=== PATIENT | male | born 1980 | race Caucasian/White ===

== ENCOUNTER 2019-10-04 11:47 | Emergency (ER) | payer OTHER, SELFPAY ==
--- NOTE | ~2019-10-04 | CT_ITS ---
EXAMINATION: CT shoulder LT wo con DATE: 10/04/2019 13:17 INDICATION: Left shoulder pain. TECHNIQUE: Computed tomography (CT) of the left shoulder was performed without intravenous contrast. Automated exposure control and iterative reconstruction technique were employed. The dose-length prod uct was 510.49 mGy-cm. COMPARISON: None FINDINGS: Bone alignment is normal. No fracture. Glenohumeral joint is normal. There is moderate acro mioclavicular joint osteoarthritis. The rotator cuff muscle bellies are normal. IMPRESSION: 1. Moderate left acromioclavicular joint osteoarthritis. Reviewed, dictated and finalized at location B.
--- NOTE | ~2019-10-04 | CT_ITS ---
EXAMINATION: CT cervical spine wo con DATE: 10/04/2019 13:17 INDICATION: Neck pain with radiculopathy. TECHNIQUE: Computed tomography (CT) of the cervical spine was performed without intravenous contrast. Automated exposure control and iterative reconstruction technique were employed. The dose-length pro duct was 373.44 mGy-cm. COMPARISON: None FINDINGS: There is mild kyphosis of cervical spine. Vertebral body heights are normal. There is mildl y decreased disc height at C5-C6. The following disc levels are specifically discussed: C2-C3: There is mild bilateral uncovertebral joint osteoarthritis. There is no facet joint osteoarthr itis. There is no neural foraminal stenosis. There is no central canal stenosis. C3-C4: There is mild bilateral uncovertebral joint osteoarthritis. There is no facet joint osteoarthr itis. There is no neural foraminal stenosis. There is no central canal stenosis. C4-C5: There is no uncovertebral joint osteoarthritis. There is no facet joint osteoarthritis. There is no neural foraminal stenosis. There is no central canal stenosis. C5-C6: There is moderate right and severe left uncovertebral joint osteoarthritis. There is no facet joint osteoarthritis. There is mild left neural foraminal stenosis. There is moderate central canal s tenosis. C6-C7: There is no uncovertebral joint osteoarthritis. There is no facet joint osteoarthritis. There is no neural foraminal stenosis. There is mild central canal stenosis. C7-T1: There is no uncovertebral joint osteoarthritis. There is mild bilateral facet joint osteoarthr itis. There is no neural foraminal stenosis. There is no central canal stenosis. IMPRESSION: 1. Moderate spondylosis at C5-C6 and mild spondylosis at other levels. Reviewed, dictated and finalized at location B.
[2019-10-04 11:51] VITALS: BP 157/93; PULSE 91; RESP 17; TEMP 36.6; O2SAT 100
--- NOTE | 2019-10-04 14:30 | ED.UPPEXIN ---
HPI - Extremity Injury (Upper) General Chief Complaint: Extremity Injury, Upper Stated Complaint: lt shoulder pain Time Seen by Provider: 10/04/19 12:14 Source: patient Mode of arrival: ambulatory Limitations: no limitations History of Present Illness HPI narrative: Patient presents with chief complaint of left shoulder pain and spasming that has occurred over the past week. Patient states that he was seen at [facility] but wants a second opinion as he felt that his care was rushed. 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 Patient states he has had trouble sleeping as he is a natural side sleeper and when any pressure is light on the shoulder the pain becomes intense. Patient states that he has been taking ibuprofen at home for discomfort. Patient states that he is also felt some sharp pains radiating from his neck and intermittent tingling to his left fingers. Patient states he has attempted to contact his primary care Dr. Griggs has that but has not been able to obtain a appointment. Related Data Allergies Allergy/AdvReac Type Severity Reaction Status Date / Time ketorolac [From Toradol] AdvReac Nausea and Verified 10/04/19 11:54 Vomiting Review of Systems Review of Systems: Narrative: EYES: Denies visual changes, redness, or discharge. ENT: Denies rhinorrhea, congestion, sore throat, or otalgia. CARDIOVASCULAR: Denies chest pain, palpitations, or edema. RESPIRATORY: Denies cough or dyspnea. GASTROINTESTINAL: Denies abdominal pain, nausea, vomiting, or diarrhea. GENITOURINARY: Denies dysuria or hematuria. SKIN: Denies rash or itching. MUSCULOSKELETAL: Reports left shoulder pain with intermittent left finger tingling and radiculopathy denies back pain, joint pain, or myalgia. NEUROLOGIC: Denies headache, numbness, dizziness, or weakness. [facility] Past Medical History Medical History (Updated 10/04/19 @ 14:42 by Ofe Duncan PA-C) Depression Elevated liver enzymes Headache Heart burn Hyperlipidemia Kidney stone Removed 2018 Family History Family History (Updated 07/14/17 @ 09:07 by DOCTOR UNKNOWN) Sibling Diabetes mellitus Father Family history of lung cancer Mother Family history of malignant neoplasm of breast in first degree relative Social History Social History (Updated 02/15/19 @ 08:43 by Zuleyma Russell [facility]) Tobacco type: smokeless tobacco Smokeless tobacco user: chewing tobacco Alcohol intake: never Gender identity (if verbalized by the patient): Male Exam Narrative: Exam Narrative: GENERAL: Well-appearing, well-nourished, and in no acute distress. HEAD: Normocephalic, atraumatic. EYES: PERRLA and EOMI. NECK: Supple. No adenopathy or masses. Spasming of the upper left trapezial muscle CHEST: Clear to auscultation. No respiratory distress. No wheezes rales or rhonchi HEART: Regular rate and rhythm. No murmur heard. Normal peripheral pulses. ABDOMEN: Soft, nontender, nondistended, normal active bowel sounds. EXTREMITIES: No outward signs of injury noted to left shoulder. Patient reports occasional sharp pain with abduction of the left shoulder above 70 degrees-patient states from neck to all fingertips. Sensation intact. Network Systems Consultant strength intact. SKIN: Warm, dry, no rash. NEURO: No focal deficits. Alert and oriented x3. PSYCH: Normal mood and affect. Course Vital Signs Vital signs: Vital Signs Temperature 98 F 10/04/19 11:51 Pulse Rate 91 10/04/19 11:51 Respiratory Rate 17 10/04/19 11:51 Blood Pressure 157/93 H 10/04/19 11:51 Pulse Oximetry 100 10/04/19 11:51 Temperature 98 F 10/04/19 11:51 Pulse Rate 99 10/04/19 14:50 Respiratory Rate 18 10/04/19 14:50 Blood Pressure 140/97 H 10/04/19 14:50 Pulse Oximetry 100 10/04/19 14:50 MDM - Extremity Injury (Upper) MDM Narrative Medical decision making narrative: Discussed with patient the lester
[2019-10-04 14:50] VITALS: BP 140/97; PULSE 99; RESP 18; O2SAT 100
== END 2019-10-04 14:55 | disposition home or self-care (01) ==
PROVIDERS: Emergency Provider Emergency Medicine; PCP Internal Medicine
DX: S46.912A Strain of unspecified muscle, fascia and tendon at shoulder and upper arm level, left arm, initial encounter (principal); M54.12 Radiculopathy, cervical region; F32.9 Major depressive disorder, single episode, unspecified; E78.5 Hyperlipidemia, unspecified; X58.XXXA Exposure to other specified factors, initial encounter
CPT/HCPCS: 72125; 73200; 99283

== ENCOUNTER 2019-11-19 02:14 | Outpatient (CLI) | payer OTHER, SELFPAY ==
[2019-11-19 18:59] LABS: SARS-CoV-2 RNA PCR Negative
== END 2019-11-19 02:15 | disposition home or self-care (01) ==
LOC: ANHCOVIDDT 02:14
PROVIDERS: PCP Internal Medicine; Visit Provider Internal Medicine Gastroenterology
DX: Z20.828 Contact with and (suspected) exposure to other viral communicable diseases (principal); M25.512 Pain in left shoulder; G89.29 Other chronic pain
CPT/HCPCS: 87635; C9803; U0003

== ENCOUNTER 2019-11-22 01:31 | Day surgery (SDC) | payer OTHER, SELFPAY ==
[2019-11-16 10:28] VITALS: BMI 29.9
[2019-11-22] MEDS: LACTATED RINGERS 1,000 ML 150 ML IV CONT (11:08)
[2019-11-22 11:12] VITALS: BP 153/98; PULSE 78; RESP 20; TEMP 36.1; O2SAT 98; BMI 30.2
--- NOTE | 2019-11-22 11:16 | WPDANESEPPF ---
Anes - Initial Pre Proc Eval Procedure: Operation Date: 11/22/19 12:15 Proposed Procedures p Esophagogastroduodenoscopy - Aidan Acuna MD Date/Time: 11/22/19 11:16 Surgeon: Aidan Acuna MD Pre Op Diagnosis: GERD Patient Data Age: 39 Gender: M Height: 5 ft 9 in Weight: 92 kg Allergies Allergy/AdvReac Type Severity Reaction Status Date / Time ketorolac [From Toradol] AdvReac Nausea and Verified 11/22/19 10:45 Vomiting Home Medications Medication Instructions Recorded Confirmed Type trazodone 50 mg tablet 50 mg PO .COMPLEX #30 tablet 07/13/19 11/22/19 Rx fluticasone propionate 50 1 spray NASAL BID #18.2 ml 10/06/19 11/22/19 Rx mcg/actuation nasal spray,suspension diltiazem HCl 60 mg 60 mg PO BID #60 cap 11/14/19 11/22/19 Rx capsule,extended release 12 hr nabumetone 500 mg tablet 500 mg PO BID PRN #30 tablet 11/14/19 11/22/19 Rx pantoprazole 20 mg tablet,delayed 20 mg PO QAM #30 tablet 11/21/19 11/22/19 Rx release Patient hx anesthesia problems: none Family hx anesthesia problems: none PMFSH Past Medical History Medical History (Updated 11/14/19 @ 14:40 by Rivera Griggs DO) Depression Elevated liver enzymes Essential hypertension Headache Heart burn Hyperlipidemia Kidney stone Removed 2018 Family History Family History Sibling Diabetes mellitus Father Family history of lung cancer Mother Family history of malignant neoplasm of breast in first degree relative Social History Social History Smoking status: Never smoker Tobacco type: smokeless tobacco Smokeless tobacco user: chewing tobacco Alcohol intake: never Substance use type: does not use Living arrangements: alone Gender identity (if verbalized by the patient): Male Spiritual care concerns: No Anes - Eval Final PreProcedure Day of Procedure 11/22/19 11:16 Patient weight: overweight Heart: regular rate and rhythm Lungs: clear to auscultation Airway: Mallampati scale class III Neurological: alert and oriented Last oral intake: >/= 8 hours ASA classification: III Emergent: no Anesthetic plan: proceed Anesthesia type and monitoring: general GIVS and standard monitoring Informed Consent: The patient's anesthetic plan and its attendant risks and benefits were discussed with the patient/family/POA. Questions were solicited and answers provided to the satisfaction of the patient/family/POA.
--- NOTE | 2019-11-22 12:02 | WPDHPUPDATE1 ---
History and Physical Update Update Date/Time: 11/22/19 12:02 History and Physical has been reviewed, including an updated exam of the patient. There are NO changes in the patient's condition. Risks, benefits, and alternatives have been discussed and questions answered. Patient agrees to proceed with procedure.
[2019-11-22 12:22] VITALS: BP 124/82; PULSE 90; RESP 20; O2SAT 98
[2019-11-22 12:32] VITALS: BP 118/78; PULSE 75; RESP 20; O2SAT 95
[2019-11-22 12:42] VITALS: BP 126/76; PULSE 75; RESP 20; O2SAT 96
== END 2019-11-22 13:05 | disposition home or self-care (01) ==
PROVIDERS: PCP Internal Medicine; Visit Provider Internal Medicine Gastroenterology
PROC: 0DJ08ZZ Inspection of Upper Intestinal Tract, Via Natural or Artificial Opening Endoscopic (ICD-10-PCS; CPT 43235; principal; 2019-11-22 12:15)
DX: K21.00 Gastro-esophageal reflux disease with esophagitis, without bleeding (principal); K44.9 Diaphragmatic hernia without obstruction or gangrene; K29.50 Unspecified chronic gastritis without bleeding; I10 Essential (primary) hypertension; E78.5 Hyperlipidemia, unspecified; F32.9 Major depressive disorder, single episode, unspecified; F17.220 Nicotine dependence, chewing tobacco, uncomplicated
CPT/HCPCS: 43239; 88305; J2704; J7120

== ENCOUNTER 2019-12-26 17:00 | Outpatient (RCR) | payer OTHER, SELFPAY ==
[2019-11-28 16:28] VITALS: BP_SYST 136
--- NOTE | 2019-11-28 17:19 | PTOPEVAL ---
PHYSICAL THERAPY EVALUATION AND PLAN OF CARE Thank you for referring Reynaldo Magallanes to [facility].? The patient is scheduled to be seen for therapy? 2x/week for 4 weeks. Please review, sign, date and return this plan of care CARRIE. I agree with and certify that the following plan of care is medically necessary. Referring Physician Date Attending Provider: Rivera Griggs, DO Evaluation Cardiovascular History Hx Hypertension Yes Gastrointestinal History Hx Gastroesophageal Reflux Disease Yes Genitourinary History Diagnosis left shoulder pain Onset August 2019 Cause insidious Subjective Information Reynaldo reports that his left Query Text:As Reported By Patient/ shoulder started bothering him Family in August 2019. He went on vacation which helped to reduce the pain for that time, he thinks because he was not working. States that now the left shoulder hurts too much to even sleep well. States that he holds his arm tucked up by his chest most of the time. Increased shoulder pain with driving, lifting, pulling, or anything with force. 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 Self Report Pain Assessment Left Shoulder(s) Reported Pain Level 7 Pain Description Aching Pain Frequency Acute,Continuous Greatest Pain Intensity 10 Pain Aggravating Factors Exercise/Activity,Lifting Pain Behaviors Irritable Pain Score Pain Score 7: Self Report Interventions Used Interventions Used By Clinicians Exercise,Heat Pain Relief Interventions Used By Lying Supine,Medication Patient Upper Extremity Range of Motion Scapular/ Shoulder Range of Motion Left Shoulder Flexion - Active 144 Shoulder Abduction - Active 112 Shoulder Abduction - Passive 136 Shoulder Medial Rotation - Active PSIS Query Text:Reach Behind the Back Shoulder Lateral Rotation - Active T1 Query Text:Reach Behind the Head Upper Extremity Muscle Strength Testing Scapular/Shoulder Left Shoulder Flexion Strength 4+ Good + Shoulder Abduction Strength 4+ Good + Shoulder Medial Rotation Strength 5 Normal Shoulder Lateral Rotation Strength 5 Normal Palpation Assessment Palpation Palpation trigger points noted to left infraspinatus, upper trapezius , and pectorlis major - noted tender to palpation
--- NOTE | 2019-12-15 18:01 | PCPTNOTE ---
Patient called & cancelled scheduled appointment this date no reason given.
--- NOTE | 2019-12-22 17:34 | PCPTNOTE ---
Patient called & cancelled scheduled appointment this date stating he is unable to make it.
--- NOTE | 2019-12-26 17:33 | PTOPEVAL ---
PHYSICAL THERAPY DISCHARGE NOTE Thank you for referring Reynaldo Magallanes to [facility] [place]. Please review, sign, date and return this plan of care [facility]. I agree with and certify that the following plan of care is medically necessary. Referring Physician Date Discharge Diagnosis left shoulder pain Onset August 2019 Cause insidious Subjective Information Reynaldo reports that his pain is Query Text:As Reported By Patient/ really about the same. His Family pain management doctor gave him medication. Since he started the pain medication, he started experiencing panic attacks. He doesn't know if the medication caused the pain attacks but it is the only thing that is different. Pain management is trying to get him an MRI. Self Report Pain Assessment Left Shoulder(s) Reported Pain Level 6 Pain Description Aching Pain Frequency Acute,Continuous Pain Aggravating Factors Exercise/Activity,Lifting Pain Behaviors Irritable Pain Score Pain Score 6: Self Report Interventions Used Interventions Used By Clinicians Electrical Stimulation, Exercise,Heat Pain Relief Interventions Used By Lying Supine,Medication Patient Upper Extremity Range of Motion Scapular/ Shoulder Range of Motion Left Shoulder Flexion - Active 144 Shoulder Abduction - Active 150 Shoulder Medial Rotation - Active lateral L3 Query Text:Reach Behind the Back Shoulder Lateral Rotation - Active T1 Query Text:Reach Behind the Head Upper Extremity Muscle Strength Testing Scapular/Shoulder Left Shoulder Flexion Strength 4+ Good + Shoulder Abduction Strength 4+ Good + Shoulder Medial Rotation Strength 5 Normal Shoulder Lateral Rotation Strength 5 Normal Special Tests-Upper Extremity Shoulder Special Tests Empty Can (supraspinatus) Test Positive Left Painful Arc Negative Left Hawkin's Wilman Test Negative Left PT Clinical Summary Reynaldo is a 39 yo male presenting to outpatient physical therapy with chronic left shoulder pain. He presents today with improved ROM compared to initial visit and is strength is WFL. He does have a positive empty can sign today, which he did not
== END 2020-02-08 15:40 | disposition home or self-care (01) ==
LOC: ANHPT 17:00
PROVIDERS: PCP Internal Medicine; Visit Provider Internal Medicine
DX: M25.512 Pain in left shoulder (principal); G89.29 Other chronic pain
CPT/HCPCS: 97014; 97110; 97140; 97161; G0283

== ENCOUNTER 2020-01-07 10:43 | Outpatient (CLI) | payer OTHER, SELFPAY ==
--- NOTE | ~2020-01-07 | MR_ITS ---
EXAMINATION: MR shoulder LT wo con DATE: 01/07/2020 11:59 INDICATION: Left shoulder pain. TECHNIQUE: Magnetic resonance imaging (MRI) of the left shoulder was performed without intravenous co ntrast. Sequences included axial PD-weighted FS FSE, coronal oblique PD-weighted FS FSE and T2-weight ed FS FSE, and sagittal oblique T2-weighted FS FSE and T1-weighted FSE. COMPARISON: Head CT 10/04/2019 FINDINGS: Coracoacromial arch: The acromion undersurface is flat in morphology (type I). There is a stellate fracture of distal clav icle with low signal fracture lines and bone marrow edema. There is severe acromioclavicular joint os teoarthritis. There is mild subacromial/subdeltoid bursitis. Rotator cuff: There is mild supraspinatus and infraspinatus tendinopathy. There is an interstitial tear of infraspi natus tendon at its distal insertion measuring 1.3 cm anterior to posterior by 2 mm proximal to dista l by 30% tendon thickness. Teres minor tendon is normal. There is mild subscapularis tendinopathy. Th ere is mild fatty atrophy of infraspinatus muscle belly. Biceps tendon and glenoid labrum: Biceps tendon is in bicipital groove. There is mild intra-articular biceps tendinopathy. There is deg eneration of superior labrum without well-defined tear. Fluid: There is no glenohumeral joint effusion. Bones/cartilage: Glenoid cartilage is normal. Humeral head cartilage is normal. IMPRESSION: 1. Stellate subchondral fracture of distal clavicle. 2. Severe acromioclavicular joint osteoarthritis. 3. Mild subacromial/subdeltoid bursitis. 4. Partial-thickness tear of infraspinatus tendon. 5. Mild intra-articular biceps tendinopathy. Reviewed, dictated and finalized at location A. 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
== END 2020-01-07 10:44 | disposition home or self-care (01) ==
PROVIDERS: PCP Internal Medicine; Visit Provider Nurse Practitioner
DX: S42.035A Nondisplaced fracture of lateral end of left clavicle, initial encounter for closed fracture (principal); M19.012 Primary osteoarthritis, left shoulder; S46.812A Strain of other muscles, fascia and tendons at shoulder and upper arm level, left arm, initial encounter; M75.52 Bursitis of left shoulder
CPT/HCPCS: 73221

== ENCOUNTER 2020-01-09 23:14 | Emergency (ER) | payer OTHER, SELFPAY ==
[2020-01-09 23:20] VITALS: BP 182/96; PULSE 111; RESP 16; TEMP 36.6; O2SAT 100
--- NOTE | 2020-01-09 23:32 | ED.GENADULT ---
HPI - General Adult General Chief complaint: Unspecified Stated complaint: wants a COVID test Time Seen by Provider: 01/09/20 23:24 Source: patient Mode of arrival: ambulatory Limitations: no limitations History of Present Illness HPI narrative: Patient is a 39-year-old male requesting for Covid test. Patient states that his girlfriend's been exposed to Covid and he just wants to get tested. Patient denies any symptoms. Related Data Allergies Allergy/AdvReac Type Severity Reaction Status Date / Time cortisone Allergy Nausea and Verified 01/09/20 23:22 Vomiting ketorolac [From Toradol] AdvReac Nausea and Verified 01/09/20 23:22 Vomiting Review of Systems Review of Systems: All systems reviewed & are unremarkable except as noted in HPI and below Constitutional: Constitutional: Denies body ache(s), Denies chills, Denies excessive sweating, Denies fatigue, Denies fever(s), Denies headache(s), Denies lethargy, Denies malaise, Denies weakness and Denies weight loss Eyes: Eyes: Denies blurry vision, Denies change in vision and Denies loss of vision ENT: Denies dizziness, Denies ear discharge, Denies headache(s), Denies lip swelling, Denies epistaxis, Denies nasal congestion, Denies neck pain, Denies throat swelling and Denies tongue swelling Cardiovascular: Cardiovascular: Denies chest pain, Denies chest pain at rest, Denies chest pain with activity, Denies diaphoresis, Denies rapid heart rate, Denies edema, Denies irregular heart rhythm, Denies lightheadedness, Denies palpitations, Denies dyspnea and Denies dyspnea on exertion Respiratory: Respiratory: Denies chest congestion, Denies cough, Denies hemoptysis, Denies dyspnea and Denies dyspnea on exertion Gastrointestinal: Gastrointestinal: Denies abdominal pain, Denies melena, Denies hematochezia, Denies diarrhea, Denies nausea, Denies vomiting and Denies hematemesis Musculoskeletal: Musculoskeletal: Denies abnormal gait, Denies deformity, Denies joint swelling, Denies limited range of motion, Denies neck pain and Denies numbness Neurologic: Denies Abnormal speech present, Denies abnormal gait, Denies confusion, Denies dizziness, Denies headache(s), Denies focal weakness, Denies loss of vision, Denies numbness, Denies Other visual disturbances, Denies Sensory deficit (Neuro) and Denies weakness Psychiatric: Psychiatric: Denies confusion, Denies depression, Denies auditory hallucinations, Denies homicidal ideation and Denies suicidal ideation Endocrine: Endocrine: Denies cold intolerance, Denies excessive sweating, Denies fatigue, Denies heat intolerance and Denies palpitations Hematologic/Lymphatic: Hematologic/Lymphatic: Denies easy bleeding and Denies easy bruising Allergic/Immunologic: Allergic/Immunologic: Denies lip swelling, Denies throat swelling and Denies tongue swelling [facility] Past Medical History Medical History (Updated 01/09/20 @ 23:35 by Darshan Busby MD) Clavicle fracture Depression Elevated liver enzymes Essential hypertension Headache Heart burn Hyperlipidemia Kidney stone Removed 2019 Rotator cuff tear Family History Family History (System 12/30/19 @ 10:38 by Dedra Lemon) Sibling Diabetes mellitus Father Family history of lung cancer Mother Family history of malignant neoplasm of breast in first degree relative Social History Social History (System 12/30/19 @ 10:38 by Dedra Lemon) Smoking status: Never smoker Tobacco type: smokeless tobacco Smokeless tobacco user: chewing tobacco Alcohol intake: never Substance use type: does not use Gender identity (if verbalized by the patient): Male Spiritual care concerns: No Exam Const: General: cooperative, healthy appearing, comfortable, no acute distress, well developed, alert and awake; No confusion Orientation/consciousness: oriented to person, oriented to place, oriented to time, patient oriented x3 and No confusion Limitations: no limitation
== END 2020-01-09 23:53 | disposition home or self-care (01) ==
PROVIDERS: Emergency Provider Emergency Medicine; PCP Internal Medicine
DX: Z20.828 Contact with and (suspected) exposure to other viral communicable diseases (principal); I10 Essential (primary) hypertension; E78.5 Hyperlipidemia, unspecified; Z87.442 Personal history of urinary calculi; F17.220 Nicotine dependence, chewing tobacco, uncomplicated
CPT/HCPCS: 99281

== ENCOUNTER 2020-10-19 09:01 | Outpatient (CLI) | payer OTHER, SELFPAY ==
[2020-10-19 10:06] LABS: Basophils Absolute Auto 0.1 K/mm3 (0.0-0.1); Basophils Percent Auto 0.7 % (0.2-1.2); Eosinophils Absolute Auto 0.1 K/mm3 (0-0.3); Eosinophils Percent Auto 1.9 % (0-4.4); Hematocrit 43.3 % (42.0-52.0); Hemoglobin 14.6 g/dL (14.0-18.0); Immature Granulocyte Absolute 0.02 K/mm3 (0.00-0.031); Immature Granulocyte Percent A 0.3 % (0-0.5); Lymphocytes Absolute Auto 1.67 K/mm3 (0.9-3.2); Lymphocytes Percent Auto 24.6 % (18.3-44.2); Mean Corpuscular HGB Conc 33.7 g/dl (32-36); Mean Corpuscular Hemoglobin 30.5 pg (26-34); Mean Corpuscular Volume 90.4 fl (80-100); Mean Platelet Volume 8.8 fl (7.4-10.4); Monocytes Absolute Auto 0.5 K/mm3 (0.1-0.6); Monocytes Percent Auto 7.7 % (2.6-8.5); Neutrophils Absolute Auto 4.4 K/mm3 (1.3-6.7); Neutrophils Percent Auto 64.8 % (45.5-73.1); Platelet Count Result 256 k/mm3 (150-375); Red Blood Count 4.79 M/mm3 (4.6-6.20); Red Cell Distribution Width 12.5 % (11.5-14.5); White Blood Count 6.8 K/mm3 (4.5-10.0)
[2020-10-19 10:18] LABS: Alanine Aminotransferase 50 U/L (4-50); Albumin Level 4.2 g/dL (3.5-5.1); Alkaline Phosphatase 88 U/L (38-126); Anion Gap 6 mmol/L (8-16); Aspartate Amino Transferase 32 U/L (17-59); Bilirubin,Total 0.6 mg/dL (0.2-1.3); Blood Urea Nitrogen 12 mg/dL (9-20); Calcium 9.1 mg/dL (8.4-10.2); Carbon Dioxide 25 mmol/L (22-30); Chloride 106 mmol/L (98-107); Cholesterol 233 mg/dL (0-200); Estimated Glomerular Filt Rate > 60; Glucose 123 mg/dL (65-110); HDL Direct 41 mg/dL; Potassium 3.9 mmol/L (3.4-5.0); Sodium 137 mmol/L (137-145); Triglycerides 206 mg/dL (<150)
[2020-10-19 10:29] LABS: LDL Cholesterol Direct 130 mg/dL
== END 2020-10-19 09:02 | disposition home or self-care (01) ==
PROVIDERS: PCP Internal Medicine; Visit Provider Clinical Nurse Specialist
DX: I10 Essential (primary) hypertension (principal)
CPT/HCPCS: 36415; 80053; 80061; 85025

== ENCOUNTER 2020-11-02 09:03 | Outpatient (CLI) | payer OTHER, SELFPAY ==
[2020-11-02 10:19] LABS: Hemoglobin A1C 5.4 % (<5.7)
== END 2020-11-02 09:04 | disposition home or self-care (01) ==
PROVIDERS: PCP Internal Medicine; Visit Provider Nurse Practitioner
DX: R73.9 Hyperglycemia, unspecified (principal)
CPT/HCPCS: 36415; 83036

== ENCOUNTER 2021-03-15 11:56 | Outpatient (CLI) | payer BC, SELFPAY ==
--- NOTE | ~2021-03-15 | XR_ITS ---
XR knee RT 2V DATE: 03/15/2021 12:17 INDICATION: Knee pain for years. No known injury. TECHNIQUE: Standing AP and lateral views COMPARISON: None FINDINGS: Small suprapatellar knee joint effusion is suggested. No fracture or dislocation, periosteal reaction or bone destruction, radiopaque intra-articular loose body or chondrocalcinosis is noted. The joint spaces are preserved. IMPRESSION: Possible small knee joint effusion Reviewed, dictated and finalized at location B. 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
--- NOTE | ~2021-03-15 | XR_ITS ---
XR knee LT 2V DATE: 03/15/2021 12:17 INDICATION: Knee pain for years. No known injury. TECHNIQUE: Standing AP and lateral views COMPARISON: None FINDINGS: Mild suprapatellar knee joint effusion is suggested. No fracture or dislocation, periosteal reaction or bone destruction, radiopaque intra-articular loose body or chondrocalcinosis or signific ant joint space narrowing is noted. IMPRESSION: Mild knee joint effusion is suggested Reviewed, dictated and finalized at location B. N TENDER
== END 2021-03-15 11:57 | disposition home or self-care (01) ==
PROVIDERS: PCP Internal Medicine; Visit Provider Nurse Practitioner
DX: M25.561 Pain in right knee (principal); M25.562 Pain in left knee
CPT/HCPCS: 73560

== ENCOUNTER 2021-06-04 13:49 | Outpatient (CLI) | payer BC, SELFPAY ==
--- NOTE | ~2021-06-04 | XR_ITS ---
EXAMINATION: XR abdomen/kub 1V INDICATION: Left ureteral stone TECHNIQUE: Supine views of the abdomen were obtained on 2 radiographs. COMPARISON: None FINDINGS: There is a 10 mm stone in the lower pole of the left kidney. A 15 mm density projects below the left L3 transverse process. The bowel gas pattern is normal. The visualized lung bases are clear . IMPRESSION: 1. Left nephrolithiasis. 2. 15 mm density projecting below the left L3 transverse process which may reflect stone versus bowel contents. Reviewed, dictated and finalized at location F. IMPRESSION: 1. Left nephrolithiasis. 2. 15 mm density projecting below the left L3 transverse process which may refl ect stone versus bowel contents.
== END 2021-06-04 13:50 | disposition home or self-care (01) ==
PROVIDERS: PCP Internal Medicine; Visit Provider Nurse Practitioner Family
DX: N20.2 Calculus of kidney with calculus of ureter (principal)
CPT/HCPCS: 74018

== ENCOUNTER 2021-06-11 13:02 | Outpatient (CLI) | payer BC, SELFPAY ==
--- NOTE | ~2021-06-11 | US_ITS ---
EXAMINATION: US retroperitoneal comp DATE: 06/11/2021 13:24 INDICATION: Left ureteral stone TECHNIQUE: Multiple grayscale and Doppler ultrasound images of the kidneys were obtained. COMPARISON: None. FINDINGS: The right kidney measures 12.1 x 5.8 x 6.1 cm. The left kidney measures 11.4 x 5.0 x 5.5 cm . There is a 1.6 cm cyst in the upper pole of the kidney. There is a nonobstructing 1.2 cm stone in t he lower pole of the left kidney. The kidneys demonstrate normal parenchymal echogenicity. There is n o hydronephrosis. The bladder is normal. IMPRESSION: 1. Nonobstructing left nephrolithiasis. Reviewed, dictated and finalized at location A.
== END 2021-06-11 13:03 ==
LOC: MICIMG 13:03
PROVIDERS: PCP Nurse Practitioner Family; Visit Provider Nurse Practitioner Family
DX: N20.0 Calculus of kidney (principal)
CPT/HCPCS: 76770

== ENCOUNTER 2021-06-26 10:08 | Outpatient (CLI) | payer BC, SELFPAY ==
--- NOTE | 2021-06-26 10:45 | ECG_ITS ---
Measurements Intervals [place] Rate: 71 P: 28 [place]: 159 QRS: 59 QRSD: 103 T: 29 QT: 359 QTc: 391 Interpretive Statements SINUS RHYTHM BORDERLINE T WAVE ABNORMALITY- INFERIOR LEADS BASELINE WANDER- I, II, V1-V3 BORDERLINE ECG Electronically Signed On 06-26-2021 12:07:27 CDT by Josh Pandya D.O.
[2021-06-26 11:00] LABS: INR 0.9; Prothrombin Time 12.1 Seconds (11.1-14.7)
== END 2021-06-26 10:09 | disposition home or self-care (01) ==
PROVIDERS: PCP Internal Medicine; Visit Provider Urology
DX: N20.0 Calculus of kidney (principal); I10 Essential (primary) hypertension; Z01.818 Encounter for other preprocedural examination; R94.31 Abnormal electrocardiogram [ECG] [EKG]
CPT/HCPCS: 36415; 85610; 85730; 87086; 93005

== ENCOUNTER 2021-06-28 00:37 | Day surgery (SDC) | payer BC, OTHER, SELFPAY ==
[2021-06-24 15:07] VITALS: BMI 31.2
--- NOTE | 2021-06-24 15:35 | PC.NURSE ---
Report to the Outpatient Waiting Room, entrance under the green pavilion located off [facility], at time 0630 on date 06/28/21. OR Time: 0830____. - You and your visitor will be asked a series of questions to screen for COVID 19 for your protection. - Only one visitor is allowed at this time. - The patient visitor is requested to leave or wait in car when not with patient. - A mask is required within the hospital. Patients may have clear liquids (water, carbonated beverages, clear teas, apple juice) until 3 hours prior to surgery with a maximum of 20 ounces. - No food from midnight until time of surgery - Infants may have breast milk until 4 hours before surgery, infant formula 6 hours prior to surgery. - Children will be allowed to drink immediately following surgery. If applicable, please bring a bottle or sippy cup to assist with drinking. Juice, water, soda, and popsicles are readily available. For infants on formula, please bring formula the day of surgery. Pacifiers are allowed. Take the following medications with a SIP of water the morning of surgery: diltiazem Medications to discontinue per physician Date to take last dose Please no make-up, nail wolof, hairspray, perfume, deodorant, or body powder the day of surgery. No jewelry (including any body piercings) or valuables the day of surgery, leave them at home. Please take a shower or bath the night before, or the morning of, surgery with an antibacterial soap. Wear comfortable, loose fitting clothing. Children are encouraged to wear pajamas. - Jewelry must be removed prior to entering the operating room. Rings and piercings that are not removed may be cut off. - The hospital will not accept responsibility for valuables. - Please leave all valuables, including medications, at home the day of surgery. If you are going home after surgery, a licensed equipment driver must drive you home. - NO public transportation without another adult. - We recommend that an adult stay with you for 24 hours following discharge. - We also recommend that you do not drive, make important decision, drink alcoholic beverages, or take any drugs that were not prescribed by your health care provider for at least 24 hours after your discharge time. For Pediatric surgeries, we recommend two adults accompany the child home (only one inside the building at this time). Follow any additional instructions given to you from your surgeon. If you or anyone in your household have experienced Covid symptoms in the past week, please notify your surgeon or the nurse liaison at the phone number below for possible testing. Telephone instructions given to Reynaldo Magallanes and asked if any additional questions and then verbalized understanding. Patient advised to call surgeon office or pre surgery nurse liaison [phone] if any additional questions.
--- NOTE | 2021-06-27 13:39 | WPDANESEPPF ---
Anes - Initial Pre Proc Eval Procedure: Operation Date: 06/28/21 08:30 Proposed Procedures p Left Extracorporeal Shock Wave Lithotripsy - Ishan Hernandez MD s Possible Left Ueteroscopy, Posible Left Stent Placement - Ishan Hernandez MD Date/Time: 06/27/21 13:39 Surgeon: Ishan Hernandez MD Pre Op Diagnosis: Lt Renal Stone Patient Data Age: 40 Gender: M Height: 1.75 m Weight: 96 kg Allergies Allergy/AdvReac Type Severity Reaction Status Date / Time cortisone Allergy Intermediate Nausea and Verified 06/28/21 07:07 Vomiting ketorolac [From Toradol] AdvReac Intermediate Nausea and Verified 06/28/21 07:07 Vomiting Home Medications Medication Instructions Recorded Confirmed Type pantoprazole 40 mg tablet,delayed 40 mg PO BID #60 tablet 11/20/20 06/28/21 Rx release diltiazem HCl 60 mg tablet 60 mg PO BID #180 tablet 01/07/21 06/28/21 Rx fluticasone propionate 50 1 spray NASAL BID #18.2 ml 01/17/21 06/28/21 Rx mcg/actuation nasal spray,suspension sumatriptan succinate 25 mg tablet See Rx Instructions PO .COMPLEX #9 02/26/21 06/24/21 Rx tablet nabumetone 500 mg tablet 500 mg PO BID PRN #30 tablet 03/12/21 06/28/21 Rx tamsulosin 0.4 mg capsule 0.4 mg PO QHS #90 cap 05/31/21 06/28/21 Rx doxepin 10 mg capsule 10 mg PO QHS #30 cap 06/07/21 06/28/21 Rx hydroxyzine HCl 25 mg PO DAILY PRN 06/24/21 06/28/21 History Patient hx anesthesia problems: none Family hx anesthesia problems: none Results Review: All pre-operative results and documents have been reviewed as part of the pre-operative evaluation. [facility] Past Medical History Medical History Claustrophobia Clavicle fracture Depression Elevated liver enzymes Essential hypertension Headache Heart burn Hyperlipidemia Kidney stone Removed 2019 Rotator cuff tear Family History Family History Sibling Diabetes mellitus Father Family history of lung cancer Mother Family history of malignant neoplasm of breast in first degree relative Social History Social History Smoking status: Never smoker Tobacco type: smokeless tobacco Smokeless tobacco user: chewing tobacco Alcohol intake: never Substance use: never Substance use type: does not use Living arrangements: with friend(s) Gender identity (if verbalized by the patient): Male Spiritual care concerns: No Anes - Eval Final PreProcedure Day of Procedure 06/27/21 13:39 Patient weight: obese Heart: regular rate and rhythm Lungs: clear to auscultation and normal air movement Airway: Mallampati scale class II Neurological: alert and oriented Last oral intake: >/= 8 hours ASA classification: III Emergent: no Anesthetic plan: proceed Anesthesia type and monitoring: general LMA Results Review: All pre-operative results and documents have been reviewed as part of the pre-operative evaluation. Informed Consent: The patient's anesthetic plan and its attendant risks and benefits were discussed with the patient/family/POA. Questions were solicited and answers provided to the satisfaction of the patient/family/POA.
[2021-06-28] VITALS (8 sets, daily range): BP systolic 89–160; BP diastolic 46–91; PULSE 71–107; RESP 13–20; TEMP 36.1–36.5; O2SAT 93–100
--- NOTE | ~2021-06-28 | XR_ITS ---
EXAMINATION: XR abdomen/kub 1V DATE: 06/28/2021 06:29 INDICATION: Nephrolithiasis for planned shockwave lithotripsy. TECHNIQUE: A supine view of the abdomen on 2 radiographs was obtained. COMPARISON: None. FINDINGS: Unchanged teardrop shaped no other urolithiasis. No dilated loops of gas-filled bowel to suggest obst ruction. Lung bases are clear. Bones are unremarkable. 11 mm stone projecting over the mid left kidne y. IMPRESSION: 1. Unchanged 11 mm left renal stone. Reviewed, dictated and finalized at location A.
--- NOTE | 2021-06-28 06:50 | WPDHPUPDATE1 ---
History and Physical Update Update Date/Time: 06/28/21 06:50 Pt. having no flank pain and KUB x2 shows he's passed his left ureteral stone. Will forego left ureteroscopy and just plan left ESWL. History and Physical has been reviewed, including an updated exam of the patient. There are NO changes in the patient's condition. Risks, benefits, and alternatives have been discussed and questions answered. Patient agrees to proceed with procedure.
[2021-06-28] MEDS: LACTATED RINGERS 1,000 ML 30 ML IV CONT ×2 (07:25→09:33)
[2021-06-28] MEDS: ceFAZolin 2 GM/D5W 50 ML 2 GM/50 ML BAG IVPB (08:16)
--- NOTE | 2021-06-28 08:47 | W.PM.PROC2 ---
Procedure Note - Detailed Date of Procedure 06/28/21 Pre-op Diagnosis Lt Renal Stone Post-op Diagnosis Same Procedure Performed Left ESWL Surgeon Ishan Hernandez MD Anesthesia General Description of Procedure The patient was brought to the operative suite where he was placed in the supine position on the Dornier lithotripsy table. The focal point of the lithotripter was placed at a 10mm left renal calculus. A total of 2500 shocks were delivered at a power setting of 3. There appeared to be good fragmentation of the stone. The patient tolerated the procedure well and was taken to the recovery room in good condition. Drains No Packing No Pathology None sent Complications No immediate complications Condition Stable Disposition PACU
[2021-06-28] MEDS: oxyCODONE HCL (*CRX) 5 MG TAB IR PO (10:05)
== END 2021-06-28 10:51 | disposition home or self-care (01) ==
PROVIDERS: PCP Internal Medicine; Visit Provider Urology
PROC: (CPT 50590; principal; 2021-06-28 08:30)
DX: N20.0 Calculus of kidney (principal); I10 Essential (primary) hypertension; F32.9 Major depressive disorder, single episode, unspecified; F17.220 Nicotine dependence, chewing tobacco, uncomplicated; E66.9 Obesity, unspecified; Z68.31 Body mass index [BMI] 31.0-31.9, adult
CPT/HCPCS: 50590; 74018; A9270; J0690; J2250; J2405; J2704; J3010; J7120

== ENCOUNTER 2022-05-02 15:31 | Outpatient (CLI) | payer BC, OTHER, SELFPAY ==
--- NOTE | ~2022-05-02 | XR_ITS ---
XR_KNEE1-2VLT_CR 05/02/2022 15:52 Indication: Knee pain Procedure: 2 views left knee Comparison: No prior studies for comparison. Findings: There is anatomic alignment. No significant joint space narrowing. No fracture, subluxation or dislocation. No significant joint effusion. Impression: 1: No significant bone or joint abnormality. Reviewed, dictated and finalized at location A. Impression: 1: No significant bone or joint abnormality.
--- NOTE | ~2022-05-02 | XR_ITS ---
XR_KNEE1-2VRT_CR 05/02/2022 15:53 Indication: Right knee pain Procedure: 2 views right knee Comparison: No prior studies for comparison. Findings: No fracture, subluxation or dislocation. No significant joint effusion. Anatomic alignment. No joint space narrowing. Impression: 1: No significant bone or joint abnormality. Reviewed, dictated and finalized at location A. Impression: 1: No significant bone or joint abnormality.
== END 2022-05-02 15:32 | disposition home or self-care (01) ==
PROVIDERS: PCP Internal Medicine; Visit Provider Pain Medicine Interventional Pain Medicine
DX: M75.50 Bursitis of unspecified shoulder (principal); Z79.891 Long term (current) use of opiate analgesic; M25.569 Pain in unspecified knee; F41.1 Generalized anxiety disorder; G89.4 Chronic pain syndrome
CPT/HCPCS: 73560

== ENCOUNTER 2023-03-04 10:12 | Outpatient (CLI) | payer BC, SELFPAY ==
--- NOTE | ~2023-03-04 | XR_ITS ---
XR_KNEE1-2VRT_CR 03/04/2023 10:41 INDICATION: Right knee pain PROCEDURE: 2 views right knee COMPARISON: 05/02/2022 FINDINGS: Fracture, dislocation or subluxation is not identified. No significant joint effusion. The soft tissues appear within normal limits. No foreign bodies are identified. IMPRESSION: 1: NO ACUTE BONE OR JOINT ABNORMALITY IDENTIFIED. Reviewed, dictated and finalized at location B. CTOR PAYMENT
--- NOTE | ~2023-03-04 | XR_ITS ---
XR_KNEE1-2VLT_CR 03/04/2023 10:41 Indication: Left knee pain Procedure: 2 views left knee Comparison: 05/02/2022 Findings: No fracture, subluxation or dislocation. There is anatomic alignment. Small joint effusion. Impression: 1: Small joint effusion. Reviewed, dictated and finalized at location B. ET RESEARCH INTERN Impression: 1: Small joint effusion.
--- NOTE | ~2023-03-04 | XR_ITS ---
Lumbosacral Spine: AP and lateral views Clinical History: Pain Findings: The normal lordotic curve is maintained. The vertebral bodies and posterior elements are i ntact. The intervertebral disc spaces are preserved. The sacroiliac joints are normally outlined. Impression: No significant abnormality. Reviewed, dictated [place] [facility] [place] MACHINE Impression: No significant abnormality.
== END 2023-03-04 10:13 | disposition home or self-care (01) ==
LOC: ANHIMG 10:18
PROVIDERS: PCP Internal Medicine; Visit Provider Pain Medicine Interventional Pain Medicine
DX: M17.9 Osteoarthritis of knee, unspecified (principal); M54.17 Radiculopathy, lumbosacral region; F41.1 Generalized anxiety disorder; M25.462 Effusion, left knee
CPT/HCPCS: 72100; 73560

== ENCOUNTER 2023-04-16 11:22 | Outpatient (CLI) | payer BC, SELFPAY ==
[2023-04-16 11:36] LABS: Basophils Absolute Auto 0.1 K/mm3 (0.0-0.1); Eosinophils Absolute Auto 0.2 K/mm3 (0-0.3); Hematocrit 46.2 % (42.0-52.0); Immature Granulocyte Absolute 0.03 K/mm3 (0.00-0.031); Immature Granulocyte Percent A 0.4 % (0-0.5); Lymphocytes Absolute Auto 2.76 K/mm3 (0.9-3.2); Lymphocytes Percent Auto 35.2 % (18.3-44.2); Mean Corpuscular HGB Conc 32.5 g/dl (32-36); Mean Corpuscular Hemoglobin 30.3 pg (26-34); Mean Corpuscular Volume 93.3 fl (80-100); Mean Platelet Volume 8.4 fl (7.4-10.4); Monocytes Absolute Auto 0.8 K/mm3 (0.1-0.6); Monocytes Percent Auto 9.9 % (2.6-8.5); Neutrophils Percent Auto 51.5 % (45.5-73.1); Platelet Count Result 257 k/mm3 (150-375); Red Blood Count 4.95 M/mm3 (4.6-6.20); Red Cell Distribution Width 12.9 % (11.5-14.5); White Blood Count 7.8 K/mm3 (4.5-10.0)
[2023-04-16 11:57] LABS: Alanine Aminotransferase 30 U/L (6-50); Albumin Level 4.2 g/dL (3.5-5.1); Alkaline Phosphatase 88 U/L (38-126); Anion Gap 6 mmol/L (8-16); Aspartate Amino Transferase 31 U/L (17-59); Bilirubin,Total 0.7 mg/dL (0.2-1.3); Blood Urea Nitrogen 15 mg/dL (9-20); Calcium 9.3 mg/dL (8.4-10.2); Carbon Dioxide 29 mmol/L (22-30); Chloride 105 mmol/L (98-107); Cholesterol 169 mg/dL (0-200); Estimated Glomerular Filt Rate > 60; Glucose 108 mg/dL (65-110); HDL Direct 35 mg/dL; Potassium 3.7 mmol/L (3.4-5.0); Sodium 140 mmol/L (137-145); Triglycerides 182 mg/dL (<150)
[2023-04-16 12:07] LABS: LDL Cholesterol Direct 110 mg/dL
== END 2023-04-16 11:23 | disposition home or self-care (01) ==
LOC: ANHLAB 11:23
PROVIDERS: PCP Internal Medicine; Visit Provider Nurse Practitioner
DX: I10 Essential (primary) hypertension (principal)
CPT/HCPCS: 36415; 80053; 80061; 84443; 85025

== ENCOUNTER 2024-06-28 12:59 | Outpatient (CLI) | payer BC, MEDICAID, SELFPAY ==
--- NOTE | ~2024-06-28 | XR_ITS ---
XR_KNEE1-2VRT_CR 06/28/2024 13:24 INDICATION: Right knee pain PROCEDURE: 2 views right knee COMPARISON: No prior studies for comparison. FINDINGS: Fracture, dislocation or subluxation is not identified. Mild osteoarthritis of the right kn ee. The soft tissues appear within normal limits. No foreign bodies are identified. IMPRESSION: 1: Mild osteoarthritis of the right knee. Reviewed, dictated and finalized at location B.
--- NOTE | ~2024-06-28 | XR_ITS ---
Lumbosacral Spine: AP and lateral views Clinical History: Pain Findings: The normal lordotic curve is maintained. The vertebral bodies and posterior elements are i ntact. The intervertebral disc spaces are preserved. Moderate facet arthropathy noted at the lower l umbar spine. The sacroiliac joints are normally outlined. Impression: Moderate facet arthropathy at the lower lumbar spine. Reviewed, dictated and finalized at location . Impression: Moderate facet arthropathy at the lower lumbar spine.
--- NOTE | ~2024-06-28 | XR_ITS ---
XR_[id number] 06/28/2024 13:24 INDICATION: Left knee pain PROCEDURE: 2 views left knee COMPARISON: 03/04/2023 FINDINGS: Fracture, dislocation or subluxation is not identified. The soft tissues appear within norm al limits. No foreign bodies are identified. IMPRESSION: 1: NO ACUTE BONE OR JOINT ABNORMALITY IDENTIFIED. Reviewed, dictated and finalized at location B.
--- OUTSIDE RECORDS SUMMARY | 2024-06-28 13:07 | XMS_ITS | CONTINUITY OF CARE DOCUMENT ---
Author Name javad farnsworth Address Unknown Organization [facility] Address [address] [facility] [address] [place] [address] Phone [phone] Care Team Providers Care Recreation Programmer Name Role Phone Rufina RUANO, Jose M Unavailable [phone] MIRELLA RUANO, DLILAN Unavailable [phone] Zander RUANO, Ken Gil Unavailable [phone] INSURANCE PROVIDERS Payer name Policy type / Coverage type [employer] party ID [employer] OPEN ACCESS Other [id number]
--- OUTSIDE RECORDS SUMMARY | 2024-06-28 13:07 | XMS_ITS | Data Portability ---
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 He reports injury on 11/14/2023 when he was at a wedding and dancing, twisted his knee. Since then he has had pain, swelling, and difficulty walking. he reports catching, and his knee also has been giving out on him on a regular basis. He has a history of fluid on the knees and has gotten multiple aspirations and cortisone injections. He has also been wearing a brace which has helped. He rates his pain as 7/10. 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 Review of systems per patient questionnaire Physical exam: Antalgic gait. 1+ effusion. Tenderness over the medial joint line and anterior medial knee. Range of motion 0-130, pain in terminal flexion, positive Dustin's. Guarded with ligament exam but a firm endpoint on Faustina's, posterior drawer, stable varus and valgus stress. X-rays of the knee were reviewed, demonstrating no acute bony abnormality, preserved joint space Given his acute injury with Mechanical symptoms and giving out of the knee, I would like to send him for MRI to evaluate the ligaments and meniscus. In the meantime, we will also send him to physical therapy. He can not take anti-inflammator ies because of history of kidney disease, so he should use topical Voltaren. He currently chews tobacco, we discussed the effects of nicotine on healing and that he should cut back on nicotine as much as possible. He should be off nicotine for elective surgery. 3 minutes were spent discussing this. We will see him back after the MRI. Not available 11/30/2023 11:31:30 12/28/2023 12/28/2023 43-year-old male presents for follow-up of his right knee. He originally had meniscal symptoms and we sent him for MRI. He has been doing physical therapy as well and reports that has been helping, feeling better, he currently rates his pain 6/10. His mechanical symptoms have been improving as well. he has not been taking any anti-inflammator ies. He is chronically on Vicodin. He has tenderness primarily over the anterior lateral knee. No tenderness over the medial joint line. Range of motion 0-140, no pain at terminal flexion MRI was reviewed, demonstrating medial meniscus tear with a horizontal tear of the medial body and a possible ramp lesion Given his improvement with conservative management, We will continue with physical therapy. He may follow-up as needed. We discussed if he has worsening mechanical symptoms, that would be a reason to consider surgery for partial meniscectomy Versus repair. He is in agreement with plan. Not available 12/28/2023 10:30:09 Plan of Treatment Reminders Order Date Submit Date Provider Last Modified By Organization Details Last Modified Time Details Appointments None recorded. Lab None recorded. Referral physical therapist referral - continuatio n of therapy for R knee 2023 [facility], [address] [place], [address], 4 10:31:06 physical therapist referral - eval and treat 2023 024 [facility], [address] [place], [address], 4 10:54:12 Procedures None recorded. Surgeries None recorded. Imaging MRI, knee, w/o contrast [address] [facility] [address] [place], [address], 17:09:33 Medication Orders None recorded. Patient TargetsNo targets recorded. Patient InstructionsNo instructions recorded. Reason for Referral Physical Therapist Referral for Pain of right knee joint eval and treat Referring Physician: Papa Smith, Orthopedic Surgery, Encounter Date: 11/30/2023 Physical Therapist Referral for Pain of right knee joint R knee continuation of therapy for R knee Referring Physician: Papa Smith, Orthopedic Surgery, Encounter Date: 12/28/2023 Results Created Date Observation Date Name Description Value Unit Range Abnormal Flag Note LastModifiedBy Organization Detail LastModifiedTime 11/25/1911/15/2023 XR, knee, 3 view No observ ation record ed. [email or web address] Not Available 11/09 10:43:19 12/22/19 24 12/22/2023 MRI, knee, w/o contr ast No observ ation record ed. [email or web address] [facility] [address] [place], [address], 12/22/2023 22:06:03 02/16/19 25 02/17/2024 CT, abdom en + pelvi s, w/o contr ast No observ ation record ed. [address] [place], [address], 02/17/2024 14:50:55 02/18/19 25 02/19/2024 XR, abdom en No observ ation record ed. [address] [place], [address], 02/19/2024 11:07:34 Result Notes None recorded. Problems Name Problem SNOMED Code Status Onset Date Resolution Date Notes Provider Name and Address Organization Details Recorded Time Pain of right knee joint 940799137877257 Active 2023 PATRICIA Easton, [place] [facility] [place] [employer] [facility] 10:17:29 Problem Notes None recorded. Procedures Surgical History None recorded. Imaging Results Imaging Date Name Status LastModified by Organiz ation Details LastModified Time 11/15/2023 XR, knee, 3 view completed [email or web address] Information not available 11/25/2023 10:43:19 12/22/2023 MRI, knee, w/o contrast completed [email or web address] [facility] [address] [place], [address], 12/22/2023 22:06:03 02/17/2024 CT, abdomen + pelvis, w[facility]o [email or web address] [address] [place], [address], 02/17/2024 14:50:55 02/19/2024 XR, abdomen completed [email or web address] [address] [place], [address], 02/19/2024 11:07:34 Procedure Notes None recorded. Medical Equipment None Reported. Allergies Allergen ID Allergen Name Allergen Category Reaction Reaction Severity Criticality Documentation Date Start Date Code Code System Note Provider Name and Address Organization Details Recorded Time 24826 tramadol medicatio n Not available Not available Not available 11/30/2023 46194 RxNorm PATRICIA Easton, [facility] [employer] [facility] [employer] 4 10:13:22 05086 cortisone medicatio n lighthead edness Not available Not available 11/30/2023 2878 RxNorm PATRICIA Easton, [facility] [employer] [facility] [employer] 10:13:47 Medications Name Sig Start Date Stop Date Status Note LastModified by Organization Details LastModified Time cyclobenzapr ine 10 mg tablet 11/29 completed Not Available Not Available Not Available nicotine 14 mg/24 hr daily transdermal patch 11/29 completed Not Available Not Available Not Available divalproex 250 mg tablet,delay ed release 11/29 completed Not Available Not Available Not Available tizanidine 4 mg tablet TAKE 1 TABLET BY MOUTH TWICE A DAY NEEDED active Not Available Not Available No t Available ranitidine 300 mg tablet 11/29 completed Not Available Not Available Not Available ondansetron HCl 4 mg tablet 11/29 completed Not Available Not Available Not Available amlodipine 5 mg tablet 11/29 completed Not Available Not Available Not Available divalproex 500 mg tablet,delay ed release 11/29 completed Not Available Not Available Not Available doxepin 10 mg capsule TAKE 1 CAPSULE BY MOUTH EVERY DAY AT BEDTIME NEEDED FOR SLEEP active Not Available Not Available No t Available sulfamethoxa zole 800 mg-trimethop rim 160 mg tablet TAKE 1 TABLET BY MOUTH EVERY 12 HOURS FOR 7 DAYS 12/23 completed Not Available Not Available Not Available hydrocodone 10 mg-acetamino phen 325 mg tablet TAKE 1 TABLET BY MOUTH 4 TIMES A DAY NEEDED active Not Available Not Available No t Available hydrocodone 7.5 mg-acetamino phen 325 mg tablet TAKE 1 TABLET BY MOUTH 5 TIMES A DAY NEEDED 12/23 completed Not Available Not Available Not Available cephalexin 500 mg capsule TAKE 1 CAPSULE BY MOUTH EVERY 8 HOURS FOR 10 DAYS 11/29 completed Not Available Not Available Not Available pantoprazole 40 mg tablet,delay ed release TAKE 1 TABLET BY MOUTH TWICE DAILY active Not Available Not Available No t Available acetaminophe n 300 mg-codeine 60 mg tablet 11/29 completed Not Available Not Available Not Available zolpidem 10 mg tablet 11/29 completed Not Available Not Available Not Available diltiazem 60 mg tablet TAKE 1 TABLET BY MOUTH TWICE DAILY 11/29 completed Not Available Not Available Not Available diazepam 5 mg tablet active Not Available Not Available No t Available escitalopram 10 mg tablet 11/29 completed Not Available Not Available Not Available escitalopram 20 mg tablet 11/29 completed Not Available Not Available Not Available Vitals Date Recorded Body height Body mass index (BMI) Body weight Provider Name and Address Organization Details Last Updated DateTime 11/30/2023 152.4 cm 41 kg/m2 69797.4 g PATRICIA Easton [employer] 11/30/2023 10:12:31 Date Recorded Body height Body mass index (BMI) Body weight Provider Name and Address Organization Details Last Updated DateTime 12/28/2023 152.4 cm 41 kg/m2 77656.4 g PATRICIA Easton [employer] 12/28/2023 09:55:47 Social History Question Answer Notes LastModified by Organizat ion Details LastModified Time What Was The Date Of Your Most Recent Tobacco Screening? 11/30/2023 [email or web address] Information not available 11/30/2023 Sex: Unknown Functional Status Question Answer Note LastModified by Organization D etails LastModified Time Do you or have you ever used any other forms of tobacco or nicotine? Yes [email or web address] [email or web address] Information not available 11/30/2023 What is your level of alcohol consumption? None [email or web address] Information not available 11/30/2023 Mental Status None recorded. Family History Relationship Description Onset Age of this Age Resolved Age Notes LastModified by Organization Details LastModified Time Father History of malignant neoplasm [email or web address] Not available 2023 10:16:01 Father Diabetes mellitus Not available 2023 10:16:08 Medical History No medical history recorded. Past Encounters Encounter ID Performer Location Encounter Start Date Encounter Closed Date Diagnosis/Indication Diagnosis SNOMED-CT Code Diagnosis ICD10 Code Diagnosis Note [id number] Papa Smith MD [facility] [address] 11/30/2023 09:56:16 11/30/2023 10:44:20 Pain of right knee joint [id number] 13412 M25.679 [id number] Papa Smith MD [facility] [address] 12/28/2023 09:53:12 12/28/2023 10:18:01 Pain of right knee joint [id number] 70867 M25.561 Health Concerns Section Related Observation LastModified by Organization Detai ls LastModified Time None Recorded Concern Status LastModified by Organization Details LastModified Time None Recorded Advance Directives Directive None Recorded Payers Encounter Date Sequence Insurance Name Policy Number Policy Beth Covered Member ID Beth Member ID Guarantor Name 11/30/2023 1 [facility] (MEDICAID REPLACEMENT - HMO) [id number] Reynaldo Magallanes [id number] Reynaldo Magallanes 12/28/2023 1 [facility] (MEDICAID REPLACEMENT - HMO) [id number] Reynaldo Magallanes [id number] Reynaldo Magallanes
--- OUTSIDE RECORDS SUMMARY | 2024-06-28 13:07 | XMS_ITS | Continuity of Care Document ---
Author Organization [facility] Address [address] [place] [address] [place] [address] Phone Care Team Providers Care Check Totaler Name Role Phone Nehemias Carter MD Unavailable Unavailable Allergies, Adverse Reactions, Alerts Substance Reaction Status Criticality No Known Allergies Active No Inform ation Medications Medication Instructions Dosage Effective Dates (start - stop) Status Comments Zantac 300 mg tablet take 1 tablet by oral route every day at bedtime - Active Ambien 10 mg tablet take 1 tablet by oral route every day at bedtime 10 MG - Active Tylenol-Codeine #4 300 mg-60 mg tablet take 1 tablet by oral route every 6 hours as needed - Active PRN for headache, 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 Valium 5 mg tablet take 1 tablet by oral route 2 times every day 5 MG - Active avoid driving or operate machines Lexapro 20 mg tablet take 1 tablet by oral route every day 20 MG - Active Procedures Procedure Date OFFICE/OUTPATIENT VISIT, EST OFFICE/OUTPATIENT VISIT, EST OFFICE/OUTPATIENT VISIT, EST OFFICE/OUTPATIENT VISIT, EST OFFICE/OUTPATIENT VISIT, EST OFFICE/OUTPATIENT VISIT, EST OFFICE/OUTPATIENT VISIT, EST OFFICE/OUTPATIENT VISIT, EST OFFICE/OUTPATIENT VISIT, EST PREV VISIT, NEW, AGE 18-39 OFFICE/OUTPATIENT VISIT, NEW Advance Directives Directive Yes / No Effective Date File Name No Information Encounters Encounter Description Practice Location Reason(s) For Visit Diagnoses Date Provider Providers Copied on Encounter OFFICE/OUTPA TIENT VISIT, [facility], [address], [place], [place], [address], [place] tel:[phone] [facility] headache1 (chief complaint) GERD1 (chief complaint) anxiety1 (chief complaint) insomnia1 (chief complaint) Generalized anxiety disorderOther insomniaHeadacheGER D w/o esophagitis 6 Raul Del Cid. [address], [place], [place], [address] , [place]. tel:[phone] Referring Provider: [address], [place], [place], [address]. tel:[phone] OFFICE/OUTPA TIENT VISIT, [facility], [address], [place], [place], [address], [place] tel:[phone] [facility] HTN1 (chief complaint) GERD1 (chief complaint) headache1 (chief complaint) anxiety1 (chief complaint) muscle pain1 (chief complaint) HeadacheGERD w/o esophagitisGenerali zed Anxiety DisorderOther insomnia 5 Raul Del Cid. [address], [place], [place], [address] , [place]. tel:[phone] Referring Provider: [address], [place], [place], [address]. tel:[phone] OFFICE/OUTPA TIENT VISIT, [facility], [address], [place], [place], [address], [place] tel:[phone] [facility] HTN1 (chief complaint) headache1 (chief complaint) GERD1 (chief complaint) anxiety (chief complaint) anxiety1 (chief complaint) Essential (primary) hypertensionTobacco useGERD without esophagitisOther insomnia 5 Raul Del Cid. [address], [place], [place], [address] , [place]. tel:[phone] Referring Provider: [address], [place], [place], [address]. tel:[phone] OFFICE/OUTPA TIENT VISIT, [facility], [address], [place], [place], [address], [place] tel:[phone] [facility] headache (chief complaint) HTN (chief complaint) MOod swing (chief complaint) insomnia (chief complaint) GERD (chief complaint) Dietary surveillance and counselingInsomnia, unspecifiedHeadache BP - High blood pressureMood disorder 5 Raul Del Cid. [address], [place], [place], [address] , [place]. tel:[phone] Referring Provider: [address], [place], [place], [address]. tel:[phone] OFFICE/OUTPA TIENT VISIT, [facility], [address], [place], [place], [address], [place] tel:[phone] [facility] HTN (chief complaint) GERD (chief complaint) headache (chief complaint) mood disorder (chief complaint) back pain (chief complaint) HeadacheBP - High blood pressurePersonality disorder characterized by alternating episodes of mood swings from mild to moderate depression to episodes full of hyperactivity, excitement, elevated mood and high energyLumbago 5 Raul Del Cid. [address], [place], [place], [address] , [place]. tel:[phone] Referring Provider: [address], [place], [place], [address]. tel:[phone] OFFICE/OUTPA TIENT VISIT, [facility], [address], [place], [place], [address], [place] tel:[phone] [facility] HTN (chief complaint) headache (chief complaint) GERD (chief complaint) depression (chief complaint) Dietary surveillance and counselingBP - High blood pressureHeadacheIns omnia, unspecifiedGERD - Gastro-esophageal reflux disease 5 Raul Walker [address], [place], [place], [address] , [place]. tel:[phone] Referring Provider: [address], [place], [place], [address]. tel:[phone] OFFICE/OUTPA TIENT VISIT, [facility], [address], [place], [place], [address], [place] tel:[phone] [facility] headache (chief complaint) HLP (chief complaint) HTN (chief complaint) INsomnia (chief complaint) HeadacheInsomnia, unspecifiedOther and unspecified hyperlipidemiaBlood pressure elevated 5 Raul Del Cid. [address], [place], [place], [address] , [place]. tel:[phone] Referring Provider: Nehemias Carter, [address], [place], [place], [address]. tel:[phone] OFFICE/OUTPA TIENT VISIT, [facility], [address], [place], [place], [address], [place] tel:[phone] [facility] headache (chief complaint) Headache 5 Raul Del Cid. [address], [place], [place], [address] , [place]. tel:[phone] Referring Provider: [address], [place], [place], [address]. tel:[phone] OFFICE/OUTPA TIENT VISIT, [facility], [address], [place], [place], [address], [place] tel:[phone] [facility] headache (chief complaint) TG (chief complaint) vitamin D (chief complaint) Insomnia (chief complaint) HeadacheInsomnia, OtherOther and unspecified hyperlipidemiaUnspe cified vitamin d deficiency 5 Raul Del Cid. [address], [place], [place], [address] , [place]. tel:[phone] Referring Provider: [address], [place], [place], [address]. tel:[phone] PREV VISIT, NEW, AGE 18-39 [facility], [address], [place], [place], [address], [place] tel:[phone] [facility] Physical (chief complaint) Routine Medical ExamHeadacheMonocul ar exotropia with a patternInsomnia, OtherRoutine Medical Exam 5 Raul Del Cid. [address], [place], [place], [address] , [place]. tel:[phone] Family History Family Member Type Diagnosis Age At Onset Mother Problem (finding) Coronary artery disease Brother Problem (finding) Diabetes mellitus Father Problem (finding) Diabetes mellitus Father Problem (finding) COPD Payers Payer name Insurance type Covered libertarian ID Authoriza tion(s) No Information Social History Type Description Quantity Date Captured Comments Alcohol Use Details Caffeine Use Details Unknown Tobacco Use Status Chews tobacco Smoking Status Current some day smoker 016 Sex Male Vital Signs Date / Time: Height Weight BMI Pulse Rate Blood Pressure Temperature Respiratory Rate Body Surface Area Head Circumference BMI percentile Pulse Ox Inhaled Ox 7:12 PM 69.00 in 176.00 lbs 25.9 9 kg/m eter (2) 78 /min 130/70 mm[Hg] 98.5 F 18 /min Chief Complaint And Reason For Visit From encounter dated '02/13/2015 19:12'. headache1 (chief complaint). Description: Pt has chronic headache. Pt feels throbbing headache Pt has headache 2-3 per week. Pt feels stressed out. His dad recently. Pt denies any head injury GERD1 (chief complaint). Description: Donig ok with zantac. Pt has not done upper GI yet. anxiety1 (chief complaint). Description: Pt has chornic anxiety and depression and bipolar. Pt has mood swings. Pt states that lexapro works well. Pt still feels angry and also has mood swings. Pt denies any suicidal or homicidal thought, Pt denies any crying spells. Pt denies any feeling of hopelssness. Pt feels anxious insomnia1 (chief complaint). Description: Pt has insomnia. Pt takes ambien qhs PRN and working well. Pt denies any snoring or any trouble with breathing at night. 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 ordered History Of Present Illness Encounter Date Complaint History Of Prese nt Illness headache1 Pt has chronic h eadache. Pt feels throbbing headache Pt has headache 2-3 per week. Pt feels stressed out. His dad recently. Pt denies any head injury GERD1 Donig ok with za ntac. Pt has not done upper GI yet. anxiety1 Pt has chornic a nxiety and depression and bipolar. Pt has mood swings. Pt states that lexapro works well. Pt still feels angry and also has mood swings. Pt denies any suicidal or homicidal thought, Pt denies any crying spells. Pt denies any feeling of hopelssness. Pt feels anxious insomnia1 Pt has insomnia. Pt takes ambien qhs PRN and working well. Pt denies any snoring or any trouble with breathing at night. HTN1 Pt has not been taking norvasc and his BP is borderline today. Pt denies any chest pain or headache GERD1 Pt has not had a ny heartburn since taking zantac. Pt denies any abd pain or GERD symptmos headache1 Pt has chronic i ntermittent throbbing headache with photophobia and nausea. Pt has had the headache for several years Pt denies any worsening headache. Pt has not done MRI yet Pt failed prophylatic med. Pt dneies any acute headache. Pt denies any head injury anxiety1 Pt has chornic a nxiety and depression. Pt tkaes lexapro and depakote and is helping his mood. Pt has mood swings, which is also well controlled by medication. Pt denies any crying spells. Pt denies any suicidal or homicidal thought muscle pain1 Pt c/o bilateral upper back msucle spasm and pain for several months. Pt also feels tightness around the muscle. Pt denies any back pain Pt denies any injury HTN1 Pt has not been taking norvasc and his BP is ok today. Pt denies any chest pain or headache headache1 Pt has chronic h eadache. Pt has headache 4-6 per month. Pt has throbbing and pounding headache. Pt has nasuea, vomiting and photophobia. Pt states that he had MRI scheduled but did not go since his dad is sick now. Pt states that tylenol #4 PRN helps for his headache GERD1 Pt has GERD symp toms and pt states that zantac works great. Pt denies any abd pain anxiety anxiety1 Pt has chronic a nxiety and depression and mood swings Pt states that his mood is very good since taking depakote. Pt is on lexapro also. Pt has some situational depression since his father has lung CA now. Pt denies any suicidal thought. Pt denies any feeling of hopelessness. headache Additional infor mation: Pt has intermittent throbbing headache. Pt states that tylenol #4 works. Pt has headache 8 times last month. Pt still has not done mRI yet. HTN Pt taks norvasc. BP borderline today MOod swing Pt has chronic a nxiety and depression and mood swings. Pt states that depakote and lexapro helps Pt denies any suicidal thought. Pt states that his mood is better and more stable now. insomnia The patient pres ents for insomnia. Relevant history: a BMI of 26.69. The patient has the following risk factors for insomnia: use of alcohol. Additional information: Pt takes ambien and working ok. Pt denies any snoring or any AM fatigue or any trouble with breathing at night. GERD Pertinent negati ves include back pain, constipation, diarrhea, dyspnea, fever, heartburn, hematuria, nausea, rash, vomiting, weight gain and weight loss. HTN Pt takes norvasc . His BP is ok. Pt denies any chset pain GERD Pertinent negati ves include constipation, diarrhea, dyspnea, fever, hematuria, rash, vomiting, weight gain and weight loss.Additional information:Pt denies any further GERD symptoms. Pt denies any abd pain. Pt is off meds. Pt does not know the name of meds. headache Pertinent negati ves include vomiting. Additional information: Pt has chronic headache. Pt c/o throbbing headache with nausea. Pt has not done MRI yet. Pt states that he has headache about 3-4 per month. Pt still has not done MRI of brain yet. Pt denies any worsening hedache. mood disorder Pt has mood swin g and irritability. Pt denies any suicidal or homicidal thought. Pt states that he just feels very irritable and he is angry at his employer. Pt states that he notices depakote and lexapro helped a little but not too much. back pain Additional infor mation: Pt c/o chronic bailateral flank pain and low back pain for at least 3-4 years. Pt denies any loss of bowel or bladder control. Pt denies any UTI symptmos. Pt states that he had history of renal stone which feels the same way. NO fever, chill. Noinjur. HTN Pt has persisten t HTN. Pt denies any chest pain headache Pertinent negati ves include memory loss or vomiting. Additional information: Pt has chronic headache. Pt still has not had MRi done yet. Pt takes tylenol codeine PRN for headache. GERD Associated sympt oms include heartburn. Pertinent negatives include constipation, diarrhea, dyspnea, fever, hematuria, rash, vomiting, weight gain and weight loss.Additional information:Pt has been having GERD symptoms. Pt is taking something from ER and working well but not sure what it is . Pt denies any GERd or abd pain. depression The patient pres ents with anxious/fearful thoughts but denies fatigue. The depression is associated with headache. The patient denies any vomiting and weight gain. Additional information: Pt has depression and anxiety and anger issue and mood swings for long time. Pt denies any suicidal thought. Pt has crying spells and lack of motivation. headache Additional infor mation: Pt has chronic headache. Pt c.o piercing headache all over head. Pt c/o throbbing and nausea, vomiting and photophobia with headache Pt has not done MRI yet. Tylenol #4 works ok. HLP Pt has elevated TG. Pt has been trying to cut down on carb and fat. HTN Pt has mildly HT N. Pt denies any chest pain or worse headache INsomnia The patient pres ents for insomnia. Relevant history: a BMI of 25.25. The patient has the following risk factors for insomnia: use of alcohol. Additional information: Pt takes ambien 5 mg but not working anymore. headache Additional infor mation: Pt has chronic throbbing headache about 2-3 per month. Pt states that propranolol actually gave him headache. Pt has not had MRI done yet. Pt denies any head injury. Instructions Date Instruction Additional Infor mation Prescribed Activity and Exercise Education Related to Dietary Surveillance and Counseling Prescribed Diet Educ ation/Lifestyle Education Regarding Diet Related to Dietary Surveillance and Counseling Prescribed Diet Educ ation/Lifestyle Education Regarding Diet Related to Dietary Surveillance and Counseling Prescribed Activity and Exercise Education Related to Dietary Surveillance and Counseling Prescribed Diet Educ ation/Lifestyle Education Regarding Diet Related to Dietary Surveillance and Counseling Prescribed Activity and Exercise Education Related to Dietary Surveillance and Counseling Prescribed Diet Educ ation/Lifestyle Education Regarding Diet Related to Dietary Surveillance and Counseling Prescribed Activity and Exercise Education Related to Dietary Surveillance and Counseling Prescribed Diet Educ ation/Lifestyle Education Regarding Diet Related to Dietary Surveillance and Counseling Prescribed Activity and Exercise Education Related to Dietary Surveillance and Counseling Assessments Type Assessment Date assessment Generalized anxiety disorder Feb assessment Other insomnia assessment Headache assessment GERD w/o esophagitis Mental Status Date Cognitive Assessment Orientation - [place] ed to time, place, person, situation.
--- OUTSIDE RECORDS SUMMARY | 2024-06-28 13:07 | XMS_ITS ---
Author Organization [facility] Address [address] [place] [address] Care Team Providers Care Sociology Professor Name Role Phone Sebastien Rainey Unavailable [phone] SOCIAL HISTORY Sex Assigned At : Social History Observation Description Sex Assigned At Male Encounters Encounter Location Date Provider Diagnosis [facility] [address] [facility] [address] [place] [address] 03/16/2024 Sebastien Rainey PLAN OF TREATMENT No Information Progress Notes * Reynaldo MAGALLANESDOB:1980 (43 yo M)Acc No.[id number]:03/16/2024 Progress Notes Patient: Reynaldo MAGALLANES Provider: MD KIMANI, Diann.Michael.C.P, F.A.S.N. :1980 Age:43 Y Sex:Male Date:03/16/2024 Address:[address] [place], [place] [id number] Subjective: * Chief Complaints: * * Medical History: Objective: Assessment: Plan: * Treatment: * Billing Information: * Visit Code: * Procedure Codes: * Sign off status: Pending * Provider: MD KIMANI, Diann.Michael.C.P, F.A.S.N. Date: 03/16/2024
--- OUTSIDE RECORDS SUMMARY | 2024-06-28 13:07 | XMS_ITS | Patient Health Record ---
Author Organization [facility] Address [address] [facility] [address] [place] [address] Care Team Providers Care Residence Supervisor Name Role Phone Sebastien Rainey Unavailable [phone] REASON FOR REFERRAL No Information SOCIAL HISTORY Sex Assigned At : Social History Observation Description Sex Assigned At Male PROBLEMS Problem Type ICD Code Onset Dates Problem Status W/U Status Risk SNOMED Code Notes Problem Chronic pain syndrome (G89.4) Active confirmed Chronic meryl n syndrome (690367168) Problem Essential (primary) hypertension (I10) Active confirmed Essential hypertension (99538014) Problem Chronic kidney disease, stage 2 (mild) (N18.2) Active confirmed Chronic kidne y disease stage 2 (401594284) Problem Calculus of kidney (N20.0) Active confirmed Calculus of kidney (01038728) Problem Renal osteodystrophy (N25.0) Active confirmed Renal osteodystrophy (63805779) Problem Atrioventricular septal defect, unspecified as to partial or complete (Q21.20) Active confirmed Encounters Encounter Location Date Provider Diagnosis [facility] [address] [place] [address] 02/26/2024 Sebastien Rainey Chronic kidney disea se, stage 2 (mild) N18.2 ; Calculus of kidney N20.0 ; Essential (primary) hypertension I10 ; Renal osteodystrophy N25.0 and Chronic pain syndrome G89.4 [facility] [address] [place] [address] 03/02/2024 Sebastien Rainey Chronic kidney disea se, stage 2 (mild) N18.2 ; Chronic pain syndrome G89.4 ; Renal osteodystrophy N25.0 ; Essential (primary) hypertension I10 ; Calculus of kidney N20.0 and Atrioventricular septal defect, unspecified as to partial or complete Q21.20 [facility] [address] [place] [address] 03/16/2024 Sebastien Rainey [facility] [address] [address] 03/02/2024 Sebastien Rainey [facility] [address] [address] 03/02/2024 Sebastien Rainey [facility] [address] [address] 03/02/2024 Sebastine Rainey ASSESSMENTS Encounter Date Diagnosis Assessment Notes Treatment Notes Treatment Clinical Notes Section Notes 02/26/2024 Chronic kidney disease, stage 2 (mild) (ICD-10 - N18.2) 02/26/2024 Calculus of kidney (ICD-10 - N20.0) 03/02/2024 Chronic pain syndrome (ICD-10 - G89.4) 03/02/2024 Chronic kidney disease, stage 2 (mild) (ICD-10 - N18.2) 02/26/2024 Essential (primary) hypertension (ICD-10 - I10) 03/02/2024 Renal osteodystrophy (ICD-10 - N25.0) 02/26/2024 Renal osteodystrophy (ICD-10 - N25.0) 03/02/2024 Essential (primary) hypertension (ICD-10 - I10) 03/02/2024 Calculus of kidney (ICD-10 - N20.0) 02/26/2024 Chronic pain syndrome (ICD-10 - G89.4) 03/02/2024 Atrioventricular septal defect, unspecified as to partial or complete (ICD-10 - Q21.20) PLAN OF TREATMENT No Information
--- OUTSIDE RECORDS SUMMARY | 2024-06-28 13:07 | XMS_ITS ---
Author Organization [facility] Address [address] [place] [address] Care Team Providers Care Public Health Microbiologist Name Role Phone Sebastien Rainey Unavailable [phone] MEDICATIONS Medication SIG (Take, Route, Frequency, Duration) Notes Start Date End Date Status Doxycycline Hyclate 100 MG 1 capsule Ora lly twice a day for 14 days 03/02/2024 03/16/2024 Active SOCIAL HISTORY Sex Assigned At : Social History Observation Description Sex Assigned At Male Encounters Encounter Location Date Provider Diagnosis [facility] [address] [place] [address] 03/02/2024 Sebastien Rainey PLAN OF TREATMENT Medication Medication Name Sig Start Date Stop Date Notes Doxycycline Hyclate 100 MG 1 capsule Ora lly twice a day for 14 days 03/02/2024 03/16/2024 Progress Notes * Reynaldo MAGALLANESDOB:1980 (43 yo M)Acc No.[id number]:03/02/2024 Patient: Reynaldo MAGALLANES :1980 Age:43 Y Sex:Male Address:[facility] [place] [address] * Refills Refill Doxycycline Hyclate Capsule, 100 MG, Orally, 28 Capsule, 1 capsule, twice a day, 14 days * * Date:
--- OUTSIDE RECORDS SUMMARY | 2024-06-28 13:07 | XMS_ITS ---
Author Organization [facility] Address [address] [place] [address] Care Team Providers Care Lawn Technician Name Role Phone Sebastien Rainey Unavailable [phone] MEDICATIONS Medication SIG (Take, Route, Frequency, Duration) Notes Start Date End Date Status Doxycycline Hyclate 100 MG 1 capsule Ora lly twice a day for 14 days 03/02/2024 03/16/2024 Active SOCIAL HISTORY Sex Assigned At : Social History Observation Description Sex Assigned At Male Encounters Encounter Location Date Provider Diagnosis [facility] [address] [place] [address] 03/02/2024 Sebastien Rainey PLAN OF TREATMENT Medication Medication Name Sig Start Date Stop Date Notes Doxycycline Hyclate 100 MG 1 capsule Ora lly twice a day for 14 days 03/02/2024 03/16/2024 Progress Notes * Reynaldo MAGALLANESDOB:1980 (43 yo M)Acc No.[id number]:03/02/2024 Patient: Reynaldo MAGALLANES :1980 Age:43 Y Sex:Male Address:[facility] [place] [address] * Refills Refill Doxycycline Hyclate Capsule, 100 MG, Orally, 28 Capsule, 1 capsule, twice a day, 14 days * * Date:
--- OUTSIDE RECORDS SUMMARY | 2024-06-28 13:07 | XMS_ITS | Clinical Summary ---
Author Organization [facility] Address [address] [place] [address] Care Team Providers Care Micrographics Services Supervisor Name Role Phone Ken Fermin MD Primary Care Provider [phone] Source Comments [facility],non-owned Affiliates and Associated Physician Practices is amultiple site organization consisting of ambulatory clinics and hospital sitesin [place], [place], [place] and [place]. This disclosure is being madepursuant to the Care Everywhere program and may not contain all information available regarding this patient. Last updated 17.[facility] [employer] Allergies Active Allergy Reactions Criticality Noted Date Comments Ketorolac GI Discomfort 03/09/2018 Medications * Be aware that medications may not be up to date on this document. Alwaysverify current medications with the patient. raNITIdine (ZANTAC) 150 MG tablet 8 Active acetaminophen (TYLENOL) 500 MG tablet Take 500 mg by mouth every 4 hours as needed for Fever or Pain Maximum allowable Acetaminophen amount = 4 Grams (4000 mg) / 24 hours. Active Active Problems Problem Noted Date Diagnosed Date Acute kidney injury 08/15/2018 Hydronephrosis with obstructing calculus 019 Right nephrolithiasis 08/15/2018 GERD (gastroesophageal reflux disease) 9 Left nephrolithiasis 11/02/2017 Social History Tobacco Use Types Packs/Day Years Used Date Smoking Tobacco: Never Smokeless Tobacco: Current Chew Alcohol Use Standard Drinks/Week Comments No 0 (1 standard drink = 0.6 oz pur e alcohol) Sex and Gender Information Value Date Recorded Sex Assigned at Not on file Legal Sex Male 4:25 PM CDT Gender Identity Not on file Sexual Orientation Not on file Last Filed Vital Signs Vital Sign Reading Time Taken Comments Blood Pressure 136/82 08/24/2018 6:30 PM CDT Pulse 80 08/24/2018 6:30 PM CDT Temperature 37.1 C (98.7 F) 08/24/2018 6:10 PM CDT Respiratory Rate 18 08/24/2018 6:30 PM CDT Oxygen Saturation 100% 08/24/2018 6:30 PM CDT Inhaled Oxygen Concentration 40% 11/04/2017 3 :10 PM CDT Weight 83.5 kg (184 lb) 08/24/2018 4:09 PM CDT Height 175.3 cm (5' 9 ) 08/24/2018 4:09 PM CDT Body Mass Index 27.17 08/24/2018 4:09 PM CDT Plan of Treatment Health Maintenance Due Date Last Done Comments LIPID TESTING 1980 HIV SCREENING 09/28/1994 HEPATITIS C SCREENING 09/24/1997 DTAP/TDAP/TD VACCINES (1 - Tdap) 09/28/1998 HEPATITIS B VACCINE (1 of 3 - 19+ 3-dose series) 09/28/1998 COVID-19 VACCINE ( - 2023-2 5 season) 2023 DEPRESSION SCREENING 02/10/2024 INFLUENZA VACCINE (Season Ended) 2024 ZOSTER VACCINE (1 of 2) 09/28/2029 HIB VACCINE Aged Out No longer eligi ble based on patient's age to complete this topic HPV VACCINE Aged Out No longer eligi ble based on patient's age to complete this topic MENINGOCOCCAL (Group B) VACC INE SHARED DECISION-MAKING Aged Out No longer eligibl e based on patient's age to complete this topic MENINGOCOCCAL GROUPS A/C/Y/W VACCINE Aged Out No longer eligible b ased on patient's age to complete this topic PNEUMOCOCCAL VACCINE Aged Out No long er eligible based on patient's age to complete this topic Medical Devices Implanted Type Area Railroad Track Inspector Device Identifier Shelf Expiration Date Model / Serial / Lot Stent Uret 6fr 26cm Pgtl Crv Tpr Tip Implanted:Qty: 1 on 11/04/2017 by Corrie Clarke DO at [facility] Left: [facility] 04/19/2020 [id number] / / Insurance MED[place]ID - [place] [facility] Advance Directives * Full Code (Latest Code Status on File) Date Activated Date Inactivated Comments 08/15/2018 4:27 PM 08/16/2018 5:47 PM * Full Code Date Activated Date Inactivated Comments 11/04/2017 10:54 AM 11/04/2017 6:01 PM * Full Code Date Activated Date Inactivated Comments 11/02/2017 9:22 PM 11/03/2017 6:42 PM Care Teams Micrographics Services Supervisor Relationship Specialty Start Date End Date Ken Fermin MD [address] [facility] [address] [place] [address] PCP - General 12/16/17
== END 2024-06-28 13:00 | disposition home or self-care (01) ==
PROVIDERS: PCP Internal Medicine; Visit Provider Pain Medicine Interventional Pain Medicine
DX: F41.1 Generalized anxiety disorder (principal); G89.4 Chronic pain syndrome; M17.9 Osteoarthritis of knee, unspecified; M25.519 Pain in unspecified shoulder; M54.16 Radiculopathy, lumbar region; M54.17 Radiculopathy, lumbosacral region; M75.50 Bursitis of unspecified shoulder; Z51.81 Encounter for therapeutic drug level monitoring; Z79.899 Other long term (current) drug therapy; M17.11 Unilateral primary osteoarthritis, right knee; M25.562 Pain in left knee
CPT/HCPCS: 72100; 73560

== ENCOUNTER 2024-08-10 10:05 | Observation (INO) | payer BC, MEDICAID, SELFPAY ==
--- NOTE | ~2024-08-10 | XR_ITS ---
Exam: Abdomen 1V HISTORY: Left ureteral stone position COMPARISON: 06/04/2021. Reference is also made to a plain film evaluation of the lumbar spine dated (which demonstrated the stone still projecting over the lower pole of the left kidney). TECHNIQUE: Supine images of the abdomen FINDINGS: 6 mm calculus projects along the course of the mid left ureter, at the level of L4. This projects jus t over the pelvic brim (the wing of the ilium). Otherwise, nonspecific nonobstructive bowel gas pattern. IMPRESSION: 6 mm calculus projecting over the course of the mid left ureter, as detailed above. Reviewed, dictated and finalized at location [] IMPRESSION: 6 mm calculus projecting over the course of the mid left ureter, as detailed ab ove.
--- NOTE | ~2024-08-10 | XR_ITS ---
XR retrograde pyelo w/stent LT Ordering provider: Ishan Hernandez MD History: . LEFT STENT PLACEMENT . Comparison: None. FINDINGS/impression: Fluoroscopy time is 57 seconds. Cumulative dose is 27.32 mGy. Left retrograde with stent placement. Reviewed, dictated and finalized at location A.
--- OUTSIDE RECORDS SUMMARY | 2024-08-10 19:45 | XMS_ITS ---
Author Organization [facility] Address [address] [address] [place] [address] Care Team Providers Care Staff Genetic Counselor Name Role Phone Sebastien Rainey Unavailable [phone] Social History Sex Assigned At : Social History Observation Description Sex Assigned At Male Problems Problem Type SNOMED Code ICD Code Onset Dates Problem Status W/U Status Risk Notes Problem Atrioventricular septal defect, unspecified as to partial or complete (Q21.20) Active confirmed Encounters Encounter Location Date Provider Diagnosis [place] [facility] [address] [facility] [address] [place] [address] 03/02/2024 Sebastien Rainey Chronic kidney disea se, [...] Notes * Reynaldo MAGALLANESDOB:1980 (43 yo M)Acc No.[id number]:03/02/2024 Progress Notes Patient: Reynaldo PACHECO Provider: Kavitha VASQUEZ MD, F.A.C.P, F.A.S.N. :1980 A ge:43 Y S ex:Male Date:03/02/2024 [facility] Subjective: * Chief Complaints: * * [...] Treatment: * Billing Information: * Visit Code: 39559 Office Visit, Est Pt., Level 4. * Procedure Codes: * Electronic signature of Joi Rainey MD on 08/10/2024 at 07:45 PM CDT Sign off status: Pending * Provider: Kavitha VASQUEZ MD, Diann.RexP, F.A.S.N. Date: 03/02/2024 Generated for Printing/Faxing/eTransmitting on: 08/10/2024 07:45 PM CDT
--- OUTSIDE RECORDS SUMMARY | 2024-08-10 19:45 | XMS_ITS | Clinical Summary ---
Author Organization [facility] Address [address] [place] [address] Care Team Providers Care Hydramatic Specialist Name Role Phone Ken Fermin MD Primary Care Provider [phone] Source Comments [facility],non-owned Affiliates and Associated Physician Practices is amultiple site organization consisting of ambulatory clinics and hospital sitesin [place], [place], [place] and [place]. This disclosure is being madepursuant to the Care Everywhere program and may not contain all information available regarding this patient. Last updated 17.[facility] [employer] Allergies Active Allergy Reactions Criticality Noted Date [...] 4:09 PM CDT Height 175.3 cm (5' 9) 08/24/2018 4:09 PM CDT Body Mass Index [...] this topic Medical Devices Implanted Type Area Barista Device Identifier Shelf Expiration Date Model / Serial / Lot Stent Uret 6fr 26cm Pgtl Crv Tpr Tip Implanted:Qty: 1 on 11/04/2017 by Corrie Clarke DO at [facility] Left: [facility] 04/19/2020 [id number] / / Insurance MEDICAID - [place] [facility] Advance Directives * Full Code (Latest Code Status on File) Date Activated Date Inactivated Comments 08/15/2018 4:27 PM 08/16/2018 5:47 PM * Full Code Date Activated Date Inactivated Comments 11/04/2017 10:54 AM 11/04/2017 6:01 PM * Full Code Date Activated Date Inactivated Comments 11/02/2017 9:22 PM 11/03/2017 6:42 PM Care Teams Hydramatic Specialist Relationship Specialty Start Date End Date Ken Fermin MD [address] [facility] [address] [place] [address] PCP - General 12/16/17
--- OUTSIDE RECORDS SUMMARY | 2024-08-10 19:45 | XMS_ITS | Continuity of Care Document ---
Author Organization [facility] Address [address] [place] [address] [place] [address] Phone Care Team Providers Care Technical Internship Name Role Phone Nehemias Carter MD Unavailable [...] Providers Copied on Encounter OFFICE/OUTPA TIENT VISIT, [facility], [address], [place], [place], [address], [place] tel:[phone] [facility] headache1 (chief complaint) GERD1 (chief complaint) anxiety1 (chief complaint) insomnia1 (chief complaint) Generalized anxiety disorderOther insomniaHeadacheGER D w/o esophagitis 6 Raul [address] Cid[address], [place], [place], [address] , [place]. tel:[phone] Referring Provider: [address], [place], [place], [address]. tel:[phone] OFFICE/OUTPA TIENT VISIT, [facility], [address], [place], [place], [address], [place] tel:[phone] [facility] HTN1 (chief complaint) GERD1 (chief complaint) headache1 (chief complaint) anxiety1 (chief complaint) muscle pain1 (chief complaint) HeadacheGERD w/o esophagitisGenerali zed Anxiety DisorderOther insomnia 5 Raul [address] Cid[address], [place], [place], [address] , [place]. tel:[phone] Referring Provider: [address], [place], [place], [address]. tel:[phone] OFFICE/OUTPA TIENT VISIT, [facility], [address], [place], [place], [address], [place] tel:[phone] [facility] HTN1 (chief complaint) headache1 (chief complaint) GERD1 (chief complaint) anxiety (chief complaint) anxiety1 (chief complaint) Essential (primary) hypertensionTobacco useGERD without esophagitisOther insomnia 5 Raul [address] Cid[address], [place], [place], [address] , [place]. tel:[phone] Referring Provider: [address], [place], [place], [address]. tel:[phone] OFFICE/OUTPA TIENT VISIT, [facility], [address], [place], [place], [address], [place] tel:[phone] [facility] headache (chief complaint) HTN (chief complaint) MOod swing (chief complaint) insomnia (chief complaint) GERD (chief complaint) Dietary surveillance and counselingInsomnia, unspecifiedHeadache BP - High blood pressureMood disorder 5 Raul Del Cid[address], [place], [place], [address] , [place]. tel:[phone] Referring Provider: [address], [place], [place], [address]. tel:[phone] OFFICE/OUTPA TIENT VISIT, [facility], [address], [place], [place], [address], [place] tel:[phone] [facility] HTN (chief complaint) GERD (chief complaint) headache (chief complaint) mood disorder (chief complaint) back pain (chief complaint) HeadacheBP - High blood pressurePersonality disorder characterized by alternating episodes of mood swings from mild to moderate depression to episodes full of hyperactivity, excitement, elevated mood and high energyLumbago 5 Raul Del Cid[address], [place], [place], [address] , [place]. tel:[phone] Referring Provider: [address], [place], [place], [address]. tel:[phone] OFFICE/OUTPA TIENT VISIT, [facility], [address], [place], [place], [address], [place] tel:[phone] [facility] HTN (chief complaint) headache (chief complaint) GERD (chief complaint) depression (chief complaint) Dietary surveillance and counselingBP - High blood pressureHeadacheIns omnia, unspecifiedGERD - Gastro-esophageal reflux disease 5 Raul Walker [address], [place], [place], [address] , [place]. tel:[phone] Referring Provider: [address], [place], [place], [address]. tel:[phone] OFFICE/OUTPA TIENT VISIT, [facility], [address], [place], [place], [address], [place] tel:[phone] [facility] headache (chief complaint) HLP (chief complaint) HTN (chief complaint) INsomnia (chief complaint) HeadacheInsomnia, unspecifiedOther and unspecified hyperlipidemiaBlood pressure elevated 5 Raul [address] C[address], [place], [place], [address] , [place]. tel:[phone] Referring Provider: Neheimas Carter, [address], [place], [place], [address]. tel:[phone] OFFICE/OUTPA TIENT VISIT, [facility], [address], [place], [place], [address], [place] tel:[phone] [facility] headache (chief complaint) Headache 5 Raul [address] Cid[address], [place], [place], [address] , [place]. tel:[phone] Referring Provider: [address], [place], [place], [address]. tel:[phone] OFFICE/OUTPA TIENT VISIT, [facility], [address], [place], [place], [address], [place] tel:[phone] [facility] headache (chief complaint) TG (chief complaint) vitamin D (chief complaint) Insomnia (chief complaint) HeadacheInsomnia, OtherOther and unspecified hyperlipidemiaUnspe cified vitamin d deficiency 5 Raul Del Cid[address], [place], [place], [address] , [place]. tel:[phone] Referring Provider: [address], [place], [place], [address]. tel:[phone] PREV VISIT, NEW, AGE 18-39 [facility], [address], [place], [place], [address], [place] tel:[phone] [facility] Physical (chief complaint) Routine Medical ExamHeadacheMonocul ar exotropia with a patternInsomnia, OtherRoutine Medical Exam 5 Raul Del Cid[address], [place], [place], [address] , [place]. tel:[phone] Family History Family Member Type Diagnosis Age At Onset Mother Problem (finding) Coronary artery disease Brother Problem (finding) Diabetes mellitus Father Problem (finding) Diabetes mellitus Father Problem (finding) COPD Payers Payer name Insurance type Covered green party ID Authoriza tion(s) No Information Social History [...] Date Complaint History Of Prese nt Illness insomnia1 Pt has insomnia. Pt takes ambien qhs PRN and working well. Pt denies any snoring or any trouble with breathing at night. anxiety1 Pt has chornic a nxiety and depression and bipolar. Pt has mood swings. Pt states that lexapro works well. Pt still feels angry and also has mood swings. Pt denies any suicidal or homicidal thought, Pt denies any crying spells. Pt denies any feeling of hopelssness. Pt feels anxious GERD1 Donig ok with za ntac. Pt has not done upper GI yet. headache1 Pt has chronic h eadache. Pt feels throbbing headache Pt has headache 2-3 per week. Pt feels stressed out. His dad recently. Pt denies any head injury GERD1 Pt has not had a ny heartburn since taking zantac. Pt denies any abd pain or GERD symptmos HTN1 Pt has not been taking norvasc and his BP is borderline today. Pt denies any chest pain or headache headache1 Pt has chronic i ntermittent throbbing [...] thought. Pt denies any feeling of hopelessness. GERD Pertinent negati ves include back pain, constipation, diarrhea, dyspnea, fever, heartburn, hematuria, nausea, rash, vomiting, weight gain and weight loss. insomnia The patient pres ents for insomnia. Relevant history: a BMI of 26.69. The patient has the following risk factors for insomnia: use of alcohol. Additional information: Pt takes ambien and working ok. Pt denies any snoring or any AM fatigue or any trouble with breathing at night. MOod swing Pt has chronic a nxiety and depression and mood swings. Pt states that depakote and lexapro helps Pt denies any suicidal thought. Pt states that his mood is better and more stable now. HTN Pt taks norvasc. BP borderline today headache Additional infor mation: Pt has intermittent throbbing headache. Pt states that tylenol #4 works. Pt has headache 8 times last month. Pt still has not done mRI yet. back pain Additional infor mation: Pt c/o chronic bailateral flank pain and low back pain for at least 3-4 years. Pt denies any loss of bowel or bladder control. Pt denies any UTI symptmos. Pt states that he had history of renal stone which feels the same way. NO fever, chill. Noinjur. mood disorder Pt has mood swin g and irritability. Pt denies any suicidal or homicidal thought. Pt states that he just feels very irritable and he is angry at his employer. Pt states that he notices depakote and lexapro helped a little but not too much. headache Pertinent negati ves include vomiting. Additional information: Pt has chronic headache. Pt c/o throbbing headache with nausea. Pt has not done MRI yet. Pt states that he has headache about 3-4 per month. Pt still has not done MRI of brain yet. Pt denies any worsening hedache. GERD Pertinent negati ves include constipation, diarrhea, dyspnea, fever, hematuria, rash, vomiting, weight gain and weight loss.Additional information:Pt denies any further GERD symptoms. Pt denies any abd pain. Pt is off meds. Pt does not know the name of meds. HTN Pt takes norvasc . His BP is ok. Pt denies any chset pain depression The patient pres ents with anxious/fearful thoughts but denies fatigue. The depression is associated with headache. The patient denies any vomiting and weight gain. Additional information: Pt has depression and anxiety and anger issue and mood swings for long time. Pt denies any suicidal thought. Pt has crying spells and lack of motivation. GERD Associated sympt oms include heartburn. Pertinent negatives include constipation, diarrhea, dyspnea, fever, hematuria, rash, vomiting, weight gain and weight loss.Additional information:Pt has been having GERD symptoms. Pt is taking something from ER and working well but not sure what it is . Pt denies any GERd or abd pain. headache Pertinent negati ves include memory loss or vomiting. Additional information: Pt has chronic headache. Pt still has not had MRi done yet. Pt takes tylenol codeine PRN for headache. HTN Pt has persisten t HTN. Pt denies any chest pain INsomnia The patient pres ents for insomnia. Relevant history: a BMI of 25.25. The patient has the following risk factors for insomnia: use of alcohol. Additional information: Pt takes ambien 5 mg but not working anymore. HTN Pt has mildly HT N. Pt denies any chest pain or worse headache HLP Pt has elevated TG. Pt has been trying to cut down on carb and fat. headache Additional infor mation: Pt has chronic headache. Pt c.o piercing headache all over head. Pt c/o throbbing and nausea, vomiting and photophobia with headache Pt has not done MRI yet. Tylenol #4 works ok. headache Additional infor mation: Pt has chronic [...] Mental Status Date Cognitive Assessment Orientation - [place] ed to time, place, person, situation.
--- OUTSIDE RECORDS SUMMARY | 2024-08-10 19:45 | XMS_ITS ---
Author Organization [facility] Address [address] [place] [address] Care Team Providers Care Health And Safety Representative Name Role Phone Sebastien Rainey Unavailable [phone] Social History Sex Assigned At : Social History Observation Description Sex Assigned At Male Encounters Encounter Location Date Provider Diagnosis [place] [facility] [address] [facility] [address] [place] [address] 03/16/2024 Sebastien Rainey Plan Of Treatment No Information Progress Notes * Reynaldo MAGALLANESDOB:1980 (43 yo M)Acc No.[id number]:03/16/2024 Progress Notes Patient: Reynaldo PACHECO Provider: Kavitha VASQUEZ MD, Diann.Michael.C.P, F.A.S.N. :1980 A ge:43 Y S ex:Male Date:03/16/2024 Address:[address] [place] [address] [id number] Subjective: * Chief Complaints: * * Medical History: Objective: * Vitals: Assessment: Plan: * Treatment: * Billing Information: * Visit Code: * Procedure Codes: * Electronic signature of Joi Rainey MD on 08/10/2024 at 07:44 PM CDT Sign off status: Pending * Provider: Kavitha VASQUEZ MD, F.Michael.C.P, F.A.S.N. Date: 03/16/2024 Generated for Printing/Faxing/eTransmitting on: 08/10/2024 07:44 PM CDT
--- OUTSIDE RECORDS SUMMARY | 2024-08-10 19:45 | XMS_ITS | Patient Health Record ---
Author Organization [facility] Address [address] [facility] [address] [facility] [address] [place] [address] Care Team Providers Care Shipping Technician Name Role Phone Sebastien Rainey Unavailable [phone] Reason For Referral No Information Social History Sex Assigned At : Social History Observation Description Sex Assigned At Male Problems Problem Type SNOMED Code ICD Code Onset Dates Problem Status W/U Status Risk Notes Problem Chronic pain syndrome (720157784) Chronic pain syndrome (G89.4) Active confirmed Problem Essential hypertension (19006427) Essential (primary) hypertension (I10) Active confirmed Problem Chronic kidney disease stage 2 (469881646) Chronic kidney disease, stage 2 (mild) (N18.2) Active confirmed Problem Calculus of kidney (26403383) Calculus of kidney (N20.0) Active confirmed Problem Renal osteodystrophy (73284785) Renal osteodystrophy (N25.0) Active confirmed Problem Atrioventricular septal defect, unspecified as to partial or complete (Q21.20) Active confirmed Encounters Encounter Location Date Provider Diagnosis [place] [facility] [address] [place] [address] 02/26/2024 Sebastien Rainey Chronic kidney disea se, stage 2 (mild) N18.2 ; Calculus of kidney N20.0 ; Essential (primary) hypertension I10 ; Renal osteodystrophy N25.0 and Chronic pain syndrome G89.4 [place] [facility] [address] [address] 03/02/2024 Sebastien Rainey Chronic kidney disea se, stage 2 (mild) N18.2 ; Chronic pain syndrome G89.4 ; Renal osteodystrophy N25.0 ; Essential (primary) hypertension I10 ; Calculus of kidney N20.0 and Atrioventricular septal defect, unspecified as to partial or complete Q21.20 [facility] [address] [address] 03/02/2024 Sebastien Rainey [place] [facility] [address] [facility] [address] [place] [address] 03/02/2024 Sebastien Rainey [place] [facility] [address] [facility] [address] [place] [address] 03/02/2024 Sebastien Rainey Assessments Encounter Date Diagnosis (ICD Code) Assessment [...]
--- OUTSIDE RECORDS SUMMARY | 2024-08-10 19:45 | XMS_ITS ---
Author Organization [facility] Address [address] [address] [place] [address] Care Team Providers Care Body Fitter Name Role Phone Sebastien Rainey Unavailable [phone] Social History Sex Assigned At : Social History Observation Description Sex Assigned At Male Problems Problem Type SNOMED Code ICD Code Onset Dates Problem Status W/U Status Risk Notes Problem Chronic kidney disease stage 2 (261415139) Chronic kidney disease, stage 2 (mild) (N18.2) Active confirmed Problem Calculus of kidney (N20.0) Active confirmed Problem Essential hypertension (39632968) Essential (primary) hypertension (I10) Active confirmed Problem Renal osteodystrophy (68270108) Renal osteodystrophy (N25.0) Active confirmed Problem Chronic pain syndrome (930067784) Chronic pain syndrome (G89.4) Active confirmed Encounters Encounter Location Date Provider Diagnosis [place] [facility] [address] [facility] [address] [place] [address] 02/26/2024 Sebastien Rainey Chronic kidney disea se, [...] No Information Progress Notes * Tracy MAGALLANES:1980 (43 yo M)Acc No.[id number]:02/26/2024 Progress Notes Patient: Reynaldo PACHECO Provider: Kavitha VASQUEZ MD, F.Michael.C.P, F.A.S.N. :1980 A ge:43 Y S ex:Male Date:02/26/2024 Address:[address] [place], [place] [id number] Subjective: * Chief Complaints: * * Medical [...] Treatment: * Billing Information: * Visit Code: 38104 Office Visit, New Pt., Level 4. * Procedure Codes: * Electronic signature of Joi Rainey MD on 08/10/2024 at 07:45 PM CDT Sign off status: Pending * Provider: Kavitha VASQUEZ MD, F.Michael.C.P, F.A.S.N. Date: 0 02/26/2024 Generated for Printing/Faxing/eTransmitting on: 0 08/10/2024 07:45 PM CDT
--- OUTSIDE RECORDS SUMMARY | 2024-08-10 19:45 | XMS_ITS | Data Portability ---
Author Organization [place] [facility] Génie Numérique, Main Office Address [address] [place] [address] Care Team Providers Care Commercial Lending Relationship Manager Name Role Phone PAPA VYAS Primary Care Provider [phone] PAPA VYAS Referring Provider [phone] Assessment Encounter Date Assessment Date Assessment LastModified [...] pain as 7/10. 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 Review of systems per patient questionnaire [...] n of therapy for R knee 2023 [facility], [address] [place], [address], 4 10:31:06 physical therapist referral - eval and treat 2023 024 [facility], [address] [place], [address], 4 10:54:12 Procedures None recorded. Surgeries None recorded. Imaging MRI, knee, w/o contrast 2023 024 [facility] ([facility]), [address] [place], [address], 17:09:33 Medication Orders None recorded. Patient TargetsNo [...] contr ast No observ ation record ed. [address] [place], [address], 12/22/2023 22:06:03 02/16/19 25 02/17/2024 CT, abdom en + pelvi s, w/o contr ast No observ ation record ed. [address] [place], [address], 02/17/2024 14:50:55 02/18/19 25 02/19/2024 XR, abdom en No observ ation record ed. [address] [place], [address], 02/19/2024 11:07:34 Result Notes None recorded. Problems Name Problem SNOMED Code Status Onset Date Resolution Date Notes Provider Name and Address Organization Details Recorded Time Pain of right knee joint [id number] Active 2023 PATRICIA [place], [place] [facility] 10:17:29 Problem Notes None recorded. Medical Equipment None Reported. Allergies Allergen ID Allergen Name Allergen Category Reaction Reaction Severity Criticality Documentation Date Start Date Code Code System Note Provider Name and Address Organization Details Recorded Time 15292 tramadol medicatio n Not available Not available Not available 11/30/2023 67628 RxPATRICIA Jones, [facility] 4 10:13:22 79340 cortisone medicatio n lighthead edness Not available Not available 11/30/2023 2878 RxPATRICIA Jones, [facility] 4 10:13:47 Medications Name Sig Start Date Stop [...] Updated DateTime 11/30/2023 152.4 cm 41 kg/m2 10482.4 g Joy [facility] 11/30/2023 10:12:31 Date Recorded Body height Body mass index (BMI) Body weight Provider Name and Address Organization Details Last Updated DateTime 12/28/2023 152.4 cm 41 kg/m2 53139.4 g Joy Moran [facility] [employer] [facility] [employer] 12/28/2023 09:55:47 Social History Question Answer Notes LastModified by Organizat ion Details LastModified Time What Was The Date Of Your Most Recent Tobacco Screening? 11/30/2023 [email or web address] Information not available 11/30/2023 Sex: Unknown Functional Status Question Answer Note LastModified by Organization D etails LastModified Time Do you or have you ever used any other forms of tobacco or nicotine? Yes [email or web address] Information not available 11/30/2023 What is your level of alcohol consumption? None [email or web address] Information not available 11/30/2023 Mental Status None recorded. Family History Relationship Description Onset Age of this Age Resolved Age Notes LastModified by Organization Details LastModified Time Father History of malignant neoplasm [email or web address] Not available 2023 10:16:01 Father Diabetes mellitus [email or web address] Not available 2023 10:16:08 Medical History No medical history recorded. Past Encounters Encounter ID Performer Location Encounter Start Date Encounter Closed Date Diagnosis/Indication Diagnosis SNOMED-CT Code Diagnosis ICD10 Code Diagnosis Note [id number] Papa Smith MD [facility] [address] [address] 11/30/2023 09:56:16 11/30/2023 10:44:20 Pain of right knee joint 0753738203 17771 M25.100 [id number] Papa Smith MD [facility] [address] [place] [address] 12/28/2023 09:53:12 12/28/2023 10:18:01 Pain of right knee joint 3676856650 64098 M25.561 Health Concerns Section Related Observation LastModified by Organization Detai ls LastModified Time None Recorded Concern Status LastModified by Organization Details LastModified Time None Recorded Advance Directives Directive None Recorded Payers Insurance Date Sequence Insurance Name Policy Number Policy Beth Covered Member ID Beth Member ID Guarantor Name 03/17/2024 1 [facility] (MEDICAID REPLACEMENT - HMO) [id number] Reynaldo Magallanes [id number] Reynaldo Magallanes 11/30/2023 1 [facility] (PPO) [id number] Reynaldo Magallanes [id number] Reynaldo Magallanes 11/30/2023 2 [facility] (MEDICAID HMO) [id number] Reynaldo Magallanes [id number] Reynaldo Magallanes 11/30/2023 1 [facility] [employer]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
[2024-08-10 20:20] VITALS: BMI 29.7
--- NOTE | 2024-08-10 20:28 | ADMGEN ---
This patient, Reynaldo Magallanes, was admitted to 3 [facility] Surg Room 300-01. Patient/family oriented to hospital policies and general routines including ID bracelet, bed and alarms, visiting hours, pain management, procedures, bathroom and other care routines, personal items, smoking policy, room service/diet, and visiting hours. Information on how to activate the Rapid Response Team has been discussed. Patient/Family are encouraged to report perceived risks to care and to ask questions if they do not understand what they are told or what they should do.
[2024-08-10 20:46] LABS: Hematocrit 40.5 % (42.0-52.0); Hemoglobin 13.7 g/dL (14.0-18.0); Immature Granulocyte Percent A 0.1 % (0-0.5); Lymphocytes Absolute Auto 1.97 K/mm3 (0.9-3.2); Mean Corpuscular HGB Conc 33.8 g/dl (32-36); Mean Corpuscular Hemoglobin 30.7 pg (26-34); Mean Corpuscular Volume 90.8 fl (80-100); Nucleated Red Blood Cells Absolute Auto 0.000 K/mm3 (0.0-0.012); Nucleated Red Blood Cells Perc 0.0 % (0.0-0.2); Platelet Count Result 214 k/mm3 (150-375); Red Blood Count 4.46 M/mm3 (4.6-6.20); White Blood Count 7.2 K/mm3 (4.5-10.0)
[2024-08-10 20:50] VITALS: BP 153/98; PULSE 85; RESP 18; TEMP 36.2; O2SAT 98
[2024-08-10 20:58] LABS: Alanine Aminotransferase 60 U/L (6-50); Albumin Level 4.0 g/dL (3.5-5.1); Alkaline Phosphatase 98 U/L (38-126); Anion Gap 8 mmol/L (4-12); Aspartate Amino Transferase 42 U/L (17-59); Bilirubin,Total 0.4 mg/dL (0.2-1.3); Blood Urea Nitrogen 14 mg/dL (9-20); Calcium 9.2 mg/dL (8.4-10.2); Carbon Dioxide 30 mmol/L (22-30); Chloride 101 mmol/L (98-107); Estimated Glomerular Filt Rate 45; Glucose 96 mg/dL (65-110); Potassium 3.8 mmol/L (3.4-5.0); Sodium 139 mmol/L (137-145); Total Protein 6.8 g/dL (6.3-8.2)
--- NOTE | 2024-08-10 22:05 | P.HP_ITS ---
H&P: HPI History of Present Illness Date/Time: 08/10/24 22:05 Chief Complaint: Left back and flank pain Narrative: This is a very pleasant 43-year-old male patient who was accepted to [facility] as a transfer from [facility] for an obstructive ureterolithiasis on the left side for expert urological evaluation and management. Patient has history of multiple kidney stones status post multiple ureteroscopy 80s and stent placements, hypertension, GERD, bilateral knee osteoarthritis who had acute onset of pain at 4:00 a.m. this morning causing him to present to [facility] for evaluation. Their workup was performed that was remarkable for findings of blood in the urine and CT scan that showed a left ureteral obstructing stone with hydroureteronephrosis. The stone measures 8 mm. Patient without acute urinary tract infection or renal compromise. He last saw a urologist at [facility] multiple years ago but does not follow with them routinely. He reports that he passed a small stone at home last night and he did not want transfer to [place] so he opted for transfer to [place] for further urological management at this time. He denies any chest pain, dyspnea. He reports he did have some nausea and vomiting with onset of pain at 4:00 a.m. this morning. Review of Systems Review of Systems: All systems reviewed & are unremarkable except as noted in HPI and below PMFSH Past Medical History Medical History (Updated 08/10/24 @ 22:11 by DENIA Carranza) Chronic pain GERD (gastroesophageal reflux disease) Hydroureteronephrosis Claustrophobia Clavicle fracture Rotator cuff tear Essential hypertension Kidney stone Removed 2018 Depression Headache Heart burn Elevated liver enzymes Hyperlipidemia Family History Family History Sibling Diabetes mellitus Father Family history of lung cancer Mother Family history of malignant neoplasm of breast in first degree relative Social History Social History Smoking status: Current every day smoker Tobacco type: smokeless tobacco Smokeless tobacco user: chewing tobacco Alcohol intake: never Substance use: never Substance use type: does not use Do You Feel Safe in your Home?: Yes Lack of Transportation: No Lack of Food: Never True Current Housing: I Have Housing Concerned About Future Housing: No Difficulty Paying Gas/Electric Bills: No Difficulty Paying for Meds: No Currently Unemployed: No Education: High School Diploma/GED Difficulty w/ Childcare or Family Care: No Living arrangements: with friend(s) Gender identity (if verbalized by the patient): Male Spiritual care concerns: No Meds Home Medications and Allergies Home Medications ?Medication ?Instructions ?Recorded ?Confirmed ?Type hydrocodone 5 mg-acetaminophen 325 1 - 2 tablet PO Q6H PRN pain #30 06/28/21 08/10/24 Rx mg tablet tabs pantoprazole 40 mg tablet,delayed See Rx Instructions .Route 04/27/24 08/10/24 Rx release .COMPLEX #60 tabs diltiazem HCl 60 mg tablet 60 mg PO BID #180 tabs 07/15/24 08/10/24 Rx (Cardizem) hydrocodone 10 mg-acetaminophen 1 tablet PO Q4H PRN pain 08/10/24 08/10/24 History 325 mg tablet Allergies Allergy/AdvReac Type Severity Reaction Status Date / Time cortisone Allergy Intermediate Nausea and Verified 04/23/23 08:20 Vomiting Vital Signs Vital Signs - 24 hr 08/10/24 20:50 Temperature 97.1 F L Pulse Rate 85 Respiratory Rate 18 Blood Pressure 153/98 H Pulse Oximetry 98 Exam Const: General: comfortable and no acute distress HENMT: Face/Nose/Sinus: Normal nares present Mouth: Yes moist mucous membranes Eyes: General: appearance normal, both eyes and all related structures Sclera: sclerae normal Pupils: Equal, round and reactive pupils present EOM: EOMs intact bilaterally Neck: Neck: supple and no JVD Lymphatic: lymphadenopathy not noted Resp: Effort & Inspection: normal respiratory effort Auscultation: clear to auscultation bilaterally Cardio: Rate: regular rate Rhythm: regular rhythm Heart sounds: no gallops, no murmurs and no rubs GI: Inspection: non-distended GI Palp: Yes Soft to palpation and Yes Tenderness to palpation present (GI) (Left flank) Auscultation: normal bowel sounds Skin: General skin exam: normal color, no rashes or lesions noted and no erythema Lesions: no lesions noted Rashes: no rashes noted Wounds: no wounds Neuro: General: gait normal Speech: normal speech Motor exam (neuro): 5/5 motor strength present throughout and Normal motor muscle tone present throughout Sensory Exam: normal sensation Extrem: General: normal to inspection, no edema and no pedal edema Other: Fully and equally moves all extremities well without deficit Psych: Mental Status: mental status grossly normal Affect: normal affect H&P: Results Labs Labs: Short CBC 08/10/24 Range/Units 20:41 WBC 7.2 (4.5-10.0) K/mm3 Hgb 13.7 L (14.0-18.0) g/dL Hct 40.5 L (42.0-52.0) % Plt Count 214 (150-375) k/mm3 BMP 08/10/24 20:41 Sodium 139 Potassium 3.8 Chloride 101 Carbon Dioxide 30 BUN 14 Creatinine 1.67 H Glucose 96 Calcium 9.2 Liver Function 08/10/24 Range/Units 20:41 Total Bilirubin 0.4 (0.2-1.3) mg/dL AST 42 (17-59) U/L ALT 60 H (6-50) U/L Alkaline Phosphatase 98 (38-126) U/L Albumin 4.0 (3.5-5.1) g/dL Assessment and Plan Assessment and plan (1) Hydroureteronephrosis: Code(s): N13.30 - Unspecified hydronephrosis Status: Acute Assessment and Plan: * As evidence by CT scan from outside facility. * Repeat labs performed here showing normal wbc's. * Creatinine and BUN at 1.67 in 14 respectively. Patient's baseline creatinine is 1.1 * Awaiting repeat urine * Urology consulted * NPO after midnight * P.r.n. fentanyl 50 mcg IVP for pain q.4 hours * P.r.n. Zofran 4 mg IV push for nausea q.4 hours * P.r.n. Toradol q.6 hours IV push * Trend daily labs and vitals (2) Renal stone: Code(s): N20.0 - Calculus of kidney Status: Acute Assessment and Plan: * See 1. (3) Essential hypertension: Code(s): I10 - Essential (primary) hypertension Status: Acute Assessment and Plan: * Diltiazem 60 mg b.i.d. free ordered * Trend and monitor labs and vital signs (4) GERD (gastroesophageal reflux disease): Code(s): K21.9 - Gastro-esophageal reflux disease without esophagitis Status: Acute Assessment and Plan: * Continue PPI pantoprazole 40 mg daily (5) Chronic pain: Code(s): G89.29 - Other chronic pain Status: Chronic Assessment and Plan: * Secondary to chronic arthritic knees. * Hold home dose of [place] * See IV pain medication options and 1. Quality VTE Prophylaxis VTE prophylaxis: mechanical ordered Hospitalist MIPS Advance Care Plan I have confirmed that the patient's Advanced Care Plan is present, code status is documented, or surrogate decision maker is listed in patient medical record.: Yes Medication Reconciliation I have utilized all available resources to obtain, update and review the patients current medications (includes all prescriptions, OTC, herbals, cannabis, and nutritional supplements).: Yes
[2024-08-10] MEDS: PANTOPRAZOLE 40 MG TABLET BY MOUTH (22:35)
[2024-08-10] MEDS: TAMSULOSIN HCL 0.4 MG CAPSULE PO (22:35)
[2024-08-10] MEDS: SODIUM CHLORIDE 0.9% IV 1,000 ML 100 ML IV CONT (22:36)
[2024-08-10] MEDS: fentaNYL CITRATE INJ (*CRX) 100 MCG/2 ML VIAL 50 MCG IV PUSH (22:43)
[2024-08-10] MEDS: ONDANSETRON INJ 4 MG/2 ML VIAL IV PUSH (22:44)
[2024-08-11] VITALS (7 sets, daily range): BP systolic 114–146; BP diastolic 67–89; PULSE 70–87; RESP 12–18; TEMP 36.6–36.7; O2SAT 96–99
[2024-08-11 05:46] LABS: Hematocrit 40.5 % (42.0-52.0); Hemoglobin 13.7 g/dL (14.0-18.0); Immature Granulocyte Percent A 0.3 % (0-0.5); Lymphocytes Absolute Auto 1.94 K/mm3 (0.9-3.2); Mean Corpuscular HGB Conc 33.8 g/dl (32-36); Mean Corpuscular Hemoglobin 30.8 pg (26-34); Mean Corpuscular Volume 91.0 fl (80-100); Nucleated Red Blood Cells Absolute Auto 0.000 K/mm3 (0.0-0.012); Nucleated Red Blood Cells Perc 0.0 % (0.0-0.2); Platelet Count Result 221 k/mm3 (150-375); Red Blood Count 4.45 M/mm3 (4.6-6.20); White Blood Count 6.2 K/mm3 (4.5-10.0)
[2024-08-11 06:00] LABS: Alanine Aminotransferase 55 U/L (6-50); Albumin Level 3.8 g/dL (3.5-5.1); Alkaline Phosphatase 94 U/L (38-126); Anion Gap 5 mmol/L (4-12); Aspartate Amino Transferase 37 U/L (17-59); Bilirubin,Total 0.6 mg/dL (0.2-1.3); Blood Urea Nitrogen 15 mg/dL (9-20); Calcium 8.7 mg/dL (8.4-10.2); Carbon Dioxide 29 mmol/L (22-30); Chloride 103 mmol/L (98-107); Estimated Glomerular Filt Rate > 60; Glucose 98 mg/dL (65-110); Potassium 3.7 mmol/L (3.4-5.0); Sodium 137 mmol/L (137-145); Total Protein 6.6 g/dL (6.3-8.2)
--- NOTE | 2024-08-11 07:14 | P.CONUR_ITS ---
Assessment and Plan Assessment and plan (1) Left ureteral stone: Code(s): N20.1 - Calculus of ureter Status: Acute Assessment and Plan: * Cystoscopy, left ureteral stent placement today * Likely discharge this afternoon after today's procedure * Left ESWL [id number] Urology Consult Note HPI Date Seen: 08/11/24 Requesting Physician: Celeste Shen MD Primary Care Provider: Rivera Griggs DO Consult Narrative Narrative: Reynaldo Magallanes is a 43 year old male known to our practice another urologist with a history of recurrent urolithiasis. Yesterday he developed acute renal colic and was seen in the emergency department in [facility] where CT scan demonstrated obstructing 8 mm left proximal / mid ureteral stone. He was transferred here her overnight hydration and analgesics were administered. After discussion of options we plan to place a left ureteral stent today with a subsequent ESWL down the road. Review of Systems 2 Cardiovascular: Cardiovascular: Denies chest pain, Denies lightheadedness, Denies palpitations and Denies dyspnea Respiratory: Respiratory: Denies dyspnea Gastrointestinal: Gastrointestinal: Denies diarrhea, Denies nausea and Denies vomiting Genitourinary: Genitourinary: Denies hematuria and Denies dysuria Endocrine: Endocrine: Denies palpitations [facility] Past Medical History Medical History (Updated 08/11/24 @ 07:16 by Ishan Hernandez MD) Chronic pain GERD (gastroesophageal reflux disease) Hydroureteronephrosis Claustrophobia Clavicle fracture Rotator cuff tear Essential hypertension Kidney stone Removed 2018 Depression Headache Heart burn Elevated liver enzymes Hyperlipidemia Family History Family History Sibling Diabetes mellitus Father Family history of lung cancer Mother Family history of malignant neoplasm of breast in first degree relative Social History Social History Smoking status: Current every day smoker Tobacco type: smokeless tobacco Smokeless tobacco user: chewing tobacco Alcohol intake: never Substance use: never Substance use type: does not use Do You Feel Safe in your Home?: Yes Lack of Transportation: No Lack of Food: Never True Current Housing: I Have Housing Concerned About Future Housing: No Difficulty Paying Gas/Electric Bills: No Difficulty Paying for Meds: No Currently Unemployed: No Education: High School Diploma/GED Difficulty w/ Childcare or Family Care: No Living arrangements: with friend(s) Gender identity (if verbalized by the patient): Male Spiritual care concerns: No Meds Home Medications and Allergies Home Medications ?Medication ?Instructions ?Recorded ?Confirmed ?Type hydrocodone 5 mg-acetaminophen 325 1 - 2 tablet PO Q6H PRN pain #30 06/28/21 08/10/24 Rx mg tablet tabs pantoprazole 40 mg tablet,delayed See Rx Instructions .Route 04/27/24 08/10/24 Rx release .COMPLEX #60 tabs diltiazem HCl 60 mg tablet 60 mg PO BID #180 tabs 07/15/24 08/10/24 Rx (Cardizem) hydrocodone 10 mg-acetaminophen 1 tablet PO Q4H PRN pain 08/10/24 08/10/24 History 325 mg tablet Allergies Allergy/AdvReac Type Severity Reaction Status Date / Time cortisone Allergy Intermediate Nausea and Verified 04/23/23 08:20 Vomiting Vital Signs Vital Signs - 24 hr 08/10/24 20:50 08/10/24 22:09 08/11/24 06:00 Temperature 97.1 F L 97.8 F Pulse Rate 85 77 Respiratory Rate 18 18 Blood Pressure 153/98 H 133/76 Pulse Oximetry 98 98 Oxygen Delivery Room Air Exam 2 Const: General: no acute distress Resp: Effort & Inspection: normal respiratory effort GI: Inspection: non-distended GI Palp: No abdominal tenderness and No Guarding due to palpation present (GI) Auscultation: normal bowel sounds Results Labs 08/11/24 05:19 08/11/24 05:19 Labs: Short CBC 08/10/24 08/11/24 Range/Units 20:41 05:19 WBC 7.2 6.2 (4.5-10.0) K/mm3 Hgb 13.7 L 13.7 L (14.0-18.0) g/dL Hct 40.5 L 40.5 L (42.0-52.0) % Plt Count 214 221 (150-375) k/mm3 BMP 08/10/24 08/11/24 20:41 05:19 Sodium 139 137 Potassium 3.8 3.7 Chloride 101 103 Carbon Dioxide 30 29 BUN 14 15 Creatinine 1.67 H 1.14 Glucose 96 98 Calcium 9.2 8.7 Liver Function 08/10/24 08/11/24 Range/Units 20:41 05:19 Total Bilirubin 0.4 0.6 (0.2-1.3) mg/dL AST 42 37 (17-59) U/L ALT 60 H 55 H (6-50) U/L Alkaline Phosphatase 98 94 (38-126) U/L Albumin 4.0 3.8 (3.5-5.1) g/dL
--- NOTE | 2024-08-11 07:17 | WPDHPUPDATE1 ---
History and Physical Update Update Date/Time: 08/11/24 07:17 History and Physical has been reviewed, including an updated exam of the patient. There are NO changes in the patient's condition. Risks, benefits, and alternatives have been discussed and questions answered. Patient agrees to proceed with procedure.
--- NOTE | 2024-08-11 07:21 | WPDHPUPDATE1 ---
History and Physical Update Update Date/Time: 08/11/24 07:21 History and Physical has been reviewed, including an updated exam of the patient. There are NO changes in the patient's condition. Risks, benefits, and alternatives have been discussed and questions answered. Patient agrees to proceed with procedure.
[2024-08-11] MEDS: fentaNYL CITRATE INJ (*CRX) 100 MCG/2 ML VIAL 50 MCG IV PUSH (08:20)
[2024-08-11] MEDS: ONDANSETRON INJ 4 MG/2 ML VIAL IV PUSH (08:20)
[2024-08-11] MEDS: PANTOPRAZOLE 40 MG TABLET BY MOUTH (08:20)
[2024-08-11] MEDS: ACETAMINOPHEN 325 MG TABLET 650 MG PO (10:53)
--- OUTSIDE RECORDS SUMMARY | 2024-08-11 12:09 | XMS_ITS ---
Author Organization [facility] Address [address] [address] [place] [address] Care Team Providers Care Admissions Evaluator Name Role Phone Redd Sebastien Unavailable [phone] Social History Sex Assigned At : Social History Observation Description Sex Assigned At Male Problems Problem Type SNOMED Code ICD Code Onset Dates Problem Status W/U Status Risk Notes Problem Chronic kidney disease stage 2 (008248191) Chronic kidney disease, stage 2 (mild) (N18.2) Active confirmed Problem Calculus of kidney (80062647) Calculus of kidney (N20.0) Active confirmed Problem Essential hypertension (70492807) Essential (primary) hypertension (I10) Active confirmed Problem Renal osteodystrophy (35464440) Renal osteodystrophy (N25.0) Active confirmed Problem Chronic pain syndrome (407554009) Chronic pain syndrome (G89.4) Active confirmed Encounters Encounter Location Date Provider Diagnosis [place] [facility] [address] [facility] [address] [place] [address] 02/26/2024 Sebastien Rainey Chronic kidney disea se, [...] Notes * Tracy MAGALLANES:1980 (43 yo M)Acc No.[id number]:02/26/2024 Progress Notes Patient: Reynaldo PACHECO Provider: Kavitha VASQUEZ MD, F.A.C.P, F.A.S.N. :1980 A ge:43 Y S ex:Male Date:02/26/2024 Address:[address] [place], [place] [id number] Subjective: * Chief Complaints: * * Medical [...] Treatment: * Billing Information: * Visit Code: 29969 Office Visit, New Pt., Level 4. * Procedure Codes: * Electronic signature of Joi Rainey MD on 08/11/2024 at 12:09 PM CDT Sign off status: Pending * Provider: Kavitha VASQUEZ MD, F.A.C.P, F.A.S.N. Date: 0 02/26/2024 Generated for Printing/Faxing/eTransmitting on: 0 08/11/2024 12:09 PM CDT
--- OUTSIDE RECORDS SUMMARY | 2024-08-11 12:09 | XMS_ITS ---
Author Organization [facility] Address [address] [place] [address] Care Team Providers Care Brick Offbearer Name Role Phone Sebastien Rainey Unavailable [phone] Social History Sex Assigned At : Social History Observation Description Sex Assigned At Male Encounters Encounter Location Date Provider Diagnosis [place] [facility] [address] [facility] [address] [place] [address] 03/16/2024 Sebastien Rainey Plan Of Treatment No Information Progress Notes * Reynaldo MAGALLANESDOB:1980 (43 yo M)Acc No.[id number]:03/16/2024 Progress Notes Patient: Reynaldo PACHECO Provider: Kavitha VASQUEZ MD, Diann.Michael.C.P, F.A.S.N. :1980 A ge:43 Y S ex:Male Date:03/16/2024 Address:[address] [place], [place] [id number] Subjective: * Chief Complaints: * * Medical History: Objective: * Vitals: Assessment: Plan: * Treatment: * Billing Information: * Visit Code: * Procedure Codes: * Electronic signature of Joi Rainey MD on 08/11/2024 at 12:08 PM CDT Sign off status: Pending * Provider: Kavitha VASQUEZ MD, F.Michael.C.P, F.A.S.N. Date: 03/16/2024 Generated for Printing/Faxing/eTransmitting on: 08/11/2024 12:08 PM CDT
--- OUTSIDE RECORDS SUMMARY | 2024-08-11 12:09 | XMS_ITS | Patient Health Record ---
Author Organization [facility] Address [address] [facility] [address] [facility] [address] [place] [address] Care Team Providers Care Leadership Intern Name Role Phone Sebastien Rainey Unavailable [phone] Reason For Referral No Information Social History Sex Assigned At : Social History Observation Description Sex Assigned At Male Problems Problem Type SNOMED Code ICD Code Onset Dates Problem Status W/U Status Risk Notes Problem Chronic pain syndrome (134844631) Chronic pain syndrome (G89.4) Active confirmed Problem Essential hypertension (08950266) Essential (primary) hypertension (I10) Active confirmed Problem Chronic kidney disease stage 2 (206710609) Chronic kidney disease, stage 2 (mild) (N18.2) Active confirmed Problem Calculus of kidney (69664665) Calculus of kidney (N20.0) Active confirmed Problem Renal osteodystrophy (11690751) Renal osteodystrophy (N25.0) Active confirmed Problem Atrioventricular septal defect, unspecified as to partial or complete (Q21.20) Active confirmed Encounters Encounter Location Date Provider Diagnosis [facility] [address] [place] [address] 02/26/2024 Sebastien Rainey Chronic kidney disea se, stage 2 (mild) N18.2 ; Calculus of kidney N20.0 ; Essential (primary) hypertension I10 ; Renal osteodystrophy N25.0 and Chronic pain syndrome G89.4 [facility] [address] [address] 03/02/2024 Sebastien Rainey Chronic kidney disea se, stage 2 (mild) N18.2 ; Chronic pain syndrome G89.4 ; Renal osteodystrophy N25.0 ; Essential (primary) hypertension I10 ; Calculus of kidney N20.0 and Atrioventricular septal defect, unspecified as to partial or complete Q21.20 [facility] [address] [place] [address] 03/02/2024 Sebastien Rainey [facility] [address] [facility] [address] [place] [address] 03/02/2024 Sebastien Rainey [facility] [address] [facility] [address] [place] [address] 03/02/2024 Sebastien Rainey Assessments Encounter Date Diagnosis [...]
--- OUTSIDE RECORDS SUMMARY | 2024-08-11 12:09 | XMS_ITS | Continuity of Care Document ---
Author Organization [facility] Address [address] [place] [address] [place] [address] Phone Care Team Providers Care Material Dispatcher Name Role Phone Nehemias Carter MD Unavailable Unavailable Allergies, Adverse Reactions, Alerts Substance Reaction Status Criticality No Known Allergies Active No Inform ation Medications Medication Instructions Dosage Effective Dates (start - stop) Status Comments Valium 5 mg tablet take 1 tablet by oral route 2 times every day 5 MG - Active avoid driving or operate machines Tylenol-Codeine #4 300 mg-60 mg tablet take 1 tablet by oral route every 6 hours as needed - Active PRN for headache, 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 Ambien 10 mg tablet take 1 tablet by oral route every day at bedtime 10 MG - Active Zantac 300 mg tablet take 1 tablet by oral route every day at bedtime - Active Lexapro 20 mg tablet take 1 tablet [...] Providers Copied on Encounter OFFICE/OUTPA TIENT VISIT, [facility], [address], [place], [place], [address], [place] tel:[phone] [facility] headache1 (chief complaint) GERD1 (chief complaint) anxiety1 (chief complaint) insomnia1 (chief complaint) Generalized anxiety disorderOther insomniaHeadacheGER D w/o esophagitis 6 Raul [address], [place], [place], [address] , [place]. tel:[phone] Referring Provider: [address], [place], [place], [address]. tel:[phone] OFFICE/OUTPA TIENT VISIT, [facility], [address], [place], [place], [address], [place] tel:[phone] [facility] HTN1 (chief complaint) GERD1 (chief complaint) headache1 (chief complaint) anxiety1 (chief complaint) muscle pain1 (chief complaint) HeadacheGERD w/o esophagitisGenerali zed Anxiety DisorderOther insomnia 5 Raul Del Cid. [address], [place], [place], [address] , [place]. tel:[phone] Referring Provider: [address], [place], [place], [address]. tel:[phone] OFFICE/OUTPA TIENT VISIT, [facility], [address], [place], [place], [address], [place] tel:[phone] [facility] HTN1 (chief complaint) headache1 (chief complaint) GERD1 (chief complaint) anxiety (chief complaint) anxiety1 (chief complaint) Essential (primary) hypertensionTobacco useGERD without esophagitisOther insomnia 5 Raul Del Cid[address], [place], [place], [address] , [place]. tel:[phone] Referring Provider: [address], [place], [place], [address]. tel:[phone] OFFICE/OUTPA TIENT VISIT, [facility], [address], [place], [place], [address], [place] tel:[phone] [facility] headache (chief complaint) HTN (chief complaint) MOod swing (chief complaint) insomnia (chief complaint) GERD (chief complaint) Dietary surveillance and counselingInsomnia, unspecifiedHeadache BP - High blood pressureMood disorder 5 Raul Del Cid[address], [place], [place], [address] , [place]. tel:[phone] Referring Provider: [address], [place], [place], [address]. tel:[phone] OFFICE/OUTPA TIENT VISIT, [facility], [address], [place], [place], [address], [place] tel:[phone] [facility] HTN (chief complaint) GERD (chief complaint) headache (chief complaint) mood disorder (chief complaint) back pain (chief complaint) HeadacheBP - High blood pressurePersonality disorder characterized by alternating episodes of mood swings from mild to moderate depression to episodes full of hyperactivity, excitement, elevated mood and high energyLumbago 5 Raul Del Cid[address], [place], [place], [address] , [place]. tel:[phone] Referring Provider: [address], [place], [place], [address]. tel:[phone] OFFICE/OUTPA TIENT VISIT, [facility], [address], [place], [place], [address], [place] tel:[phone] [facility] HTN (chief complaint) headache (chief complaint) GERD (chief complaint) depression (chief complaint) Dietary surveillance and counselingBP - High blood pressureHeadacheIns omnia, unspecifiedGERD - Gastro-esophageal reflux disease 5 Raul Walker [address], [place], [place], [address] , [place]. tel:[phone] Referring Provider: [address], [place], [place], [address]. tel:[phone] OFFICE/OUTPA TIENT VISIT, [facility], [address], [place], [place], [address], [place] tel:[phone] [facility] headache (chief complaint) HLP (chief complaint) HTN (chief complaint) INsomnia (chief complaint) HeadacheInsomnia, unspecifiedOther and unspecified hyperlipidemiaBlood pressure elevated 5 Raul Del Cid[address], [place], [place], [address] , [place]. tel:[phone] Referring Provider: Nehemias Carter, [address], [place], [place], [address]. tel:[phone] OFFICE/OUTPA TIENT VISIT, [facility], [address], [place], [place], [address], [place] tel:[phone] [facility] headache (chief complaint) Headache 5 Raul [address]id[address], [place], [place], [address] , [place]. tel:[phone] Referring Provider: [address], [place], [place], [address]. tel:[phone] OFFICE/OUTPA TIENT VISIT, [facility], [address], [place], [place], [address], [place] tel:[phone] [facility] headache (chief complaint) TG (chief complaint) vitamin D (chief complaint) Insomnia (chief complaint) HeadacheInsomnia, OtherOther and unspecified hyperlipidemiaUnspe cified vitamin d deficiency 5 Raul Del Cid. [address], [place], [place], [address] , [place]. tel:[phone] Referring Provider: [address], [place], [place], [address]. tel:[phone] PREV VISIT, NEW, AGE 18-39 [facility], [address], [place], [place], [address], [place] tel:[phone] [facility] Physical (chief complaint) Routine Medical ExamHeadacheMonocul ar exotropia with a patternInsomnia, OtherRoutine Medical Exam 5 Raul Del Cid. [address], [place], [place], [address] , [place]. tel:[phone] Family History Family Member Type Diagnosis Age At Onset Mother Problem (finding) Coronary artery disease Brother Problem (finding) Diabetes mellitus Father Problem (finding) Diabetes mellitus Father Problem (finding) COPD Payers Payer name Insurance type Covered republican ID Authoriza tion(s) No Information Social History [...] Mental Status Date Cognitive Assessment Orientation - [place] ed to time, place, person, situation.
--- OUTSIDE RECORDS SUMMARY | 2024-08-11 12:10 | XMS_ITS | Clinical Summary ---
Author Organization [facility] Address [address] [place] [place] [address] Care Team Providers Care Attendance Officer Name Role Phone Ken Fermin MD Primary Care Provider [phone] Source Comments [facility],non-owned Affiliates and Associated Physician Practices is amultiple site organization consisting of ambulatory clinics and hospital sitesin [place], [place], [place] and [place]. This disclosure is being madepursuant to the Care Everywhere program and may not contain all information available regarding this patient. Last updated 17.[facility] [email or web address] Allergies Active Allergy Reactions Criticality Noted Date [...] this topic Medical Devices Implanted Type Area Day Haul Youth Supervisor Device Identifier Shelf Expiration Date Model / Serial / Lot Stent Uret 6fr 26cm Pgtl Crv Tpr Tip Implanted:Qty: 1 on 11/04/2017 by Corrie Clarke DO at [facility] Left: [facility] 04/19/2020 [id number] / / Insurance MEDICAID - [place] [facility] Advance Directives * Full Code (Latest Code Status on File) Date Activated Date Inactivated Comments 08/15/2018 4:27 PM 08/16/2018 5:47 PM * Full Code Date Activated Date Inactivated Comments 11/04/2017 10:54 AM 11/04/2017 6:01 PM * Full Code Date Activated Date Inactivated Comments 11/02/2017 9:22 PM 11/03/2017 6:42 PM Care Teams Attendance Officer Relationship Specialty Start Date End Date Ken Fermin MD [address] [facility] [address] [place] [address] PCP - General 12/16/17
--- OUTSIDE RECORDS SUMMARY | 2024-08-11 12:10 | XMS_ITS ---
Author Organization [facility] Address [address] [address] [place] [address] Care Team Providers Care Care Aid Name Role Phone Sebastien Rainey Unavailable [phone] Social History Sex Assigned At : Social History Observation Description Sex Assigned At Male Problems Problem Type SNOMED Code ICD Code Onset Dates Problem Status W/U Status Risk Notes Problem Atrioventricular septal defect, unspecified as to partial or complete (Q21.20) Active confirmed Encounters Encounter Location Date Provider Diagnosis [facility] [address] [facility] [address] [place] [address] 03/02/2024 Sebastien Rainey Chronic kidney disea se, [...] Notes * Reynaldo MAGALLANESDOB:1980 (43 yo M)Acc No.[id number]:03/02/2024 Progress Notes Patient: Reynaldo PACHECO Provider: Kavitha VASQUEZ MD, F.A.C.P, F.A.S.N. :1980 A ge:43 Y S ex:Male Date:03/02/2024 [facility] Subjective: * Chief Complaints: * [...] Treatment: * Billing Information: * Visit Code: 38092 Office Visit, Est Pt., Level 4. * Procedure Codes: * Electronic signature of Joi Rainey MD on 08/11/2024 at 12:09 PM CDT Sign off status: Pending * Provider: Kavitha VASQUEZ MD, Diann.RexP, F.A.S.N. Date: 03/02/2024 Generated for Printing/Faxing/eTransmitting on: 08/11/2024 12:09 PM CDT
--- NOTE | 2024-08-11 13:33 | WPDANESEPPF ---
Anes - Initial Pre Proc Eval Procedure: Operation Date: 08/11/24 14:30 Proposed Procedures p Cystoscopy, Left Stent Placement - Ishan Hernandez MD Date/Time: 08/11/24 13:33 Surgeon: Celeste Shen MD Pre Op Diagnosis: Renal Stone Patient Data Age: 43 Gender: M Height: 1.75 m Weight: 91.4 kg Last Vital Signs Temp 36.6 C 08/11/24 06:00 Pulse 77 08/11/24 06:00 Resp 18 08/11/24 06:00 BP 133/76 08/11/24 06:00 Pulse Ox 98 08/11/24 06:00 O2 Del Method Room Air 08/11/24 08:00 Allergies Allergy/AdvReac Type Severity Reaction Status Date / Time cortisone Allergy Intermediate Nausea and Verified 04/23/23 08:20 Vomiting Home Medications ?Medication ?Instructions ?Recorded ?Confirmed ?Type hydrocodone 5 mg-acetaminophen 325 1 - 2 tablet PO Q6H PRN pain #30 06/28/21 08/10/24 Rx mg tablet tabs pantoprazole 40 mg tablet,delayed See Rx Instructions .Route 04/27/24 08/10/24 Rx release .COMPLEX #60 tabs diltiazem HCl 60 mg tablet 60 mg PO BID #180 tabs 07/15/24 08/10/24 Rx (Cardizem) hydrocodone 10 mg-acetaminophen 1 tablet PO Q4H PRN pain 08/10/24 08/10/24 History 325 mg tablet Laboratory Tests 08/10/24 08/11/24 20:41 05:19 WBC 7.2 K/mm3 6.2 K/mm3 (4.5-10.0) (4.5-10.0) RBC 4.46 L M/mm3 4.45 L M/mm3 (4.6-6.20) (4.6-6.20) Hgb 13.7 L g/dL 13.7 L g/dL (14.0-18.0) (14.0-18.0) Hct 40.5 L % 40.5 L % (42.0-52.0) (42.0-52.0) MCV 90.8 fl 91.0 fl (80-100) (80-100) MCH 30.7 pg 30.8 pg (26-34) (26-34) MCHC 33.8 g/dl 33.8 g/dl (32-36) (32-36) RDW 12.6 % 12.5 % (11.5-14.5) (11.5-14.5) Plt Count 214 k/mm3 221 k/mm3 (150-375) (150-375) MPV 8.4 fl 8.8 fl (7.4-10.4) (7.4-10.4) Immature Gran % (Auto) 0.1 % 0.3 % (0-0.5) (0-0.5) Neut % (Auto) 60.3 % 55.5 % (45.5-73.1) (45.5-73.1) Lymph % (Auto) 27.4 % 31.1 % (18.3-44.2) (18.3-44.2) [place] % (Auto) 9.0 H % 9.9 H % (2.6-8.5) (2.6-8.5) Eos % (Auto) 2.5 % 2.4 % (0-4.4) (0-4.4) Baso % (Auto) 0.7 % 0.8 % (0.2-1.2) (0.2-1.2) Lymph # (Auto) 1.97 K/mm3 1.94 K/mm3 (0.9-3.2) (0.9-3.2) [place] # (Auto) 0.7 H K/mm3 0.6 K/mm3 (0.1-0.6) (0.1-0.6) Eos # (Auto) 0.2 K/mm3 0.2 K/mm3 (0-0.3) (0-0.3) Baso # (Auto) 0.1 K/mm3 0.1 K/mm3 (0.0-0.1) (0.0-0.1) Abs Immat Gran (auto) 0.01 K/mm3 0.02 K/mm3 (0.00-0.031) (0.00-0.031) Absolute Neuts (auto) 4.3 K/mm3 3.5 K/mm3 (1.3-6.7) (1.3-6.7) Absolute Nucleated RBC 0.000 K/mm3 0.000 K/mm3 (0.0-0.012) (0.0-0.012) Nucleated RBC % 0.0 % 0.0 % (0.0-0.2) (0.0-0.2) Sodium 139 mmol/L 137 mmol/L (137-145) (137-145) Potassium 3.8 mmol/L 3.7 mmol/L (3.4-5.0) (3.4-5.0) Chloride 101 mmol/L 103 mmol/L (98-107) (98-107) Carbon Dioxide 30 mmol/L 29 mmol/L (22-30) (22-30) Anion Gap 8 mmol/L 5 mmol/L (4-12) (4-12) BUN 14 mg/dL 15 mg/dL (9-20) (9-20) Creatinine 1.67 H mg/dL 1.14 mg/dL (0.7-1.3) (0.7-1.3) Estim Creat Clear Calc Not Reportable Not Reportable Estimated GFR 45 L > 60 (59 - ) (59 - ) Glucose 96 mg/dL 98 mg/dL (65-110) (65-110) Calcium 9.2 mg/dL 8.7 mg/dL (8.4-10.2) (8.4-10.2) Total Bilirubin 0.4 mg/dL 0.6 mg/dL (0.2-1.3) (0.2-1.3) AST 42 U/L 37 U/L (17-59) (17-59) ALT 60 H U/L 55 H U/L (6-50) (6-50) Alkaline Phosphatase 98 U/L 94 U/L (38-126) (38-126) Total Protein 6.8 g/dL 6.6 g/dL (6.3-8.2) (6.3-8.2) Albumin 4.0 g/dL 3.8 g/dL (3.5-5.1) (3.5-5.1) Patient hx anesthesia problems: none Family hx anesthesia problems: none Results Review: All pre-operative results and documents have been reviewed as part of the pre-operative evaluation. [facility] Past Medical History Medical History Chronic pain GERD (gastroesophageal reflux disease) Hydroureteronephrosis Claustrophobia Clavicle fracture Rotator cuff tear Essential hypertension Kidney stone Removed 2019 Depression Headache Heart burn Elevated liver enzymes Hyperlipidemia Family History Family History Sibling Diabetes mellitus Father Family history of lung cancer Mother Family history of malignant neoplasm of breast in first degree relative Social History Social History Smoking status: Current every day smoker Tobacco type: smokeless tobacco Smokeless tobacco user: chewing tobacco Alcohol intake: never Substance use: never Substance use type: does not use Do You Feel Safe in your Home?: Yes Lack of Transportation: No Lack of Food: Never True Current Housing: I Have Housing Concerned About Future Housing: No Difficulty Paying Gas/Electric Bills: No Difficulty Paying for Meds: No Currently Unemployed: No Education: High School Diploma/GED Difficulty w/ Childcare or Family Care: No Living arrangements: with friend(s) Gender identity (if verbalized by the patient): Male Spiritual care concerns: No Anes - Eval Final PreProcedure Day of Procedure 08/11/24 13:33 Patient weight: overweight Heart: regular rate and rhythm Lungs: clear to auscultation Airway: Mallampati scale class II Neurological: alert and oriented Last oral intake: >/= 8 hours ASA classification: III Emergent: no Anesthetic plan: proceed Anesthesia type and monitoring: general LMA and standard monitoring Results Review: All pre-operative results and documents have been reviewed as part of the pre-operative evaluation. Informed Consent: The patient's anesthetic plan and its attendant risks and benefits were discussed with the patient/family/POA. Questions were solicited and answers provided to the satisfaction of the patient/family/POA.
[2024-08-11] MEDS: LIDOCAINE 2% GEL UROJET 10 ML PKG MUCOUS MEM (13:50)
--- NOTE | 2024-08-11 13:59 | W.PM.PROC2 ---
Procedure Note - Detailed Date of Procedure 08/11/24 Pre-op Diagnosis Left ureteral stone Post-op Diagnosis Same Procedure Performed Cystoscopy, left retrograde pyelography, ureteral stent placement Surgeon Ishan Hernandez MD Anesthesia General Description of Procedure patient is brought to the operative suite was prepped and draped in routine sterile fashion while in dorsal lithotomy position after the uneventful induction of a general LMA anesthetic. Cystoscopy was undertaken with a 19 F rigid cystoscope. He has no urethral stricture but notable prostatic hyperplasia with a small to moderate size median lobe. The bladder shows slight trabeculation without cellule or diverticular formation. There is no intravesical foreign body or neoplasm. Has a single orthotopic ureteral orifice bilaterally. An angiographic catheter was used to obtain a left retrograde pyelogram to ensure appropriate positioning of a ureteral stent. Filling defect the left mid ureter at L3/L4 outlines his stone. A 4.8 F variable length stent is positioned with the proximal coil in his renal pelvis and distal coil is bladder. Scopes/wires were removed and was taken recovery room good condition. Drains No Packing No Pathology None sent Complications No immediate complications Condition Stable
[2024-08-11] MEDS: LACTATED RINGERS 1,000 ML 30 ML IV CONT (14:00)
--- NOTE | 2024-08-11 14:34 | PM.DS ---
DS: Admitting Diagnosis Discharge Date 08/11/2024 Admitting Diagnosis Left ureteral stone DS: Discharge Diagnosis Discharge Diagnosis (1) Hydroureteronephrosis: Code(s): N13.30 - Unspecified hydronephrosis Status: Acute (2) Renal stone: Code(s): N20.0 - Calculus of kidney Status: Acute (3) Essential hypertension: Code(s): I10 - Essential (primary) hypertension Status: Acute (4) GERD (gastroesophageal reflux disease): Code(s): K21.9 - Gastro-esophageal reflux disease without esophagitis Status: Acute (5) Chronic pain: Code(s): G89.29 - Other chronic pain Status: Chronic DS: Summary Hospital Course Reason for hospitalization: left ureter stone Hospital Course: Admission: Patient was a 43-year-old male patient who was accepted to [facility] as a transfer from [facility] for an obstructive ureterolithiasis on the left side for expert urological evaluation and management. Patient has history of multiple kidney stones status post multiple ureteroscopy 80s and stent placements, hypertension, GERD, bilateral knee osteoarthritis who had acute onset of pain at 4:00 a.m. this morning causing him to present to [facility] for evaluation. Their workup was performed that was remarkable for findings of blood in the urine and CT scan that showed a left ureteral obstructing stone with hydroureteronephrosis. The stone measures 8 mm. Patient without acute urinary tract infection or renal compromise. He reported that he passed a small stone at home last night and he did not want transfer to [place] so he opted for transfer to [place] for further urological management at this time. Hospital Course: patient was then admitted to the medical unit for further evaluation and treatment of left ureter stone was started on IV fluids and pain management with consult to Urology. Patient underwent a cystoscopy left retrograde pyelography with ureteral stent placement tolerating procedure well. Labs vitals reviewed and stable. patient was then discharged to home plans to follow up with Urology outpatient for ESWL in about 2 weeks. Patient in no acute distress at time of discharge discharged home ambulatory with pain management and encouraged to increase oral hydration to assist stone extraction. Status at Discharge Functional status at discharge: independent ambulation Overall status at discharge: patient is back to baseline Time Spent with Patient Time attestation: Total time spent providing and/or coordinating discharge services: Time spent: Less than 30 minutes Exam Const: General: comfortable and no acute distress HENMT: Face/Nose/Sinus: Normal nares present Mouth: Yes moist mucous membranes Eyes: General: appearance normal, both eyes and all related structures Sclera: sclerae normal Pupils: Equal, round and reactive pupils present EOM: EOMs intact bilaterally Neck: Neck: supple and no JVD Lymphatic: lymphadenopathy not noted Resp: Effort & Inspection: normal respiratory effort Auscultation: clear to auscultation bilaterally Cardio: Rate: regular rate Rhythm: regular rhythm Heart sounds: no gallops, no murmurs and no rubs GI: Inspection: non-distended Auscultation: normal bowel sounds Skin: General skin exam: normal color, no rashes or lesions noted, no erythema, No lesion and No rashes Lesions: no lesions noted Rashes: no rashes noted Wounds: no wounds Neuro: General: gait normal Cranial nerves: Yes Equal, round and reactive pupils present Speech: normal speech Motor exam (neuro): 5/5 motor strength present throughout and Normal motor muscle tone present throughout Sensory Exam: normal sensation Extrem: General: normal to inspection, no edema and no pedal edema Other: Fully and equally moves all extremities well without deficit Psych: Mental Status: mental status grossly normal Affect: normal affect DS: Data Data Completed and Pending Labs on day of discharge: Labs from last 24 hours 08/11/24 08/10/24 05:19 20:41 WBC 6.2 7.2 RBC 4.45 L 4.46 L Hgb 13.7 L 13.7 L Hct 40.5 L 40.5 L MCV 91.0 90.8 MCH 30.8 30.7 MCHC 33.8 33.8 RDW 12.5 12.6 Plt Count 221 214 MPV 8.8 8.4 Immature Gran % (Auto) 0.3 0.1 Neut % (Auto) 55.5 60.3 Lymph % (Auto) 31.1 27.4 [place] % (Auto) 9.9 H 9.0 H Eos % (Auto) 2.4 2.5 Baso % (Auto) 0.8 0.7 Lymph # (Auto) 1.94 1.97 [place] # (Auto) 0.6 0.7 H Eos # (Auto) 0.2 0.2 Baso # (Auto) 0.1 0.1 Abs Immat Gran (auto) 0.02 0.01 Absolute Neuts (auto) 3.5 4.3 Absolute Nucleated RBC 0.000 0.000 Nucleated RBC % 0.0 0.0 Sodium 137 139 Potassium 3.7 3.8 Chloride 103 101 Carbon Dioxide 29 30 Anion Gap 5 8 BUN 15 14 Creatinine 1.14 1.67 H Estim Creat Clear Calc Not Reportable Not Reportable Estimated GFR > 60 45 L Glucose 98 96 Calcium 8.7 9.2 Total Bilirubin 0.6 0.4 AST 37 42 ALT 55 H 60 H Alkaline Phosphatase 94 98 Total Protein 6.6 6.8 Albumin 3.8 4.0 Discharge Plan Discharge Attending physician on discharge: Celeste Shen Consulting providers: Trixie Carter; Ishan Hernandez Discharging Clinician: Ishan Hernandez Patient Disposition: Home Activity: other - see discharge instructions Diet: other - see discharge instructions Discharge Instructions: 1) Activity: no driving or important decisions x24 hours. 2) Diet: resume your normal, pre-admission diet. 3) Follow-up: my office will contact pt. to arrange follow-up for ESWL. Patient Instructions: Antibiotic Form Patient Language: Yemeni Stand Alone Forms: General Discharge Information Follow-up/Referrals: Ishan Hernandez MD [Physician] - Discharge Medications: New hydrocodone-acetaminophen 5-325 mg tablet 1 - 2 tablet PO Q6H PRN (Reason: pain) Qty: 20 0RF oxycodone 5 mg tablet 5 mg PO Q8H PRN (Reason: pain) Qty: 10 0RF tamsulosin 0.4 mg capsule 0.4 mg PO DAILY PRN (Reason: stent irritation) Qty: 30 0RF Rx Instructions: may take one tab daily as needed for stent irritation Continued hydrocodone-acetaminophen 5-325 mg tablet 1 - 2 tablet PO Q6H PRN (Reason: pain) Qty: 30 0RF hydrocodone-acetaminophen 10-325 mg tablet 1 tablet PO Q4H PRN (Reason: pain) pantoprazole 40 mg tablet,delayed release (DR/EC) See Rx Instructions .ROUTE .COMPLEX Qty: 60 5RF Dose Instruction: TAKE 1 TABLET BY MOUTH TWICE DAILY Rx Instructions: TAKE 1 TABLET BY MOUTH TWICE DAILY diltiazem HCl [Cardizem] 60 mg tablet 60 mg PO BID Qty: 180 0RF Date of admission: 08/10/24 10:05 Primary Care Provider: Rivera Griggs Admitting Provider: Celeste Shen Attending physician on admission: Celeste Shen Condition: Stable Quality VTE Prophylaxis VTE prophylaxis: mechanical ordered -Patient's previous records reviewed on admission -ER notes reviewed in detail on admission -discussed all findings and current treatment plan with patient/Family/POA -Consultations reviewed for recommendations -Patient's disposition for safe discharge discussed with case sealer Dictation performed by [employer] direct speech recognition software, therefore offset press operator helper variants and typographical errors may occur. Hospitalist MIPS Heart Failure (Exclusion) Patient has history of Heart Transplant or Left Ventricular Assistive Device?: No IF YES, STOP HERE Heart Failure (Qualifier) Patient has current or prior documentation of LVEF less than or equal to 40%, or mod/servere depressed LVSF?: No IF NO, STOP HERE
--- NOTE | 2024-08-11 16:45 | PC.NURSE ---
according to hospitalist note pt ok to discharge. According to urologist note, pt can d/c if tolorating po well, ok with hospitalist, and comfortable. at this time pt is comfortable, tolorating po well, and according to hospitalist note, is ok to dc. iv was removed from pt, discharge instructions were given to patient, and he stated he was ready to leave.
== END 2024-08-11 17:00 | disposition home or self-care (01) ==
PROVIDERS: Nurse Practitioner Adult Health; Urology; Admitting Provider Internal Medicine; PCP Internal Medicine; Visit Provider Internal Medicine
PROC: (CPT 52352; principal; 2024-08-11 14:30)
DX: N13.2 Hydronephrosis with renal and ureteral calculous obstruction (principal); I10 Essential (primary) hypertension; K21.9 Gastro-esophageal reflux disease without esophagitis; G89.29 Other chronic pain; M17.0 Bilateral primary osteoarthritis of knee; F17.220 Nicotine dependence, chewing tobacco, uncomplicated; E78.5 Hyperlipidemia, unspecified; Z87.442 Personal history of urinary calculi; Z79.899 Other long term (current) drug therapy
CPT/HCPCS: 52332; 36415; 74018; 74420; 80053; 85025; 96374; 96375; A9270; C1758; C1769; C2617; G0378; J0690; J1100; J2003; J2250; J2405; J2704; J3010; J7030; J7120; Q9966

== ENCOUNTER 2024-09-05 08:15 | Outpatient (CLI) | payer BC, MEDICAID, SELFPAY ==
--- OUTSIDE RECORDS SUMMARY | 2024-09-05 08:24 | XMS_ITS | Data Portability ---
Author Organization [facility], Main Office Address [address] [place] [address] Assessment Encounter Date Assessment Date Assessment LastModified [...] pain as 7/10. 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 Review of systems per patient questionnaire Physical [...] n of therapy for R knee 2023 [facility], [address] [place], [address], 4 10:31:06 physical therapist referral - eval and treat 2023 024 [facility], [address] [place], [address], 4 10:54:12 Procedures None recorded. Surgeries None recorded. Imaging MRI, knee, w/o contrast 2023 024 [facility] [address] [place], [address], 17:09:33 Medication Orders None recorded. Patient TargetsNo targets recorded. Patient InstructionsNo instructions recorded. Reason for Referral Physical Therapist Referral for Pain of right knee joint eval and treat Referring Physician: Rivera Smith, Orthopedic Surgery, Encounter Date: 11/30/2023 Physical Therapist Referral for Pain of right knee joint R knee continuation of therapy for R knee Referring Physician: Rivera Smith, Orthopedic Surgery, Encounter Date: 12/28/2023 Results Created Date Observation Date Name Description Value Unit Range Abnormal Flag Note LastModifiedBy Organization Detail LastModifiedTime 11/25/1911/15/2023 XR, knee, 3 view No observ ation record ed. [email or web address] Not Available 11/09 10:43:19 12/22/1912/22/2023 MRI, knee, w/o contr ast No observ ation record ed. [email or web address] [facility] [address] [place], [address], 12/22/2023 22:06:03 02/16/19 25 02/17/2024 CT, abdom en + pelvi s, w/o contr ast No observ ation [facility] ed. [email or web address] [address] [place], [address], 02/17/2024 14:50:55 02/18/19 25 02/19/2024 XR, abdom en No observ ation record ed. [address] [place], [address], 02/19/2024 11:07:34 Result Notes None recorded. Problems Name Problem SNOMED Code Status Onset Date Resolution Date Notes Provider Name and Address Organization Details Recorded Time Pain of right knee joint 608675381176112 Active 2023 PATRICIA Easton [employer] 10:17:29 Problem Notes None recorded. Medical Equipment None Reported. Allergies Allergen ID Allergen Name Allergen Category Reaction Reaction Severity Criticality Documentation Date Start Date Code Code System Note Provider Name and Address Organization Details Recorded Time 56865 tramadol medicatio n Not available Not available Not available 11/30/2023 51835 RxNorm PATRICIA Easton [facility] 4 10:13:22 40004 cortisone medicatio n lighthead edness Not available Not available 11/30/2023 2878 [facility] 10:13:47 Medications Name Sig Start Date Stop [...] height Body mass index (BMI) Body weight Pain severity - 0-10 verbal numeric rating [Score] - Reported Provider Name and Address Organization Details Last Updated DateTime 11/30/2023 152.4 cm 41 kg/m2 83988.4 g 7 Joy Moran [facility] 11/30/2023 10:12:46 Date Recorded Body height Body mass index (BMI) Body weight Pain severity - 0-10 verbal numeric rating [Score] - Reported Provider Name and Address Organization Details Last Updated DateTime 12/28/2023 152.4 cm 41 kg/m2 24672.4 g 6 Joy Moran [facility] [employer] 12/28/2023 09:55:50 Social History Question Answer Notes LastModified by Organizat ion Details LastModified Time What Was The Date Of Your Most Recent Tobacco Screening? 11/30/2023 Information not available 11/30/2023 Sex: Unknown Functional Status Question Answer Note LastModified by Organization D etails LastModified Time Do you or have you ever used any other forms of tobacco or nicotine? Yes chew [email or web address] Information not available 11/30/2023 What is your level of alcohol consumption? None [email or web address] Information not available 11/30/2023 Mental Status None recorded. Family History Relationship Description Onset Age of this Age Resolved Age Notes LastModified by Organization Details LastModified Time Father History of malignant neoplasm [email or web address] Not available 2023 10:16:01 Father Diabetes mellitus [email or web address] Not available 2023 10:16:08 Medical History No medical history recorded. Past Encounters Encounter ID Performer Location Encounter Start Date Encounter Closed Date Diagnosis/Indication Diagnosis SNOMED-CT Code Diagnosis ICD10 Code Diagnosis Note [id number] Rivera Smith MD [facility] [address] [address] 11/30/2023 09:56:16 11/30/2023 10:44:20 Pain of right knee joint 0048228066 08158 M25.647 [id number] Rivera Smith MD [facility] [address] [address] 12/28/2023 09:53:12 12/28/2023 10:18:01 Pain of right knee joint 8051371872 27681 M25.561 Health Concerns Section Related Observation LastModified by Organization Detai ls LastModified Time None Recorded Concern Status LastModified by Organization Details LastModified Time None Recorded Advance Directives Directive None Recorded Payers Insurance Date Sequence Insurance Name Policy Number Policy Beth Covered Member ID Beth Member ID Guarantor Name 08/24/2024 1 [place] [facility] (MEDICAID REPLACEMENT - HMO) [id number] Reynaldo Magallanes [id number] Reynaldo Magallanes 08/26/2024 1 [place] [id number] Reynaldo Magallanes [id number] Reynaldo Magallanes 11/30/2023 2 [facility] (MEDICAID HMO) [id number] Reynaldo Magallanes [id number] Reynaldo Magallanes 11/30/2023 1 [facility] 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
--- OUTSIDE RECORDS SUMMARY | 2024-09-05 08:24 | XMS_ITS ---
Author Organization [facility] Address [address] [place] [address] Care Team Providers Care Field Irrigation Worker Name Role Phone Sebastien Rainey Unavailable [phone] Social History Sex Assigned At : Social History Observation Description Sex Assigned At Male Encounters Encounter Location Date Provider Diagnosis [facility] [address] [facility] [address] [place] [address] 03/16/2024 Sebastien Rainey Plan Of Treatment No Information Progress Notes * Reynaldo MAGALLANESDOB:1980 (43 yo M)Acc No.[id number]:03/16/2024 Progress Notes Patient: Reynaldo PACHECO Provider: Kavitha VASQUEZ MD, Diann.Michael.C.P, F.A.S.N. :1980 A ge:43 Y S ex:Male Date:03/16/2024 Address:[address] [place] [address] [facility] Subjective: * Chief Complaints: * * Medical History: Objective: * Vitals: Assessment: Plan: * Treatment: * Billing Information: * Visit Code: * Procedure Codes: * Electronic signature of Joi Rainey MD on 09/05/2024 at 08:24 AM CDT Sign off status: Pending * Provider: Kavitha VASQUEZ MD, F.Michael.C.P, F.A.S.N. Date: 03/16/2024 Generated for Printing/Faxing/eTransmitting on: 09/05/2024 08:24 AM CDT
--- OUTSIDE RECORDS SUMMARY | 2024-09-05 08:25 | XMS_ITS ---
Author Organization [facility] Address [address] [place] [address] [place] [address] Care Team Providers Care Fine Jewelry Sales Associate Name Role Phone Redd Sebastien Unavailable [phone] Social History Sex Assigned At : Social History Observation Description Sex Assigned At Male Problems Problem Type SNOMED Code ICD Code Onset Dates Problem Status W/U Status Risk Notes Problem Chronic kidney disease stage 2 (932554412) Chronic kidney disease, stage 2 (mild) (N18.2) Active confirmed Problem Calculus of kidney (65831852) Calculus of kidney (N20.0) Active confirmed Problem Essential hypertension (94794398) Essential (primary) hypertension (I10) Active confirmed Problem Renal osteodystrophy (07372136) Renal osteodystrophy (N25.0) Active confirmed Problem Chronic pain syndrome (531008698) Chronic pain syndrome (G89.4) Active confirmed Encounters Encounter Location Date Provider Diagnosis [place] [facility] [address] [facility] [address] [place] [address] 02/26/2024 Sebastien Rainey Chronic kidney disea se, [...] Notes * Tracy MAGALLANES:1980 (43 yo M)Acc No.[id number]:02/26/2024 Progress Notes Patient: Reynaldo PACHECO Provider: Kavitha VASQUEZ MD, F.Michael.C.P, F.A.S.N. :1980 A ge:43 Y S ex:Male Date:02/26/2024 Address:[address] [place], [place] [id number] Subjective: * Chief Complaints: * * Medical [...] Treatment: * Billing Information: * Visit Code: 74376 Office Visit, New Pt., Level 4. * Procedure Codes: * Electronic signature of Joi Rainey MD on 09/05/2024 at 08:24 AM CDT Sign off status: Pending * Provider: Kavitha VASQUEZ MD, F.A.C.P, F.A.S.N. Date: 0 02/26/2024 Generated for Printing/Faxing/eTransmitting on: 0 09/05/2024 08:24 AM CDT
--- OUTSIDE RECORDS SUMMARY | 2024-09-05 08:25 | XMS_ITS | Clinical Summary ---
Author Organization [facility] Address [address] [place] [address] Care Team Providers Care Sprinkler Installer Name Role Phone Ken Fermin MD Primary Care Provider [phone] Source Comments [facility],non-owned Affiliates and Associated Physician Practices is amultiple site organization consisting of ambulatory clinics and hospital sitesin [place], [place], [place] and [place]. This disclosure is being madepursuant to the Care Everywhere program and may not contain all information available regarding this patient. Last updated 17.[facility] [employer] Allergies Active Allergy Reactions Criticality Noted Date [...] of 3 - 19+ 3-dose series) 09/28/1998 HPV VACCINE (1 - 3-dose SCDM series) 09/28/2006 COVID-19 VACCINE (1 - 2023-2 5 season) 2023 DEPRESSION SCREENING 02/10/2024 INFLUENZA VACCINE (#1) 2024 ZOSTER VACCINE (1 of 2) 09/28/2029 [...] this topic Medical Devices Implanted Type Area Aircraft Layout Worker Device Identifier Shelf Expiration Date Model / Serial / Lot Stent Uret 6fr 26cm Pgtl Crv Tpr Tip Implanted:Qty: 1 on 11/04/2017 by Corrie Clarke DO at [facility] Left: [facility] 04/19/2020 [id number] / / Insurance Advance Directives * Full Code (Latest Code Status on File) Date Activated Date Inactivated Comments 08/15/2018 4:27 PM 08/16/2018 5:47 PM * Full Code Date Activated Date Inactivated Comments 11/04/2017 10:54 AM 11/04/2017 6:01 PM * Full Code Date Activated Date Inactivated Comments 11/02/2017 9:22 PM 11/03/2017 6:42 PM Care Teams Sprinkler Installer Relationship Specialty Start Date End Date Ken Fermin MD [address] [facility] [address] [place] [address] PCP - General 12/16/17
--- OUTSIDE RECORDS SUMMARY | 2024-09-05 08:25 | XMS_ITS | Patient Health Record ---
Author Organization [facility] Address [address] [facility] [address] [facility] [address] [place] [address] Care Team Providers Care Automotive Wholesale Parts Advisor Name Role Phone Sebastien Rainey Unavailable [phone] Reason For Referral No Information Social History Sex Assigned At : Social History Observation Description Sex Assigned At Male Problems Problem Type SNOMED Code ICD Code Onset Dates Problem Status W/U Status Risk Notes Problem Chronic pain syndrome (120022756) Chronic pain syndrome (G89.4) Active confirmed Problem Essential hypertension (73702460) Essential (primary) hypertension (I10) Active confirmed Problem Chronic kidney disease stage 2 (176191994) Chronic kidney disease, stage 2 (mild) (N18.2) Active confirmed Problem Calculus of kidney (86752490) Calculus of kidney (N20.0) Active confirmed Problem Renal osteodystrophy (16379743) Renal osteodystrophy (N25.0) Active confirmed Problem Atrioventricular septal defect, unspecified as to partial or complete (Q21.20) Active confirmed Encounters Encounter Location Date Provider Diagnosis [place] [facility] [address] [place] [address] 02/26/2024 Sebastien Rainey Chronic kidney disea se, stage 2 (mild) N18.2 ; Calculus of kidney N20.0 ; Essential (primary) hypertension I10 ; Renal osteodystrophy N25.0 and Chronic pain syndrome G89.4 [place] [facility] [address] [address] 03/02/2024 Sebastien Rainey Chronic kidney disea se, stage 2 (mild) N18.2 ; Chronic pain syndrome G89.4 ; Renal osteodystrophy N25.0 ; Essential (primary) hypertension I10 ; Calculus of kidney N20.0 and Atrioventricular septal defect, unspecified as to partial or complete Q21.20 [facility] [place] [facility] [address] [address] 03/02/2024 Sebastien Rainey [facility] [place] [facility] [address] [facility] [address] [place] [address] 03/02/2024 Sebastien Rainey [place] [facility] [address] [facility] [address] [place] [address] 03/02/2024 Sebastien Rainey Assessments Encounter Date Diagnosis [...]
--- OUTSIDE RECORDS SUMMARY | 2024-09-05 08:25 | XMS_ITS ---
Author Organization [facility] Address [address] [address] [place] [address] Care Team Providers Care Diabetes Trainer Name Role Phone Sebastien Rainey Unavailable [phone] Social History Sex Assigned At : Social History Observation Description Sex Assigned At Male Problems Problem Type SNOMED Code ICD Code Onset Dates Problem Status W/U Status Risk Notes Problem Atrioventricular septal defect, unspecified as to partial or complete (Q21.20) Active confirmed Encounters Encounter Location Date Provider Diagnosis [place] [facility] [address] [facility] [address] [place] [address] 03/02/2024 Sebastien Rainey Chronic kidney disea se, [...] Notes * Reynaldo MAGALLANESDOB:1980 (43 yo M)Acc No.[id number]:03/02/2024 Progress Notes Patient: Reynaldo PACHECO Provider: Kavitha VASQUEZ MD, F.A.C.P, F.A.S.N. :1980 A ge:43 Y S ex:Male Date:03/02/2024 [facility] Subjective: * Chief Complaints: * * [...] Treatment: * Billing Information: * Visit Code: 83604 Office Visit, Est Pt., Level 4. * Procedure Codes: * Electronic signature of Joi Rainey MD on 09/05/2024 at 08:25 AM CDT Sign off status: Pending * Provider: Kavitha VASQUEZ MD, Diann.RexP, F.A.S.N. Date: 03/02/2024 Generated for Printing/Faxing/eTransmitting on: 09/05/2024 08:25 AM CDT
--- OUTSIDE RECORDS SUMMARY | 2024-09-05 08:25 | XMS_ITS | Continuity of Care Document ---
Author Organization [facility] Address [address] [place] [address] [place] [address] Phone Care Team Providers Care Anode Worker Name Role Phone Nehemias Carter MD Unavailable [...] Providers Copied on Encounter OFFICE/OUTPA TIENT VISIT, [facility] ([facility], [address], [place], [place], [address], [place] tel:[phone] [facility] headache1 (chief complaint) GERD1 (chief complaint) anxiety1 (chief complaint) insomnia1 (chief complaint) Generalized anxiety disorderOther insomniaHeadacheGER D w/o esophagitis 6 Raul Del Cid. [address], [place], [place], [address] , [place]. tel:[phone] Referring Provider: [address], [place], [place], [address]. tel:[phone] OFFICE/OUTPA TIENT VISIT, [facility] ([facility], [address], [place], [place], [address], [place] tel:[phone] [facility] HTN1 (chief complaint) GERD1 (chief complaint) headache1 (chief complaint) anxiety1 (chief complaint) muscle pain1 (chief complaint) HeadacheGERD w/o esophagitisGenerali zed Anxiety DisorderOther insomnia 5 Raul Del Cid[address], [place], [place], [address] , [place]. tel:[phone] Referring Provider: [address], [place], [place], [address]. tel:[phone] OFFICE/OUTPA TIENT VISIT, [facility] ([facility], [address], [place], [place], [address], [place] tel:[phone] [facility] HTN1 (chief complaint) headache1 (chief complaint) GERD1 (chief complaint) anxiety (chief complaint) anxiety1 (chief complaint) Essential (primary) hypertensionTobacco useGERD without esophagitisOther insomnia 5 Raul Del Cid[address], [place], [place], [address] , [place]. tel:[phone] Referring Provider: [address], [place], [place], [address]. tel:[phone] OFFICE/OUTPA TIENT VISIT, [facility] ([facility], [address], [place], [place], [address], [place] tel:[phone] [facility] headache (chief complaint) HTN (chief complaint) MOod swing (chief complaint) insomnia (chief complaint) GERD (chief complaint) Dietary surveillance and counselingInsomnia, unspecifiedHeadache BP - High blood pressureMood disorder 5 Raul Del Cid[address], [place], [place], [address] , [place]. tel:[phone] Referring Provider: [address], [place], [place], [address]. tel:[phone] OFFICE/OUTPA TIENT VISIT, [facility] ([facility], [address], [place], [place], [address], [place] tel:[phone] [facility] HTN (chief complaint) GERD (chief complaint) headache (chief complaint) mood disorder (chief complaint) back pain (chief complaint) HeadacheBP - High blood pressurePersonality disorder characterized by alternating episodes of mood swings from mild to moderate depression to episodes full of hyperactivity, excitement, elevated mood and high energyLumbago 5 Raul Del Cid. [address], [place], [place], [address] , [place]. tel:[phone] Referring Provider: [address], [place], [place], [address]. tel:[phone] OFFICE/OUTPA TIENT VISIT, [facility] ([facility], [address], [place], [place], [address], [place] tel:[phone] [facility] HTN (chief complaint) headache (chief complaint) GERD (chief complaint) depression (chief complaint) Dietary surveillance and counselingBP - High blood pressureHeadacheIns omnia, unspecifiedGERD - Gastro-esophageal reflux disease 5 Raul Walker [address], [place], [place], [address] , [place]. tel:[phone] Referring Provider: [address], [place], [place], [address]. tel:[phone] OFFICE/OUTPA TIENT VISIT, [facility] ([facility], [address], [place], [place], [address], [place] tel:[phone] [facility] headache (chief complaint) HLP (chief complaint) HTN (chief complaint) INsomnia (chief complaint) HeadacheInsomnia, unspecifiedOther and unspecified hyperlipidemiaBlood pressure elevated 5 Raul [address] Cid[address], [place], [place], [address] , [place]. tel:[phone] Referring Provider: Nehemias Carter, [address], [place], [place], [address]. tel:[phone] OFFICE/OUTPA TIENT VISIT, [facility] ([facility], [address], [place], [address], [place] tel:[phone] [facility] headache (chief complaint) Headache 5 Raul [address] Cid[address], [place], [place], [address] , [place]. tel:[phone] Referring Provider: [address], [place], [place], [address]. tel:[phone] OFFICE/OUTPA TIENT VISIT, [facility] ([facility], [address], [place], [address], [place] tel:[phone] [facility] headache (chief complaint) TG (chief complaint) vitamin D (chief complaint) Insomnia (chief complaint) HeadacheInsomnia, OtherOther and unspecified hyperlipidemiaUnspe cified vitamin d deficiency 5 Raul Del Cid. [address], [place], [place], [address] , [place]. tel:[phone] Referring Provider: [address], [place], [place], [address]. tel:[phone] PREV VISIT, NEW, AGE 18-39 [facility], [address], [place], [place], [address], [place] tel:[phone] [facility] Physical (chief complaint) Routine Medical ExamHeadacheMonocul ar exotropia with a patternInsomnia, OtherRoutine Medical Exam 5 Raul Del Cid. [address], [place], [place], [address] , [place]. tel:[phone] Family History Family Member Type Diagnosis Age [...] Mental Status Date Cognitive Assessment Orientation - [place] ed to time, place, person, situation.
--- NOTE | 2024-09-05 08:30 | ECG_ITS ---
Test Date: 2024-09-05 08:42:46 Measurements Intervals [place] Rate: 89 P: 24 MN: 165 QRS: 26 QRSD: 105 T: 26 QT: 381 QTc: 466 Interpretive Statements SINUS RHYTHM NONSPECIFIC T-WAVE ABNORMALITY No previous ECG available for comparison Electronically Signed On 09-05-2024 12:42:54 CDT by Sebastian Barrera M.D.
[2024-09-05 09:12] LABS: INR 0.9; Partial Thromboplastin Time 25.3 Seconds (22.3-36.8); Prothrombin Time 12.4 Seconds (11.1-14.7)
== END 2024-09-05 08:16 | disposition home or self-care (01) ==
PROVIDERS: PCP Internal Medicine; Visit Provider Urology
DX: Z01.818 Encounter for other preprocedural examination (principal); N20.1 Calculus of ureter; R94.31 Abnormal electrocardiogram [ECG] [EKG]; Z72.0 Tobacco use
CPT/HCPCS: 36415; 85610; 85730; 87086; 93005

== ENCOUNTER 2024-09-09 01:19 | Day surgery (SDC) | payer BC, MEDICAID, SELFPAY ==
--- NOTE | 2024-08-31 09:30 | PC.NURSE ---
Report to the Outpatient Waiting Room, entrance under the green pavilion located off [facility], at time _0830_ on date 09/09/24_. Planned Procedure Time: _1030_.? Time changes happen often and if your time is changed the preop area will call you the afternoon before. - You and your visitor will be asked to self-screen and do not enter if you have any COVID symptoms. Please call surgeon if you need to reschedule. - A mask is optional within the hospital at this time. Patients may have clear liquids (water, carbonated beverages, clear teas, apple juice) until 3 hours prior to surgery with a maximum of 20 ounces. - No food from midnight until time of surgery and no smoking, or chewing tobacco (or any form of nicotine). No chewing gum, candy or mints. - Infants may have breast milk until 4 hours before surgery, infant formula 6 hours prior to surgery. - Children will be allowed to drink immediately following surgery.? If applicable, please bring a bottle or sippy cup to assist with drinking. Juice, water, soda, and popsicles are readily available.? For infants on formula, please bring formula the day of surgery.? Pacifiers are allowed. Take only the following medications with a SIP of water on the morning of surgery: _DILTIAZEM, TAMSULOSIN AND PAIN MEDICATION IF NEEDED DO NOT STOP ANY OF YOUR OTHER PRESCRIPTION MEDICATIONS PRIOR TO SURGERY EXCEPT THE FOLLOWING Hold all vitamins and supplements for 3 days per anesthesiologist. Medications to discontinue per physician Date to take last dose Please no make-up, nail urdu, hairspray, perfume, deodorant, or body powder the day of surgery.? No jewelry (including any body piercings) or valuables the day of surgery, leave them at home.? Please take a shower or bath the night before, or the morning of, surgery with an antibacterial soap.? Wear comfortable, loose fitting clothing.? Children are encouraged to wear pajamas. - Jewelry must be removed prior to entering the operating room.? Rings and piercings that are not removed may be cut off. - The hospital will not accept responsibility for valuables.? - Please leave all valuables, including medications, at home the day of surgery. If you are going home after surgery, a licensed regional dedicated truck driver must drive you home.? - NO public transportation without another adult if you receive anesthesia. - We recommend that an adult stay with you for 24 hours following discharge. - We also recommend that you do not drive, make important decision, drink alcoholic beverages, or take any drugs that were not prescribed by your health care provider for at least 24 hours after your discharge time. For Pediatric surgeries, we recommend two adults accompany the child home. Follow any additional instructions given to you from your surgeon. Telephone instructions given to _PATIENT__and asked if any additional questions and then verbalized understanding. Patient advised to call surgeon office or pre surgery nurse liaison [phone] if any additional questions.
--- NOTE | 2024-09-01 14:30 | PM.HPGS ---
History of Present Illness History of Present Illness Consent: Risks, benefits, and alternatives have been discussed and questions answered. Patient agrees to proceed with procedure. Chief complaint: left ureteral stone Narrative: Reynaldo Magallanes is a 43 year old male transferred from [facility] to [facility] on 08/11 with a obstructing painful 8 mm left proximal ureteral stone at L3/L4. ?I placed a ureteral stent and will plan left ESWL. ?The stone was calcified and visible on KUB. ?There were no other significant renal or ureteral calculi. Review of Systems Review of Systems: No All systems reviewed & are unremarkable except as noted in HPI and below PMFSH Past Medical History Medical History Chronic pain GERD (gastroesophageal reflux disease) Hydroureteronephrosis Claustrophobia Clavicle fracture Rotator cuff tear Essential hypertension Kidney stone Removed 2018 Depression Headache Heart burn Elevated liver enzymes Hyperlipidemia Family History Family History Sibling Diabetes mellitus Father Family history of lung cancer Mother Family history of malignant neoplasm of breast in first degree relative Social History Social History Smoking status: Current every day smoker Tobacco type: smokeless tobacco Smokeless tobacco user: chewing tobacco Additional smoking assessment comments: 30 YRS Alcohol intake: current Alcohol use details: 3 PER YEAR Substance use: never Substance use type: does not use Do You Feel Safe in your Home?: Yes Lack of Transportation: No Lack of Food: Never True Current Housing: I Have Housing Concerned About Future Housing: No Difficulty Paying Gas/Electric Bills: No Difficulty Paying for Meds: No Currently Unemployed: No Education: High School Diploma/GED Difficulty w/ Childcare or Family Care: No Living arrangements: with friend(s) Gender identity (if verbalized by the patient): Male Spiritual care concerns: No Meds Home Medications and Allergies Home Medications ?Medication ?Instructions ?Recorded ?Confirmed ?Type pantoprazole 40 mg tablet,delayed See Rx Instructions .Route 04/27/24 08/31/24 Rx release .COMPLEX #60 tabs diltiazem HCl 60 mg tablet 60 mg PO BID #180 tabs 07/15/24 08/31/24 Rx (Cardizem) oxycodone 5 mg tablet 5 mg PO Q8H PRN pain #10 tabs 08/11/24 08/31/24 Rx tamsulosin 0.4 mg capsule 0.4 mg PO DAILY PRN stent 08/11/24 08/31/24 Rx irritation #30 caps Allergies Allergy/AdvReac Type Severity Reaction Status Date / Time cortisone Allergy Intermediate Nausea and Verified 08/31/24 09:20 Vomiting ketorolac Allergy Nausea and Verified 08/31/24 10:44 Vomiting Exam Const: General: no acute distress Resp: Effort & Inspection: normal respiratory effort GI: Inspection: non-distended GI Palp: No abdominal tenderness and No Guarding due to palpation present (GI) Auscultation: normal bowel sounds Assessment and Plan Assessment and plan (1) Left ureteral stone: Code(s): N20.1 - Calculus of ureter Status: Acute Assessment and Plan: Cystscopy, left ureteral stent removal, left ESWL (2) Hydroureteronephrosis: Code(s): N13.30 - Unspecified hydronephrosis Status: Acute
[2024-09-09] VITALS (8 sets, daily range): BP systolic 114–153; BP diastolic 69–106; PULSE 62–80; RESP 14–20; TEMP 35.7–36.6; O2SAT 97–100; BMI 30.7
--- NOTE | ~2024-09-09 | XR_ITS ---
XR abdomen/kub 1V 09/09/2024 08:31 Indication: Preop ESWL Procedure: KUB Comparison: 08/11/2024 Findings: Left internal ureteral stent in expected position. Stable position of left ureteral stone a t the L4 level. There are left renal stones. Bowel gas pattern nonobstructive. Impression: 1: Stable position of the left mid ureteral stone at the L4 level. Interval placement of left interna l ureteral stent. 2: Left nephrolithiasis. Reviewed, dictated and finalized at location [] Impression: 1: Stable position of the left mid ureteral stone at the L4 level. Interval trevor cement of left internal ureteral stent. 2: Left nephrolithiasis.
--- OUTSIDE RECORDS SUMMARY | 2024-09-09 01:31 | XMS_ITS ---
Author Organization [facility] Address [address] [address] [place] [address] Care Team Providers Care Vacuum Tester Cans Name Role Phone Sebastien Rainey Unavailable [phone] Social History Sex Assigned At : Social History Observation Description Sex Assigned At Male Problems Problem Type SNOMED Code ICD Code Onset Dates Problem Status W/U Status Risk Notes Problem Atrioventricular septal defect, unspecified as to partial or complete (Q21.20) Active confirmed Encounters Encounter Location Date Provider Diagnosis [place] [facility] [address] [facility] [address] [place] [address] 03/02/2024 Sebastien Rainey Chronic kidney disea se, [...] Notes * Reynaldo MAGALLANESDOB:1980 (43 yo M)Acc No.[id number]:03/02/2024 Progress Notes Patient: Reynaldo PACHECO Provider: Kavitha VASQUEZ MD, F.A.C.P, F.A.S.N. :1980 A ge:43 Y S ex:Male Date:03/02/2024 Address[facility] Subjective: * Chief Complaints: * * [...] Treatment: * Billing Information: * Visit Code: 80492 Office Visit, Est Pt., Level 4. * Procedure Codes: * Electronic signature of Joi Rainey MD on 09/09/2024 at 01:31 AM CDT Sign off status: Pending * Provider: Kavitha VASQUEZ MD, Diann.RexP, F.A.S.N. Date: 03/02/2024 Generated for Printing/Faxing/eTransmitting on: 09/09/2024 01:31 AM CDT
--- OUTSIDE RECORDS SUMMARY | 2024-09-09 01:31 | XMS_ITS | Continuity of Care Document ---
Author Organization [facility] Address [address] [place] [address] Phone Care Team Providers Care Physician Relations Representative Name Role Phone Nehemias Carter MD Unavailable [...] Providers Copied on Encounter OFFICE/OUTPA TIENT VISIT, [facility], [address], [place], [place], [address], [place] tel:[phone] [facility] headache1 (chief complaint) GERD1 (chief complaint) anxiety1 (chief complaint) insomnia1 (chief complaint) Generalized anxiety disorderOther insomniaHeadacheGER D w/o esophagitis 6 Raul Del Cid. [address], [place], [place], [address] , [place]. tel:[phone] Referring Provider: [address], [place], [place], [address]. tel:[phone] OFFICE/OUTPA TIENT VISIT, [facility], [address], [place], [place], [address], [place] tel:[phone] [facility] HTN1 (chief complaint) GERD1 (chief complaint) headache1 (chief complaint) anxiety1 (chief complaint) muscle pain1 (chief complaint) HeadacheGERD w/o esophagitisGenerali zed Anxiety DisorderOther insomnia 5 Raul Del Cid[address], [place], [place], [address] , [place]. tel:[phone] Referring Provider: [address], [place], [place], [address]. tel:[phone] OFFICE/OUTPA TIENT VISIT, [facility], [address], [place], [place], [address], [place] tel:[phone] [facility] HTN1 (chief complaint) headache1 (chief complaint) GERD1 (chief complaint) anxiety (chief complaint) anxiety1 (chief complaint) Essential (primary) hypertensionTobacco useGERD without esophagitisOther insomnia 5 Raul Del Cid[address], [place], [place], [address] , [place]. tel:[phone] Referring Provider: [address], [place], [place], [address]. tel:[phone] OFFICE/OUTPA TIENT VISIT, [facility], [address], [place], [place], [address], [place] tel:[phone] [facility] headache (chief complaint) HTN (chief complaint) MOod swing (chief complaint) insomnia (chief complaint) GERD (chief complaint) Dietary surveillance and counselingInsomnia, unspecifiedHeadache BP - High blood pressureMood disorder 5 Raul Del Cid[address], [place], [place], [address] , [place]. tel:[phone] Referring Provider: [address], [place], [place], [address]. tel:[phone] OFFICE/OUTPA TIENT VISIT, [facility], [address], [place], [place], [address], [place] tel:[phone] [facility] HTN (chief complaint) GERD (chief complaint) headache (chief complaint) mood disorder (chief complaint) back pain (chief complaint) HeadacheBP - High blood pressurePersonality disorder characterized by alternating episodes of mood swings from mild to moderate depression to episodes full of hyperactivity, excitement, elevated mood and high energyLumbago 5 Raul Del Cid. [address], [place], [place], [address] , [place]. tel:[phone] Referring Provider: [address], [place], [place], [address]. tel:[phone] OFFICE/OUTPA TIENT VISIT, [facility], [address], [place], [place], [address], [place] tel:[phone] [facility] HTN (chief complaint) headache (chief complaint) GERD (chief complaint) depression (chief complaint) Dietary surveillance and counselingBP - High blood pressureHeadacheIns omnia, unspecifiedGERD - Gastro-esophageal reflux disease 5 Raul Walker [address], [place], [place], [address] , [place]. tel:[phone] Referring Provider: [address], [place], [place], [address]. tel:[phone] OFFICE/OUTPA TIENT VISIT, [facility], [address], [place], [place], [address], [place] tel:[phone] [facility] headache (chief complaint) HLP (chief complaint) HTN (chief complaint) INsomnia (chief complaint) HeadacheInsomnia, unspecifiedOther and unspecified hyperlipidemiaBlood pressure elevated 5 Raul [address] Cid[address], [place], [place], [address] , [place]. tel:[phone] Referring Provider: Nehemias Carter, [address], [place], [place], [address]. tel:[phone] OFFICE/OUTPA TIENT VISIT, [facility], [address], [place], [place], [address], [place] tel:[phone] [facility] headache (chief complaint) Headache 5 Ra[address] Cid[address], [place], [place], [address] , [place]. tel:[phone] Referring Provider: [address], [place], [place], [address]. tel:[phone] OFFICE/OUTPA TIENT VISIT, [facility], [address], [place], [place], [address], [place] tel:[phone] [facility] headache (chief complaint) TG (chief complaint) vitamin D (chief complaint) Insomnia (chief complaint) HeadacheInsomnia, OtherOther and unspecified hyperlipidemiaUnspe cified vitamin d deficiency 5 Raul [address] Cid[address], [place], [place], [address] , [place]. tel:[phone] Referring Provider: [address], [place], [place], [address]. tel:[phone] PREV VISIT, NEW, AGE 18-39 [facility], [address], [place], [place], [address], [place] tel:[phone] [facility] Physical (chief complaint) Routine Medical ExamHeadacheMonocul ar exotropia with a patternInsomnia, OtherRoutine Medical Exam 5 Raul Del Cid. [address], [place], [place], [address] , [place]. tel:[phone] Family History Family Member Type Diagnosis Age [...] any back pain Pt denies any injury anxiety1 Pt has chronic a nxiety and depression and mood swings Pt states that his mood is very good since taking depakote. Pt is on lexapro also. Pt has some situational depression since his father has lung CA now. Pt denies any suicidal thought. Pt denies any feeling of hopelessness. HTN1 Pt has not been taking norvasc [...] great. Pt denies any abd pain anxiety GERD Pertinent negati ves include back pain, [...] has not done mRI yet. HTN Pt takes norvasc . His BP is ok. Pt denies any chset pain back pain Additional infor mation: Pt c/o [...] does not know the name of meds. depression The patient pres ents with anxious/fearful [...] Mental Status Date Cognitive Assessment Orientation - [place] ed to time, place, person, situation.
--- OUTSIDE RECORDS SUMMARY | 2024-09-09 01:31 | XMS_ITS | Patient Health Record ---
Author Organization [facility] Address [address] [facility] [address] [facility] [address] [place] [address] Care Team Providers Care Pillowcase Turner Name Role Phone Sebastien Rainey Unavailable [phone] Reason For Referral No Information Social History Sex Assigned At : Social History Observation Description Sex Assigned At Male Problems Problem Type SNOMED Code ICD Code Onset Dates Problem Status W/U Status Risk Notes Problem Chronic pain syndrome (699509203) Chronic pain syndrome (G89.4) Active confirmed Problem Essential hypertension (92725175) Essential (primary) hypertension (I10) Active confirmed Problem Chronic kidney disease stage 2 (378881976) Chronic kidney disease, stage 2 (mild) (N18.2) Active confirmed Problem Calculus of kidney (75999752) Calculus of kidney (N20.0) Active confirmed Problem Renal osteodystrophy (93077917) Renal osteodystrophy (N25.0) Active confirmed Problem Atrioventricular septal defect, unspecified as to partial or complete (Q21.20) Active confirmed Encounters Encounter Location Date Provider Diagnosis [place] [facility] [address] [place] [address] 02/26/2024 Sebastien Rainey Chronic kidney disea se, stage 2 (mild) N18.2 ; Calculus of kidney N20.0 ; Essential (primary) hypertension I10 ; Renal osteodystrophy N25.0 and Chronic pain syndrome G89.4 [place] [facility] [address] [address] 03/02/2024 Sebastien Rainey Chronic kidney disea se, stage 2 (mild) N18.2 ; Chronic pain syndrome G89.4 ; Renal osteodystrophy N25.0 ; Essential (primary) hypertension I10 ; Calculus of kidney N20.0 and Atrioventricular septal defect, unspecified as to partial or complete Q21.20 [place] [facility] [address] [address] 03/02/2024 Sebastien Rainey [place] [facility] [address]43 [facility] 15 [place] [address] 03/02/2024 Sebastien Rainey [place] [facility] [address] [facility] [address] [place] [address] 03/02/2024 Sebastien Rainey Assessments Encounter Date Diagnosis [...]
--- OUTSIDE RECORDS SUMMARY | 2024-09-09 01:31 | XMS_ITS ---
Author Organization [facility] Address [address] [place] [address] Care Team Providers Care Rim Fire Priming Operator Name Role Phone Sebastien Rainey Unavailable [phone] Social History Sex Assigned At : Social History Observation Description Sex Assigned At Male Encounters Encounter Location Date Provider Diagnosis [place] [facility] 2043 [facility] 15 [place] [address] 03/16/2024 Sebastien Rainey Plan Of Treatment No Information Progress Notes * Reynaldo MAGALLANESDOB:1980 (43 yo M)Acc No.[id number]:03/16/2024 Progress Notes Patient: Reynaldo PACHECO Provider: Kavitha VASQUEZ MD, Diann.Michael.C.P, F.A.S.N. :1980 A ge:43 Y S ex:Male Date:03/16/2024 Address:[address] [place] [address] [facility] Subjective: * Chief Complaints: * * Medical History: Objective: * Vitals: Assessment: Plan: * Treatment: * Billing Information: * Visit Code: * Procedure Codes: * Electronic signature of Joi Rainey MD on 09/09/2024 at 01:30 AM CDT Sign off status: Pending * Provider: Kavitha VASQUEZ MD, F.Michael.C.P, F.A.S.N. Date: 03/16/2024 Generated for Printing/Faxing/eTransmitting on: 09/09/2024 01:30 AM CDT
--- OUTSIDE RECORDS SUMMARY | 2024-09-09 01:31 | XMS_ITS | Clinical Summary ---
Author Organization [facility] Address [address] [place] [address] Care Team Providers Care Snowblower Mechanic Name Role Phone Ken Fermin MD Primary Care Provider [phone] Source Comments [facility],non-owned Affiliates and Associated Physician Practices is amultiple site organization consisting of ambulatory clinics and hospital sitesin [place], [place], [place] and [place]. This disclosure is being madepursuant to the Care Everywhere program and may not contain all information available regarding this patient. Last updated 17.[facility] Allergies Active Allergy Reactions Criticality Noted Date [...] this topic Medical Devices Implanted Type Area Metalworking Instructor Device Identifier Shelf Expiration Date Model / Serial / Lot Stent Uret 6fr 26cm Pgtl Crv Tpr Tip Implanted:Qty: 1 on 11/04/2017 by Corrie Clarke DO at [facility] Left: [facility] 04/19/2020 [id number] / / Insurance Advance Directives * Full Code (Latest Code Status on File) Date Activated Date Inactivated Comments 08/15/2018 4:27 PM 08/16/2018 5:47 PM * Full Code Date Activated Date Inactivated Comments 11/04/2017 10:54 AM 11/04/2017 6:01 PM * Full Code Date Activated Date Inactivated Comments 11/02/2017 9:22 PM 11/03/2017 6:42 PM Care Teams Snowblower Mechanic Relationship Specialty Start Date End Date Ken Fermin MD [address] [facility] [address] [place] [address] PCP - General 12/16/17
--- OUTSIDE RECORDS SUMMARY | 2024-09-09 01:31 | XMS_ITS ---
Author Organization [facility] Address [address] [address] [place] [address] Care Team Providers Care Personnel Counselor Name Role Phone Sebastien Rainey Unavailable [phone] Social History Sex Assigned At : Social History Observation Description Sex Assigned At Male Problems Problem Type SNOMED Code ICD Code Onset Dates Problem Status W/U Status Risk Notes Problem Chronic kidney disease stage 2 (001956942) Chronic kidney disease, stage 2 (mild) (N18.2) Active confirmed Problem Calculus of kidney (23252242) Calculus of kidney (N20.0) Active confirmed Problem Essential hypertension (97124146) Essential (primary) hypertension (I10) Active confirmed Problem Renal osteodystrophy (N25.0) Active confirmed Problem Chronic pain syndrome (726868547) Chronic pain syndrome (G89.4) Active confirmed Encounters Encounter Location Date Provider Diagnosis [place] [facility] [address] [facility] [address] [place] [address] 02/26/2024 Sebastien Rainey Chronic kidney disea se, [...] Notes * Reynaldo MAGALLANESDOB:1980 (43 yo M)Acc No.[id number]:02/26/2024 Progress Notes Patient: Reynaldo PACHECO Provider: Kavitha VASQUEZ MD, F.Michael.C.P, F.A.S.N. :1980 A ge:43 Y S ex:Male Date:02/26/2024 Address:[address] [place], [place] [id number] Subjective: * Chief Complaints: * * Medical [...] Treatment: * Billing Information: * Visit Code: 57547 Office Visit, New Pt., Level 4. * Procedure Codes: * Electronic signature of Joi Rainey MD on 09/09/2024 at 01:31 AM CDT Sign off status: Pending * Provider: Kavitha VASQUEZ MD, Diann.Michael.C.P, F.A.S.N. Date: 0 02/26/2024 Generated for Printing/Faxing/eTransmitting on: 0 09/09/2024 01:31 AM CDT
--- NOTE | 2024-09-09 06:18 | WPDHPUPDATE1 ---
History and Physical Update Update Date/Time: 09/09/24 06:18 History and Physical has been reviewed, including an updated exam of the patient. There are NO changes in the patient's condition. Risks, benefits, and alternatives have been discussed and questions answered. Patient agrees to proceed with procedure.
[2024-09-09] MEDS: LACTATED RINGERS 1,000 ML 30 ML IV CONT (09:20)
--- NOTE | 2024-09-09 10:07 | P.PNAN_ITS ---
Anes - Eval Pre Procedure Procedure: Operation Date: 09/09/24 10:30 Proposed Procedures p Left Extracorporeal Shock Wave Lithotripsy, - Ishan Hernandez MD s Cystoscopy, Left Ureteral Stent Removal/Replacement - Ishan Hernandez MD Date/Time: 09/09/24 10:07 Pre Op Diagnosis: left ureteral stone Patient Data Age: 43 Gender: M Height: 1.75 m Weight: 94.2 kg Last Vital Signs Temp 96.2 F L 09/09/24 09:36 Pulse 80 09/09/24 09:36 Resp 16 09/09/24 09:36 BP 153/106 H 09/09/24 09:36 Pulse Ox 100 09/09/24 09:36 O2 Del Method Room Air 09/09/24 09:36 Allergies Allergy/AdvReac Type Severity Reaction Status Date / Time cortisone Allergy Intermediate Nausea and Verified 09/09/24 09:34 Vomiting ketorolac Allergy Nausea and Verified 09/09/24 09:34 Vomiting Home Medications ?Medication ?Instructions ?Recorded ?Confirmed ?Type pantoprazole 40 mg tablet,delayed See Rx Instructions .Route 04/27/24 09/09/24 Rx release .COMPLEX #60 tabs diltiazem HCl 60 mg tablet 60 mg PO BID #180 tabs 07/15/24 09/09/24 Rx (Cardizem) oxycodone 5 mg tablet 5 mg PO Q8H PRN pain #10 tabs 08/11/24 08/31/24 Rx tamsulosin 0.4 mg capsule 0.4 mg PO DAILY PRN stent 08/11/24 09/09/24 Rx irritation #30 caps Patient hx anesthesia problems: none Family hx anesthesia problems: none Results Review: All pre-operative results and documents have been reviewed as part of the pre- operative evaluation. [facility] Past Medical History Medical History (Updated 09/09/24 @ 10:08 by Hussein Glover Jr., CRNA) Migraine Chronic pain GERD (gastroesophageal reflux disease) Hydroureteronephrosis Claustrophobia Clavicle fracture Rotator cuff tear Essential hypertension Kidney stone Removed 2018 Depression Headache Heart burn Elevated liver enzymes Hyperlipidemia Family History Family History Sibling Diabetes mellitus Father Family history of lung cancer Mother Family history of malignant neoplasm of breast in first degree relative Social History Social History Smoking status: Current every day smoker Tobacco type: smokeless tobacco Smokeless tobacco user: chewing tobacco Additional smoking assessment comments: 30 YRS Alcohol intake: never Alcohol use details: 3 PER YEAR Substance use: never Substance use type: does not use Do You Feel Safe in your Home?: Yes Lack of Transportation: No Lack of Food: Never True Current Housing: I Have Housing Concerned About Future Housing: No Difficulty Paying Gas/Electric Bills: No Difficulty Paying for Meds: No Currently Unemployed: No Education: High School Diploma/GED Difficulty w/ Childcare or Family Care: No Living arrangements: with friend(s) Gender identity (if verbalized by the patient): Male Spiritual care concerns: No Exam Day of Procedure 09/09/24 10:07 Patient weight: overweight
[2024-09-09] MEDS: ceFAZolin 2 GM in SODIUM CHLORIDE 0.9% IV 50 ML 100 ML IVPB (10:52)
--- NOTE | 2024-09-09 11:07 | P.PNAN_ITS ---
Anes - Eval Final PreProcedure Day of Procedure 09/09/24 11:07 Patient weight: overweight Heart: regular rate and rhythm Lungs: clear to auscultation Airway: Mallampati scale (poor dentition throughout) class II Neurological: alert and oriented Last oral intake: >/= 8 hours ASA classification: III Emergent: no Anesthetic plan: proceed Anesthesia type and monitoring: general GIVS and standard monitoring Results Review: All pre-operative results and documents have been reviewed as part of the pre- operative evaluation. Informed Consent: The patient's anesthetic plan and its attendant risks and benefits were discussed with the patient/family/POA. Questions were solicited and answers provided to the satisfaction of the patient/family/POA.
--- NOTE | 2024-09-09 11:15 | P.OP_ITS ---
Procedure Note - Detailed Date of Procedure 09/09/24 Pre-op Diagnosis Left ureteral stone Post-op Diagnosis Same Procedure Performed Cystoscopy, left ureteral stent removal, left ESWL Surgeon Ishan Hernandez MD Anesthesia General Description of Procedure The patient was brought to the operative suite where he was placed in the supine position on the Dornier lithotripter table. Flexible cystoscopy was undertaken with a 16F flexible cystoscopy. There were no urethral strictures. The prostatic urethra estimated length was 1.5cm. There was no obstruction of the prostatic urethra. The bladder mucosa was normal and there was a single, orthotopic ureteral orifice bilaterally. The tip of the indwelling stent is grasped and the stent is removed with ease. The patient was then repositioned in the supine position with the focal point of the lithotriptor on a 6-7mm left mid-ureteral calculus. A total of 3000 shocks were delivered at a power setting of 4. There appeared to be good fragmentation of the stone. The patient tolerated the procedure well and was taken to the recovery room in good con dition. Drains No Packing No Pathology None sent
== END 2024-09-09 12:55 | disposition home or self-care (01) ==
PROVIDERS: PCP Internal Medicine; Visit Provider Urology
PROC: (CPT 50590; principal; 2024-09-09 10:30)
PROC: (CPT 52352; 2024-09-09 10:30)
DX: N20.1 Calculus of ureter (principal); N13.30 Unspecified hydronephrosis; G89.29 Other chronic pain; E78.5 Hyperlipidemia, unspecified; I10 Essential (primary) hypertension; K21.9 Gastro-esophageal reflux disease without esophagitis; F40.240 Claustrophobia; F32.A Depression, unspecified; F17.220 Nicotine dependence, chewing tobacco, uncomplicated; Z79.891 Long term (current) use of opiate analgesic; Z80.1 Family history of malignant neoplasm of trachea, bronchus and lung; Z80.3 Family history of malignant neoplasm of breast
CPT/HCPCS: 52310; 50590; 74018; J0690; C1769; J2003; J2405; J2704; J3010; J7030; J7120

== ENCOUNTER 2024-12-09 00:50 | Day surgery (SDC) | payer BC, MEDICAID, SELFPAY ==
--- OUTSIDE RECORDS SUMMARY | 2024-02-26 11:30 | XMS_ITS ---
Author Organization [facility] Address [address] [address] [place] [address] Care Team Providers Care Debone Processing Supervisor Name Role Phone Redd Sebastien Unavailable [phone] Social History Sex Assigned At : Social History Observation Description Sex Assigned At Male Problems Problem Type SNOMED Code ICD Code Onset Dates Problem Status W/U Status Risk Notes Problem Chronic kidney disease stage 2 (125161387) Chronic kidney disease, stage 2 (mild) (N18.2) Active confirmed Problem Calculus of kidney (05933598) Calculus of kidney (N20.0) Active confirmed Problem Essential hypertension (09187005) Essential (primary) hypertension (I10) Active confirmed Problem Renal osteodystrophy (55253054) Renal osteodystrophy (N25.0) Active confirmed Problem Chronic pain syndrome (359899744) Chronic pain syndrome (G89.4) Active confirmed Encounters Encounter Location Date Provider Diagnosis [place] [facility] [address] [facility] [address] [place] [address] 02/26/2024 Sebastien Rainey Chronic kidney disea se, [...] Notes * Tracy MAGALLANES:1980 (44 yo M)Acc No.[id number]:02/26/2024 Progress Notes Patient: Reynaldo PACHECO Provider: Kavitha VASQUEZ MD, F.A.C.P, F.A.S.N. :1980 A ge:43 Y S ex:Male Date:02/26/2024 Address:[address] [place], [place] [id number] Subjective: * Chief Complaints: * * Medical [...] Treatment: * Billing Information: * Visit Code: 91729 Office Visit, New Pt., Level 4. * Procedure Codes: * Electronic signature of Joi Rainey MD on 12/09/2024 at 12:52 AM CDT Sign off status: Pending * Provider: Kavitha VASQUEZ MD, F.A.C.P, F.A.S.N. Date: 0 02/26/2024 Generated for Printing/Faxing/eTransmitting on: 1 12:52 AM CDT
--- OUTSIDE RECORDS SUMMARY | 2024-03-02 11:15 | XMS_ITS ---
Author Organization [facility] Address [address] [address] [place] [address] Care Team Providers Care Laboratory Assistant Name Role Phone Sebastien Rainey Unavailable [phone] Social History Sex Assigned At : Social History Observation Description Sex Assigned At Male Problems Problem Type SNOMED Code ICD Code Onset Dates Problem Status W/U Status Risk Notes Problem Atrioventricular septal defect, unspecified as to partial or complete (Q21.20) Active confirmed Encounters Encounter Location Date Provider Diagnosis [place] [facility] [address] [facility] [address] [place] [address] 03/02/2024 Sebastien Rainey Chronic kidney disea se, [...] Notes * Reynaldo MAGALLANESDOB:1980 (44 yo M)Acc No.[id number]:03/02/2024 Progress Notes Patient: Reynaldo PACHECO Provider: Kavitha VASQUEZ MD, F.A.C.P, F.A.S.N. :1980 A ge:43 Y S ex:Male Date:03/02/2024 [id number] Subjective: * Chief Complaints: * * Medical [...] Treatment: * Billing Information: * Visit Code: 77336 Office Visit, Est Pt., Level 4. * Procedure Codes: * Electronic signature of Joi Rainey MD on 12/09/2024 at 12:53 AM CDT Sign off status: Pending * Provider: Kavitha VASQUEZ MD, Diann.RexP, F.A.S.N. Date: 0 03/02/2024 Generated for Printing/Faxing/eTransmitting on: 12:53 AM CDT
--- OUTSIDE RECORDS SUMMARY | 2024-03-16 13:30 | XMS_ITS ---
Author Organization [facility] Address [address] [place] [address] Care Team Providers Care Radio Division Officer Name Role Phone Sebastien Rainey Unavailable [phone] Social History Sex Assigned At : Social History Observation Description Sex Assigned At Male Encounters Encounter Location Date Provider Diagnosis [place] [facility] [address] [facility] 15 [place] [address] 03/16/2024 Sebastien Rainey Plan Of Treatment No Information Progress Notes * Reynaldo MAGALLANESDOB:1980 (44 yo M)Acc No.[id number]:03/16/2024 Progress Notes Patient: Reynaldo PACHECO Provider: Kavitah VASQUEZ MD, Diann.Michael.C.P, F.A.S.N. :1980 A ge:43 Y S ex:Male Date:03/16/2024 Address:[address] [place] [address] [id number] Subjective: * Chief Complaints: * * Medical History: Objective: * Vitals: Assessment: Plan: * Treatment: * Billing Information: * Visit Code: * Procedure Codes: * Electronic signature of Joi Rainey MD on 12/09/2024 at 12:52 AM CDT Sign off status: Pending * Provider: Kavitha VASQUEZ MD, F.Michael.C.P, F.A.S.N. Date: 0 03/16/2024 Generated for Printing/Faxing/eTransmitting on: 12:52 AM CDT
--- NOTE | 2024-12-07 16:01 | SUR.PREOP ---
[facility] has started construction of its new state of the art ER which will open Spring 2026. With this, we anticipate parking may be a challenge for some our surgical patients and families. Parking spaces are limited but are available for all Surgical, obstetrics, and ER patients sharing this lot. If you arrive and find you are having a hard time finding a parking space, please note that we understand the challenges, please drive around the hospital and park near Hospital Entrance 1. When you enter this entrance, you can ask a volunteer to direct or take you back to the surgical waiting area to check in. We appreciate everyone?s understanding of these expected challenges while we build for your future. Report to the Outpatient Waiting Room, entrance under the green pavilion located off [address], at time _630am__ on date __12/09/24___. Planned Procedure Time: __830__.? Time changes happen often and if your time is changed the preop area will call you the afternoon before. - You and your visitor will be asked to self-screen and do not enter if you have any COVID symptoms. Please call surgeon if you need to reschedule. - A mask is optional within the hospital at this time. Patients may have clear liquids (water, carbonated beverages, clear teas, apple juice) until 3 hours prior to surgery with a maximum of 20 ounces. - No food from midnight until time of surgery and no smoking, or chewing tobacco (or any form of nicotine). No chewing gum, candy or mints. Take only the following medications with a SIP of water on the morning of surgery: _diltiazem, (hydrocodone 10/325 if needed).__ DO NOT STOP ANY OF YOUR OTHER PRESCRIPTION MEDICATIONS PRIOR TO SURGERY EXCEPT THE FOLLOWING Hold all vitamins and supplements for 3 days per anesthesiologist. Medications to discontinue per physician ___n/a Date to take last dose___n/a____ Please no make-up, nail turkish, hairspray, perfume, deodorant, or body powder the day of surgery.? No jewelry (including any body piercings) or valuables the day of surgery, leave them at home.? Please take a shower or bath the night before, or the morning of, surgery with an antibacterial soap.? Wear comfortable, loose fitting clothing.? - Jewelry must be removed prior to entering the operating room.? Rings and piercings that are not removed may be cut off. - The hospital will not accept responsibility for valuables.? - Please leave all valuables, including medications, at home the day of surgery. If you are going home after surgery, a licensed driver courier must drive you home.? - NO public transportation without another adult if you receive anesthesia. - We recommend that an adult stay with you for 24 hours following discharge. - We also recommend that you do not drive, make important decision, drink alcoholic beverages, or take any drugs that were not prescribed by your health care provider for at least 24 hours after your discharge time. Follow any additional instructions given to you from your surgeon. Telephone instructions given to __Reynaldo___and asked if any additional questions and then verbalized understanding. Patient advised to call surgeon office or pre surgery nurse liaison [phone] if any additional questions.
[2024-12-07 16:13] VITALS: BMI 29.9
[2024-12-09] VITALS (9 sets, daily range): BP systolic 105–140; BP diastolic 62–97; PULSE 60–81; RESP 16–18; TEMP 36.4–36.6; O2SAT 99–100
--- NOTE | ~2024-12-09 | XR_ITS ---
EXAMINATION: XR stent kub - surgery INDICATION: LEFT SIDE STONE . COMPARISON: August 11 TECHNIQUE: 4 fluoroscopic images of the abdomen/pelvis were obtained during retrograde pyelogram/stent placement on the left. Fluoroscopy exposure time was 57 seconds. Air Kerma 27.32 mGy. DAP 1.36 mGym2. FINDINGS/IMPRESSION: No radiologist was present or involved at the time of the procedure. Static images were submitted for interpretation. Images demonstrate placement of a left ureteral stent. There is motion on some of the images, which limits evaluation. Fluoroscopic documentation of left ureteral stent placement. Please refer to the operative note for complete procedural details. Reviewed, dictated and finalized at location A.
--- OUTSIDE RECORDS SUMMARY | 2024-12-09 00:52 | XMS_ITS | Patient Health Record ---
Author Organization [facility] Address [address] [facility] [address] [facility] [address] [place] [address] Care Team Providers Care Electrostatic Paint Operator Name Role Phone Sebastien Rainey Unavailable [phone] Reason For Referral No Information Social History Sex Assigned At : Social History Observation Description Sex Assigned At Male Problems Problem Type SNOMED Code ICD Code Onset Dates Problem Status W/U Status Risk Notes Problem Chronic pain syndrome (959276591) Chronic pain syndrome (G89.4) Active confirmed Problem Essential hypertension (32598879) Essential (primary) hypertension (I10) Active confirmed Problem Chronic kidney disease stage 2 (554558036) Chronic kidney disease, stage 2 (mild) (N18.2) Active confirmed Problem Calculus of kidney (91047791) Calculus of kidney (N20.0) Active confirmed Problem Renal osteodystrophy (67121649) Renal osteodystrophy (N25.0) Active confirmed Problem Atrioventricular septal defect, unspecified as to partial or complete (Q21.20) Active confirmed Encounters Encounter Location Date Provider Diagnosis [place] [facility] [address] [place] [address] 02/26/2024 Sebastien Rainey Chronic kidney disea se, stage 2 (mild) N18.2 ; Calculus of kidney N20.0 ; Essential (primary) hypertension I10 ; Renal osteodystrophy N25.0 and Chronic pain syndrome G89.4 [facility] [address] [address] 03/02/2024 Sebastien Rainey Chronic kidney disea se, stage 2 (mild) N18.2 ; Chronic pain syndrome G89.4 ; Renal osteodystrophy N25.0 ; Essential (primary) hypertension I10 ; Calculus of kidney N20.0 and Atrioventricular septal defect, unspecified as to partial or complete Q21.20 [facility] [address] [address] 03/02/2024 Sebastien Rainey [facility] [address] [facility] [address] [place] [address] 03/02/2024 Sebastien Rainey [facility] [address] [facility] [address] [place] [address] 03/02/2024 Sebastien Rainey Assessments Encounter Date Diagnosis [...]
--- OUTSIDE RECORDS SUMMARY | 2024-12-09 00:53 | XMS_ITS | Clinical Summary ---
Author Organization [facility] Address [address] [place] [address] Care Team Providers Care Boom Crane Operator Name Role Phone Ken Fermin MD Primary Care Provider [phone] Source Comments [facility],non-owned Affiliates and Associated Physician Practices is amultiple site organization consisting of ambulatory clinics and hospital sitesin [place], [place], [place] and [place]. This disclosure is being madepursuant to the Care Everywhere program and may not contain all information available regarding this patient. Last updated 17.[facility] [employer] Allergies Active Allergy Reactions Criticality Noted Date [...] Health Maintenance Due Date Last Done Comments COLOGUARD (AGES 45-75) - COL ON CA SCREENING 1979 COLON MONITORING 1979 COLONOSCOPY - COLON CA SCREENING 1979 CT COLONOGRAPHY - COLON CA SCREENING 1979 Colorectal Cancer Screening 1979 FIT - COLON CA SCREENING 1979 FLEX SIG - COLON CA SCREENING 1979 LIPID TESTING 1979 HIV SCREENING 09/28/1994 HEPATITIS C SCREENING 09/24/1997 DTAP/TDAP/TD VACCINES (1 - Tdap) 09/28/1998 HEPATITIS B VACCINE (1 of 3 - 19+ 3-dose series) 09/28/1998 HPV VACCINE (1 - 3-dose SCDM series) 09/28/2006 DEPRESSION SCREENING 02/10/2024 COVID-19 VACCINE ( - 2023-2 5 season) 2024 INFLUENZA VACCINE (#1) 2024 ZOSTER VACCINE (1 [...] this topic Medical Devices Implanted Type Area Metal Sprayer Machined Parts Device Identifier Shelf Expiration Date Model / Serial / Lot Stent Uret 6fr 26cm Pgtl Crv Tpr Tip Implanted:Qty: 1 on 11/04/2017 by Corrie Clarke DO at [facility] Left: [facility] [employer] [facility] 04/19/2020 [id number] / / Insurance MEDICAID - [place] Advance Directives * Full Code (Latest Code Status on File) Date Activated Date Inactivated Comments 08/15/2018 4:27 PM 08/16/2018 5:47 PM * Full Code Date Activated Date Inactivated Comments 11/04/2017 10:54 AM 11/04/2017 6:01 PM * Full Code Date Activated Date Inactivated Comments 11/02/2017 9:22 PM 11/03/2017 6:42 PM Care Teams Boom Crane Operator Relationship Specialty Start Date End Date Ken Fermin MD [address] [place] [address] PCP - General 12/16/17
--- NOTE | 2024-12-09 06:18 | WPDHPUPDATE1 ---
History and Physical Update Update Date/Time: 12/09/24 06:18 History and Physical has been reviewed, including an updated exam of the patient. There are NO changes in the patient's condition. Risks, benefits, and alternatives have been discussed and questions answered. Patient agrees to proceed with procedure.
[2024-12-09] MEDS: LACTATED RINGERS 1,000 ML 30 ML IV CONT (06:45)
--- NOTE | 2024-12-09 06:55 | PM.HPGS ---
History of Present Illness History of Present Illness Consent: Risks, benefits, and alternatives have been discussed and questions answered. Patient agrees to proceed with procedure. Chief complaint: left ureteral stone Narrative: Reynaldo Magallanes is a 44 year old male who is known to us with a history of urolithiasis status post ESWL in summer 2024. Was in the emergency department at [facility] on 11/30/2024 with left flank pain. Imaging demonstrates several punctate stones in his left kidney and an obstructing 7 mm proximal ureteral stone. After discussion of available options he is electing for cystoscopy with ureteroscopy and management of his left ureteral stone. He is aware that the risk include, but not limited to, ureteral injury, need for stent placement, need for additional procedures. Review of Systems Review of Systems: All systems reviewed & are unremarkable except as noted in HPI and below PMFSH Past Medical History Medical History Migraine Chronic pain GERD (gastroesophageal reflux disease) Hydroureteronephrosis Claustrophobia Clavicle fracture Rotator cuff tear Essential hypertension Kidney stone Removed 2019 Depression Headache Heart burn Elevated liver enzymes Hyperlipidemia Family History Family History Sibling Diabetes mellitus Father Family history of lung cancer Mother Family history of malignant neoplasm of breast in first degree relative Social History Social History Smoking status: Current every day smoker Tobacco type: smokeless tobacco Smokeless tobacco user: chewing tobacco Additional smoking assessment comments: 30 YRS Alcohol intake: never Alcohol use details: 3 PER YEAR Substance use: never Substance use type: does not use Do You Feel Safe in your Home?: Yes Lack of Transportation: No Lack of Food: Never True Current Housing: I Have Housing Concerned About Future Housing: No Difficulty Paying Gas/Electric Bills: No Difficulty Paying for Meds: No Currently Unemployed: No Education: High School Diploma/GED Difficulty w/ Childcare or Family Care: No Living arrangements: with friend(s) Gender identity (if verbalized by the patient): Male Spiritual care concerns: No Meds Home Medications and Allergies Home Medications ?Medication ?Instructions ?Recorded ?Confirmed ?Type diltiazem HCl 60 mg tablet 60 mg PO BID #60 tabs 12/07/24 12/07/24 Rx (Cardizem) duloxetine 30 mg capsule,delayed 30 mg PO DAILY #30 caps 12/07/24 12/07/24 Rx release hydrocodone 10 mg-acetaminophen 1 tablet PO Q4-6H 12/07/24 12/07/24 History 325 mg tablet tamsulosin 0.4 mg capsule 0.4 mg PO .am 12/07/24 12/07/24 History Allergies Allergy/AdvReac Type Severity Reaction Status Date / Time cortisone Allergy Intermediate Nausea and Verified 12/07/24 16:04 Vomiting ketorolac Allergy Nausea and Verified 12/07/24 16:04 Vomiting Exam Const: General: no acute distress Resp: Effort & Inspection: normal respiratory effort GI: Inspection: non-distended GI Palp: No abdominal tenderness and No Guarding due to palpation present (GI) Auscultation: normal bowel sounds Assessment and Plan Assessment and plan (1) Left ureteral stone: Code(s): N20.1 - Calculus of ureter Status: Acute Assessment and Plan: Cystoscopy, left ureteroscopy with laser lithotripsy, stone extraction with possible retrograde pyelogram and stent placement
--- NOTE | 2024-12-09 06:57 | WPDHPUPDATE1 ---
History and Physical Update Update Date/Time: 12/09/24 06:57 History and Physical has been reviewed, including an updated exam of the patient. There are NO changes in the patient's condition. Risks, benefits, and alternatives have been discussed and questions answered. Patient agrees to proceed with procedure.
--- NOTE | 2024-12-09 07:30 | P.PNAN_ITS ---
Anes - Initial Pre Proc Eval Procedure: Operation Date: 12/09/24 08:30 Proposed Procedures p Cystoscopy, Left Ureteroscopy, Possible Left Retrograde Pyelogram, Possible Left Stone Extraction, Possible Left Stent Placement, Possible Holmium Laser - Ishan Hernandez MD Date/Time: 12/09/24 07:30 Surgeon: Ishan Hernandez MD Pre Op Diagnosis: left ureteral stone Patient Data Age: 44 Gender: M Height: 1.75 m Weight: 92.2 kg Allergies Allergy/AdvReac Type Severity Reaction Status Date / Time cortisone Allergy Intermediate Nausea and Verified 12/09/24 07:30 Vomiting ketorolac Allergy Nausea and Verified 12/09/24 07:30 Vomiting Home Medications ?Medication ?Instructions ?Recorded ?Confirmed ?Type diltiazem HCl 60 mg tablet 60 mg PO BID #60 tabs 12/0712/09/24 Rx (Cardizem) duloxetine 30 mg capsule,delayed 30 mg PO DAILY #30 ca ps 12/07/24 12/07/24 Rx release hydrocodone 10 mg-acetaminophen 1 tablet PO Q4-6H 11/1012/07/24 History 325 mg tablet tamsulosin 0.4 mg capsule 0.4 mg PO .am 12/07/2412/07 History Patient hx anesthesia problems: none Family hx anesthesia problems: none Results Review: All pre-operative results and documents have been reviewed as part of the pre- operative evaluation. ON LICENSE OF [facility] Past Medical History Medical History Migraine Chronic pain GERD (gastroesophageal reflux disease) Hydroureteronephrosis Claustrophobia Clavicle fracture Rotator cuff tear Essential hypertension Kidney stone Removed 2018 Depression Headache Heart burn Elevated liver enzymes Hyperlipidemia Family History Family History Sibling Diabetes mellitus Father Family history of lung cancer Mother Family history of malignant neoplasm of breast in first degree relative Social History Social History Smoking status: Current every day smoker Tobacco type: smokeless tobacco Smokeless tobacco user: chewing tobacco Additional smoking assessment comments: 30 YRS Alcohol intake: never Alcohol use details: 3 PER YEAR Substance use: never Substance use type: does not use Do You Feel Safe in your Home?: Yes Lack of Transportation: No Lack of Food: Never True Current Housing: I Have Housing Concerned About Future Housing: No Difficulty Paying Gas/Electric Bills: No Difficulty Paying for Meds: No Currently Unemployed: No Education: High School Diploma/GED Difficulty w/ Childcare or Family Care: No Living arrangements: with friend(s) Gender identity (if verbalized by the patient): Male Spiritual care concerns: No Anes - Eval Final PreProcedure Day of Procedure 12/09/24 07:30 Patient weight: obese Heart: regular rate and rhythm Lungs: clear to auscultation Airway: Mallampati scale class II Neurological: alert and oriented Last oral intake: >/= 8 hours ASA classification: III Emergent: no Anesthetic plan: proceed Anesthesia type and monitoring: general LMA and standard monitoring Results Review: All pre-operative results and documents have been reviewed as part of the pre- operative evaluation. Informed Consent: The patient's anesthetic plan and its attendant risks and benefits were discussed with the patient/family/POA. Questions were solicited and answers provided to the satisfaction of the patient/family/POA.
[2024-12-09] MEDS: ceFAZolin 2 GM in SODIUM CHLORIDE 0.9% IV 50 ML 100 ML IVPB (08:22)
[2024-12-09] MEDS: LIDOCAINE 2% GEL UROJET 10 ML PKG MUCOUS MEM (08:43)
--- NOTE | 2024-12-09 08:46 | S_PTH ---
PATIENT: Renyaldo Magallanes LOC: [facility] U#:[id number] AGE/SX: 44/M ROOM: RE12/09/[address]: Ishan Hernandez MD : 1980 BED: DIS: 12/09/2024 SPEC #: [id number] RECD: 12/09/24 10:27 STATUS: ANDREW REQ #: [id number] FELIPA: 12/09/24 08:[address]: Ishan Hernandez DEPT: [facility] Surgical RECD BY: Ping Robles ENTERED: 12/09/24 10:27 SP TYPE: Surgical OTHR DR: Kim Zepeda, ETHAN Tissues: A - Stone Procedures: Gross Exam Level 1 Crystalline Analysis
--- NOTE | 2024-12-09 08:59 | W.PM.PROC2 ---
Procedure Note - Detailed Date of Procedure 12/09/24 Pre-op Diagnosis Left ureteral stone Post-op Diagnosis Same Procedure Performed Cystoscopy, left ureteroscopy with laser lithotripsy, stone extraction and left ureteral stent placement Surgeon Ishan Hernandez MD Anesthesia General Description of Procedure patient is brought to the operative suite where he was prepped draped in routine sterile fashion while in a dorsal lithotomy position after the uneventful induction of a general LMA anesthetic. Cystoscopy was undertaken with a 19 F rigid cystoscope after placement of 2% xylocaine jelly in his urethra. There was no urethral stricture and very modest lateral lobe hyperplasia without median lobe enlargement of his prostate. Bladder mucosa is normal. There is no intravesical foreign body or neoplasm. Has a single orthotopic ureteral orifice bilaterally. A 0.035 in glidewire was advanced into his left renal pelvis and the distal ureter was dilated with an 8 F 10 F dilator. Ureteroscopy was undertaken with a 7.5 F flexible ureteral scope. His mid ureteral stone is impacted by ureteral edema. Using a 200 micron Tl laser fiber the stone is dusted. There was 1 sizable piece which is removed with a 1.9 F disposable stone basket. There were no significant residual stone fragments remaining. a 4.8 F variable length stent is positioned with proximal coil in renal pelvis and distal coil in the bladder. Scopes wires removed and he was taken recovery room good condition. Drains No Packing No Pathology Yes Complications No immediate complications
--- NOTE | 2024-12-09 11:03 | SUR.PHASEII ---
Vital signs stable. IV removed. Patient dressed and waiting for ride home.
== END 2024-12-09 11:11 | disposition home or self-care (01) ==
PROVIDERS: PCP Clinical Nurse Specialist; Visit Provider Urology
PROC: (CPT 52352; principal; 2024-12-09 08:30)
DX: N20.1 Calculus of ureter (principal); F17.220 Nicotine dependence, chewing tobacco, uncomplicated; E66.9 Obesity, unspecified; Z68.29 Body mass index [BMI] 29.0-29.9, adult
CPT/HCPCS: 52356; 82365; 88300; J0690; C1769; C2617; J1100; J2250; J2405; J2704; J7120; Q9966

== ENCOUNTER 2025-02-06 14:36 | Outpatient (CLI) | payer BC, MEDICAID, SELFPAY ==
--- OUTSIDE RECORDS SUMMARY | 2024-02-26 10:30 | XMS_ITS ---
Author Organization [facility] Office Address [address] [address] [place] [address] Care Team Providers Care Neon Sign Installer Name Role Phone Redd Sebastien Unavailable [phone] Social History Sex Assigned At : Social History Observation Description Sex Assigned At Male Problems Problem Type SNOMED Code ICD Code Onset Dates Problem Status W/U Status Risk Notes Problem Chronic kidney disease stage 2 (478917440) Chronic kidney disease, stage 2 (mild) (N18.2) Active confirmed Problem Calculus of kidney (75650122) Calculus of kidney (N20.0) Active confirmed Problem Essential hypertension (24602009) Essential (primary) hypertension (I10) Active confirmed Problem Renal osteodystrophy (15794554) Renal osteodystrophy (N25.0) Active confirmed Problem Chronic pain syndrome (061835616) Chronic pain syndrome (G89.4) Active confirmed Encounters Encounter Location Date Provider Diagnosis [place] [facility] [address] [facility] [address] [place] [address] 02/26/2024 Sebastien Rainey Chronic kidney disea se, stage 2 (mild) N18.2 ; Calculus of kidney N20.0 ; Essential (primary) hypertension I10 ; Renal osteodystrophy N25.0 and Chronic pain syndrome G89.4 Assessments Encounter Date Diagnosis (ICD Code) Assessment Notes Treatment Notes Treatment Clinical Notes Section Notes 02/26/2024 Chronic kidney disease, stage 2 (mild) (ICD-10 - N18.2) 02/26/2024 Calculus of kidney (ICD-10 - N20.0) 02/26/2024 Essential (primary) hypertension (ICD-10 - I10) 02/26/2024 Renal osteodystrophy (ICD-10 - N25.0) 02/26/2024 Chronic pain syndrome (ICD-10 - G89.4) Plan Of Treatment No Information Progress Notes * Tracy MAGALLANES:1980 (44 yo M)Acc No.[id number]:02/26/2024 Progress Notes Patient: Reynaldo PACHECO Provider: Kavitha VASQUEZ MD, F.A.C.P, F.A.S.N. :1980 A ge:43 Y S ex:Male Date:02/26/2024 Address:[address] [place], [place] [id number] Subjective: * Chief Complaints: * * Medical History: Objective: * Vitals: Assessment: * Assessment: 1. C hronic kidney disease, stage 2 (mild) - N18.2 (Primary) 2 . C alculus of kidney - N20.0 3 . E ssential (primary) hypertension - I10 4 . R enal osteodystrophy - N25.0 5 . C hronic pain syndrome - G89.4 ? Plan: * Treatment: * Billing Information: * Visit Code: 42937 Office Visit, New Pt., Level 4. * Procedure Codes: * Electronic signature of Joi Rainey MD on 02/06/2025 at 02:49 PM SENIOR BENEFITS ANALYST Sign off status: Pending * Provider: Kavitha VASQUEZ MD, F.A.C.P, F.A.S.N. Date: 0 02/26/2024 Generated for Printing/Faxing/eTransmitting on: 1 02:49 PM SENIOR BENEFITS ANALYST
--- OUTSIDE RECORDS SUMMARY | 2024-03-02 10:15 | XMS_ITS ---
Author Organization [facility] Address [address] [address] [place] [address] Care Team Providers Care Lockstitch Sleeve Setter Name Role Phone Sebastien Rainey Unavailable [phone] Social History Sex Assigned At : Social History Observation Description Sex Assigned At Male Problems Problem Type SNOMED Code ICD Code Onset Dates Problem Status W/U Status Risk Notes Problem Atrioventricular septal defect, unspecified as to partial or complete (Q21.20) Active confirmed Encounters Encounter Location Date Provider Diagnosis [place] [facility] [address] [facility] [address] [place] [address] 03/02/2024 Sebastien Rainey Chronic kidney disea se, stage 2 (mild) N18.2 ; Chronic pain syndrome G89.4 ; Renal osteodystrophy N25.0 ; Essential (primary) hypertension I10 ; Calculus of kidney N20.0 and Atrioventricular septal defect, unspecified as to partial or complete Q21.20 Assessments Encounter Date Diagnosis (ICD Code) Assessment Notes Treatment Notes Treatment Clinical Notes Section Notes 03/02/2024 Chronic kidney disease, stage 2 (mild) (ICD-10 - N18.2) 03/02/2024 Chronic pain syndrome (ICD-10 - G89.4) 03/02/2024 Renal osteodystrophy (ICD-10 - N25.0) 03/02/2024 Essential (primary) hypertension (ICD-10 - I10) 03/02/2024 Calculus of kidney (ICD-10 - N20.0) 03/02/2024 Atrioventricular septal defect, unspecified as to partial or complete (ICD-10 - Q21.20) Plan Of Treatment No Information Progress Notes * Reynaldo MAGALLANESDOB:1980 (44 yo M)Acc No.[id number]:03/02/2024 Progress Notes Patient: Reynaldo PACHECO Provider: Kavitha VASQUEZ MD, F.A.C.P, F.A.S.N. :1980 A ge:43 Y S ex:Male Date:03/02/2024 [id number] Subjective: * Chief Complaints: * * Medical History: Objective: * Vitals: Assessment: * Assessment: 1. C hronic kidney disease, stage 2 (mild) - N18.2 (Primary) 2 . C hronic pain syndrome - G89.4 3 . R enal osteodystrophy - N25.0 4 . E ssential (primary) hypertension - I10 5 . C alculus of kidney - N20.0 & #160; 6 . A trioventricular septal defect, unspecified as to partial or complete - Q21.20 ? Plan: * Treatment: * Billing Information: * Visit Code: 15597 Office Visit, Est Pt., Level 4. * Procedure Codes: * Electronic signature of Joi Rainey MD on 02/06/2025 at 02:49 PM CONSTRUCTION SITE CROSSING GUARD Sign off status: Pending * Provider: Kavitha VASQUEZ MD, Diann.RexP, F.A.S.N. Date: 0 03/02/2024 Generated for Printing/Faxing/eTransmitting on: 02:49 PM CONSTRUCTION SITE CROSSING GUARD
--- OUTSIDE RECORDS SUMMARY | 2024-03-16 12:30 | XMS_ITS ---
Author Organization [facility] Address [address] [place] [address] Care Team Providers Care Internist Medical Doctor Md Name Role Phone Sebastien Rainey Unavailable [phone] Social History Sex Assigned At : Social History Observation Description Sex Assigned At Male Encounters Encounter Location Date Provider Diagnosis [place] [facility] [address] [facility] [address] [place] [address] 03/16/2024 Sebastien Rainey Plan Of Treatment No Information Progress Notes * Reynaldo MAGALLANESDOB:1980 (44 yo M)Acc No.[id number]:03/16/2024 Progress Notes Patient: Reynaldo PACHECO Provider: Kavitha VASQUEZ MD, Diann.Michael.C.P, F.A.S.N. :1980 A ge:43 Y S ex:Male Date:03/16/2024 Address:[address] [place] [address] [id number] Subjective: * Chief Complaints: * * Medical History: Objective: * Vitals: Assessment: Plan: * Treatment: * Billing Information: * Visit Code: * Procedure Codes: * Electronic signature of Joi Rainey MD on 02/06/2025 at 02:49 PM MANAGER RN Sign off status: Pending * Provider: Kavitha VASQUEZ MD, F.Michael.C.P, F.A.S.N. Date: 0 03/16/2024 Generated for Printing/Faxing/eTransmitting on: 02:49 PM MANAGER RN
--- NOTE | ~2025-02-06 | XR_ITS ---
EXAMINATION: XR hand LT min 3V, XR hand RT min 3V DATE: 02/06/2025 14:58 INDICATION: Bilateral hand pain TECHNIQUE: 1. Posteroanterior, oblique and lateral views of the left hand were obtained. 2. Posteroanterior, oblique and lateral views of the right hand were obtained. COMPARISON: None. FINDINGS: Normal alignment at both hands. No fracture. Relatively symmetric polyarticular osteoarthritis, mild at the bilateral distal radioulnar, second metacarpophalangeal and first interphalangeal joints and minimal at the radial aspect of the carpus and a few additional metacarpophalangeal and interphalangea l joints. No erosions to suggest inflammatory arthritis. Soft tissues are unremarkable.. IMPRESSION: 1. 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 Reviewed, dictated and finalized at location A. ANICAL SERVICE SPECIALIST IMPRESSION: 1. Minimal to mild polyarticular osteoarthritis at the bilateral hands and wris ts.
--- OUTSIDE RECORDS SUMMARY | 2025-02-06 14:49 | XMS_ITS | Patient Health Record ---
Author Organization [facility] Address [address] [facility] [address] [facility] [address] [place] [address] Care Team Providers Care Parking Technician Name Role Phone Sebastien Rainey Unavailable [phone] Reason For Referral No Information Social History Sex Assigned At : Social History Observation Description Sex Assigned At Male Problems Problem Type SNOMED Code ICD Code Onset Dates Problem Status W/U Status Risk Notes Problem Chronic pain syndrome (216591647) Chronic pain syndrome (G89.4) Active confirmed Problem Essential hypertension (20070897) Essential (primary) hypertension (I10) Active confirmed Problem Chronic kidney disease stage 2 (722277310) Chronic kidney disease, stage 2 (mild) (N18.2) Active confirmed Problem Calculus of kidney (26013399) Calculus of kidney (N20.0) Active confirmed Problem Renal osteodystrophy (38243469) Renal osteodystrophy (N25.0) Active confirmed Problem Atrioventricular septal defect, unspecified as to partial or complete (Q21.20) Active confirmed Encounters Encounter Location Date Provider Diagnosis [facility] [address] [place] [address] 02/26/2024 Sebastien Rainey Chronic kidney disea se, stage 2 (mild) N18.2 ; Calculus of kidney N20.0 ; Essential (primary) hypertension I10 ; Renal osteodystrophy N25.0 and Chronic pain syndrome G89.4 [facility] [address] [address] 03/02/2024 Sebastien Rainey Chronic kidney disea se, stage 2 (mild) N18.2 ; Chronic pain syndrome G89.4 ; Renal osteodystrophy N25.0 ; Essential (primary) hypertension I10 ; Calculus of kidney N20.0 and Atrioventricular septal defect, unspecified as to partial or complete Q21.20 [facility] [address] [address] 03/02/2024 Sebastien Rainey [facility] [address] [facility] [address] [place] [address] 03/02/2024 Sebastien Rainey [facility] [address] [facility] [address] [place] [address] 03/02/2024 Sebastien Rainey Assessments Encounter Date Diagnosis [...]
--- OUTSIDE RECORDS SUMMARY | 2025-02-06 14:50 | XMS_ITS | Clinical Summary ---
Author Organization [facility] Address [address] [facility] [place] [address] Care Team Providers Care Gaming Pit Boss Name Role Phone Ken Fermin MD Primary Care Provider [phone] Source Comments [facility],non-owned Affiliates and Associated Physician Practices is amultiple site organization consisting of ambulatory clinics and hospital sitesin [place], [place] and [place]. This disclosure is being madepursuant to the Care Everywhere program and may not contain all information available regarding this patient. Last updated 17.[facility] Allergies Active Allergy Reactions Criticality Noted Date [...] DEPRESSION SCREENING 02/10/2024 COVID-19 VACCINE ( - 2024-2 6 season) 2024 INFLUENZA VACCINE (#1) 2024 ZOSTER [...] this topic Medical Devices Implanted Type Area Pediatric Clinical Nurse Specialist Device Identifier Shelf Expiration Date Model / Serial / Lot Stent Uret 6fr 26cm Pgtl Crv Tpr Tip Implanted:Qty: 1 on 11/04/2017 by Corrie Clarke DO at [facility] Left: [facility] [employer] 04/19/2020 [id number] / / Insurance MEDICAID - [place] [facility] SELF PAY NO INSURANCE Member Subscriber Plan / Payer (Ef fective for All Dates) Name:Reynaldo Magallanes Member ID:Not on file Relation to Subscriber:Not on file Name:REYNALDO MAGALLANES Subscriber ID:Not on file (Home) Address: [address] [place] [id number] Payer ID:Not on file Group ID:Not on file Type:Self Pay Address: [facility] Advance Directives * Full Code (Latest Code Status on File) Date Activated Date Inactivated Comments 08/15/2018 4:27 PM 08/16/2018 5:47 PM * Full Code Date Activated Date Inactivated Comments 11/04/2017 10:54 AM 11/04/2017 6:01 PM * Full Code Date Activated Date Inactivated Comments 11/02/2017 9:22 PM 11/03/2017 6:42 PM Care Teams Gaming Pit Boss Relationship Specialty [place] [address] [place] [id number] PCP - General 12/16/17
== END 2025-02-06 14:37 | disposition home or self-care (01) ==
PROVIDERS: PCP Clinical Nurse Specialist; Visit Provider Pain Medicine Interventional Pain Medicine
DX: M19.041 Primary osteoarthritis, right hand (principal); M19.042 Primary osteoarthritis, left hand; M19.031 Primary osteoarthritis, right wrist; M19.032 Primary osteoarthritis, left wrist
CPT/HCPCS: 73130